=== PATIENT | male | born 1950 | race African-American/Black ===

== ENCOUNTER 2019-01-30 12:18 | Emergency (ER) | payer MEDICARE ==
[2019-01-30 12:45] LABS: Mean Corpuscular HGB CONC 33.2 g/dL (32.0-36.0); Mean Corpuscular Hemoglobin 30.6 pg (27.0-31.0); Mean Corpuscular Volume 92.2 fL (78.0-98.0); Mean Platelet Volume 7.5 fL (7.4-10.4); Platelet Count 259 thou/uL (130-400); RBC Distribution Width 12.5 % (11.5-14.5); Red Blood Cell (RBC) Count 4.24 mill/uL (4.70-6.10); White Blood Cell (WBC) Count 4.3 thou/uL (4.8-10.8)
--- NOTE | 2019-01-30 12:53 | RAD ---
EXAM: Portable chest PROVIDED CLINICAL HISTORY: Chest pain COMPARISON: 11/19/2016 FINDINGS: Cardiac and mediastinal silhouette is within normal limits. No focal consolidation, pleural fluid or pneumothorax evident. Implanted loop recorder overlies the left heart. IMPRESSION: No evidence for an acute cardiopulmonary process.
[2019-01-30 13:02] LABS: Lymphocytes 62 % (21-51); MDiff Complete? YES; Monocytes 8 % (0-10); Neutrophil 30 % (42-75); Platelet Morphology Comment Appears Adequate
[2019-01-30 13:09] LABS: ALT (SGPT) 7 U/L (8-55); AST (SGOT) 14 U/L (5-34); Albumin 4.2 g/dL (3.4-4.8); Alkaline Phosphatase 63 U/L (40-150); Anion Gap 10 mmol/L (10-20); BUN (Urea Nitrogen) 8 mg/dL (8.4-25.7); Bilirubin, Total 1.1 mg/dL (0.2-1.2); CK (CPK) 75 U/L (30-200); Calc. Creatinine Clearance 0 mL/min (70-130); Calcium 9.7 mg/dL (7.8-10.44); Carbon Dioxide 29 mmol/L (23-31); Chloride 101 mmol/L (98-107); Estimated GFR-MDRD 88; Globulin 3.5 g/dL (2.4-3.5); Glucose 96 mg/dL (80-115); Lipase 7 U/L (8-78); Potassium 3.8 mmol/L (3.5-5.1); Protein, Total 7.7 g/dL (5.8-8.1); Sodium 136 mmol/L (136-145)
== END 2019-01-30 14:08 | disposition home or self-care (01) ==
LOC: ERS 12:18
DX: R07.9 Chest pain, unspecified (principal); E78.5 Hyperlipidemia, unspecified; E78.00 Pure hypercholesterolemia, unspecified; I10 Essential (primary) hypertension; G30.9 Alzheimer's disease, unspecified; F02.80 Dementia in other diseases classified elsewhere, unspecified severity, without behavioral disturbance, psychotic disturbance, mood disturbance, and anxiety; F20.9 Schizophrenia, unspecified; F41.9 Anxiety disorder, unspecified; F32.9 Major depressive disorder, single episode, unspecified; Z79.899 Other long term (current) drug therapy; Z86.73 Personal history of transient ischemic attack (TIA), and cerebral infarction without residual deficits
CPT/HCPCS: 36415; 71045; 80053; 82550; 83690; 83880; 84484; 85025; 93005; 94760

== ENCOUNTER 2019-02-18 13:05 | Emergency (ER) | payer MEDICARE ==
--- NOTE | 2019-02-18 13:48 | CT ---
CT OF BRAIN PERFORMED WITHOUT CONTRAST ENHANCEMENT: HISTORY: Syncope. COMPARISON: 10/15/2016 exam. FINDINGS: Mild ventricular and sulcal prominence. There are no signs of intracerebral hemorrhage or extraaxial fluid collections. The mastoid air cells and visualized sinuses are clear. IMPRESSION: No acute intracranial abnormalities. POS: TPC
--- NOTE | 2019-02-18 13:58 | RAD ---
XR Chest 1 View Portable History: Dizziness. Generalized weakness Comparison: Radiograph January 30, 2019 Findings: Lungs are without focal confluent airspace consolidation, pneumothorax, or effusion. No acu te osseous abnormality. Mild degenerative changes both acromioclavicular joints. Impression: No acute intrathoracic abnormality.
[2019-02-18 14:01] LABS: #Basophils 0.1 thou/uL (0.0-0.2); #Eosinphils 0.1 thou/uL (0.0-0.7); #Lymphocytes 1.8 thou/uL (1.20-3.40); #Monocytes 0.4 thou/uL (0.11-0.59); #Neutrophils 1.5 thou/uL (1.40-6.50); %Basophils 1.5 % (0.0-1.0); %Eosinophils 2.9 % (0.0-10.0); %Lymphocytes 45.9 % (21.0-51.0); %Monocytes 10.5 % (0.0-10.0); %Neutrophils 39.3 % (42.0-75.0); Hemoglobin 12.5 g/dL (14.0-18.0); Mean Corpuscular HGB CONC 32.8 g/dL (32.0-36.0); Mean Corpuscular Hemoglobin 29.9 pg (27.0-31.0); Mean Corpuscular Volume 91.2 fL (78.0-98.0); Mean Platelet Volume 8.2 fL (7.4-10.4); Platelet Count 181 thou/uL (130-400); RBC Distribution Width 11.9 % (11.5-14.5); Red Blood Cell (RBC) Count 4.18 mill/uL (4.70-6.10); White Blood Cell (WBC) Count 3.9 thou/uL (4.8-10.8)
[2019-02-18 14:21] LABS: Anion Gap 11 mmol/L (10-20); BUN (Urea Nitrogen) 7 mg/dL (8.4-25.7); Calc. Creatinine Clearance 0 mL/min (70-130); Calcium 9.2 mg/dL (7.8-10.44); Carbon Dioxide 28 mmol/L (23-31); Chloride 103 mmol/L (98-107); Estimated GFR-MDRD 89; Glucose 106 mg/dL (80-115); Potassium 3.5 mmol/L (3.5-5.1); Sodium 138 mmol/L (136-145)
[2019-02-18 16:00] LABS: Bilirubin Negative (Negative); Blood, Urine Negative (Negative); Clarity Turbid (Clear); Glucose, Urine (Dipstick) Normal (Negative); Leukocyte Negative Leu/uL (Negative); Nitrite Negative (Negative); Protein, Urine (Dipstick) 20 mg/dL (Neg-Trace); Urobilinogen Greater than 12 mg/dL (Less than 2)
== END 2019-02-18 16:58 | disposition home or self-care (01) ==
LOC: ERS 13:05
DX: R53.1 Weakness (principal); Z86.73 Personal history of transient ischemic attack (TIA), and cerebral infarction without residual deficits; E78.5 Hyperlipidemia, unspecified; I10 Essential (primary) hypertension; G30.9 Alzheimer's disease, unspecified; F41.9 Anxiety disorder, unspecified; F32.9 Major depressive disorder, single episode, unspecified; F20.9 Schizophrenia, unspecified; Z79.899 Other long term (current) drug therapy
CPT/HCPCS: 36415; 70450; 71045; 80048; 81003; 84484; 85025; 93005

== ENCOUNTER 2019-02-21 14:29 | Observation (INO) | payer MEDICARE, OTHER ==
[2019-02-21 14:56] LABS: #Basophils 0.1 thou/uL (0.0-0.2); #Eosinphils 0.1 thou/uL (0.0-0.7); #Lymphocytes 1.4 thou/uL (1.20-3.40); #Monocytes 0.4 thou/uL (0.11-0.59); #Neutrophils 4.4 thou/uL (1.40-6.50); %Basophils 0.9 % (0.0-1.0); %Eosinophils 1.4 % (0.0-10.0); %Lymphocytes 21.7 % (21.0-51.0); %Monocytes 6.9 % (0.0-10.0); %Neutrophils 69.1 % (42.0-75.0); Hemoglobin 12.4 g/dL (14.0-18.0); Mean Corpuscular HGB CONC 33.4 g/dL (32.0-36.0); Mean Corpuscular Hemoglobin 30.3 pg (27.0-31.0); Mean Corpuscular Volume 90.8 fL (78.0-98.0); Mean Platelet Volume 7.7 fL (7.4-10.4); Platelet Count 193 thou/uL (130-400); Red Blood Cell (RBC) Count 4.11 mill/uL (4.70-6.10); White Blood Cell (WBC) Count 6.3 thou/uL (4.8-10.8)
--- NOTE | 2019-02-21 15:21 | CT ---
Head CT without contrast 02/21/2019: COMPARISON: 02/18/2019 HISTORY: Syncope, fall TECHNIQUE: Axial CT imaging at 5 mm intervals from vertex through skull base without contrast FINDINGS: The imaged paranasal sinuses/mastoid air cells are well aerated. No displaced calvarial fra cture is noted. There is no intracranial hemorrhage, midline shift, mass effect, or ventricular enlargement. IMPRESSION: No acute findings in stable head CT.
--- NOTE | 2019-02-21 15:30 | RAD ---
Portable chest: HISTORY: Syncope COMPARISON: none FINDINGS: Lung robbins are clear. Heart and mediastinum appear unremarkable. Vascularity is normal. Visualized osseous structures unremarkable. IMPRESSION: No acute finding
[2019-02-21 15:36] LABS: ALT (SGPT) 12 U/L (8-55); AST (SGOT) 17 U/L (5-34); Albumin 4.1 g/dL (3.4-4.8); Alkaline Phosphatase 62 U/L (40-110); Anion Gap 13 mmol/L (10-20); BUN (Urea Nitrogen) 8 mg/dL (8.4-25.7); Bilirubin, Total 0.5 mg/dL (0.2-1.2); CK (CPK) 73 U/L (30-200); Calc. Creatinine Clearance 0 mL/min (70-130); Calcium 9.5 mg/dL (7.8-10.44); Carbon Dioxide 28 mmol/L (23-31); Chloride 101 mmol/L (98-107); Estimated GFR-MDRD Greater than 90; Globulin 3.3 g/dL (2.4-3.5); Glucose 109 mg/dL (80-115); Potassium 3.2 mmol/L (3.5-5.1); Protein, Total 7.4 g/dL (5.8-8.1); Sodium 139 mmol/L (136-145)
[2019-02-21] MEDS ORDERED: Aspirin 325 MG TAB ONE (16:24)
[2019-02-21 18:26] LABS: Troponin I Less than 0.010 ng/mL (< 0.028)
[2019-02-21] MEDS ORDERED: Potassium Chloride 20 MEQ TAB PO SCH (20:15)
[2019-02-21 21:26] LABS: Troponin I Less than 0.010 ng/mL (< 0.028)
[2019-02-21 21:28] VITALS: BMI 19.5
--- NOTE | 2019-02-21 21:34 | PDOC.EVN ---
Event Note - Event Note Event Note: [id number] HP
--- NOTE | 2019-02-22 01:12 | HP ---
CHIEF COMPLAINT: Syncope. HISTORY OF PRESENT ILLNESS: Mr. Del Rosario is a 69-year-old male with past medical history of CVA, hyperlipidemia, hypertension, dementia, coronary artery disease, and recurrent syncope, presents to the emergency room after syncopal episode witnessed by the family. Also, the patient few days ago had a near syncope. As per family, the patient had a monitoring and evaluation advisor for those events, but as per family, it was not connected?. The patient sees a culinary manager, Dr. Hurt in [place]. Workup in the emergency room including chest x-ray, CT of the brain, EKG unremarkable. The patient's daughter reports the patient was admitted in [place] 2 years ago for similar and was found to have 30% blockage of his arteries. The patient does have a loop recorder and the family will get the device to transmit from home. The patient is being admitted to the hospital for further management. PAST MEDICAL HISTORY: 1. CVA. 2. Syncope. 3. Hypertension. 4. Hyperlipidemia. 5. Alzheimer disease. ALLERGIES: NO KNOWN ALLERGIES. HOME MEDICATIONS: Please see home medication reconciliation form for updated medications. FAMILY HISTORY: Reviewed, noncontributory. REVIEW OF SYSTEMS: Review of 14 systems negative except what is mentioned in history of present illness. PHYSICAL EXAMINATION: GENERAL: The patient is awake, alert. VITAL SIGNS: Blood pressure 114/68, pulse is 63, respiratory rate is 16, temperature 97.5. HEAD AND NECK: Normocephalic, atraumatic. NECK: Supple. No JVD. CHEST: Fair bilateral air entry. HEART: S1, S2. Regular. ABDOMEN: Soft, nontender. Bowel sounds present. NEUROLOGIC: Awake, alert, and oriented. PSYCHIATRIC: Unable to assess. EXTREMITIES: No clubbing or cyanosis. LABORATORY DATA: WBC 6.3, hemoglobin 12.4, platelets 193. Sodium 139, potassium 3.2, BUN 8, creatinine 0.9. Initial troponin 0.01, repeat troponin 0.01. ASSESSMENT: 1. Syncope, recurrent, the patient has a loop recorder. 2. Hypertension. 3. Hyperlipidemia. 4. Alzheimer dementia. PLAN: 1. Admit. 2. Telemetry monitoring. 3. Serial cardiac enzymes. 4. 2D echo. 5. Orthostatic vital signs. 6. Consider Cardiology consultation in a.m., this patient has been having recurrent syncopal episode, he has a loop recorder. As per family, it is not connected? 7. Reconcile home medications. 8. DVT prophylaxis as appropriate. 9. Expected length of stay, at least 1 midnight if the patient is stable and further workup negative. Job ID: [id number]
[2019-02-22] MEDS ORDERED: Aspirin 325 mg Enteric Coated Tablet PO SCH (09:00)
--- NOTE | 2019-02-22 11:24 | CON ---
DATE OF CONSULTATION: HISTORY OF PRESENT ILLNESS: The patient is a 69-year-old gentleman, who presented after losing consciousness. The patient is unable to give a clear history. He sees a bar tacker in [place]. The patient apparently underwent a cardiac catheterization, found to have mild coronary artery disease about a year ago. The patient suffers from Alzheimer disease. The patient also apparently has orthostatic hypotension and is on midodrine. The patient was admitted with a syncopal episode. He apparently lost consciousness a few days ago. It is unclear if he has been compliant with his medications. The patient has a loop recorder placed. The patient denies having any chest pain. PAST MEDICAL HISTORY: 1. Coronary artery disease. 2. Hypertension. 3. Alzheimer disease. 4. Hyperlipidemia. PAST SURGICAL HISTORY: None. ALLERGIES: NO KNOWN DRUG ALLERGIES. FAMILY HISTORY: There is no strong family history of heart disease. MEDICATIONS: 1. Risperidone 2 at bedtime. 2. Potassium 10 daily. 3. Protonix 40 daily. 4. Midodrine 10 t.i.d. 5. Magnesium oxide 400 b.i.d. 6. Folic acid one tablet daily. 7. Lipitor 40 at bedtime. REVIEW OF SYSTEMS: Review of systems otherwise is unremarkable. PHYSICAL EXAMINATION: GENERAL: Confused gentleman. VITAL SIGNS: Blood pressure of sitting 105/66, standing 103/64, supine 122/66. NECK: No jugular venous distention. LUNGS: Clear to auscultation. HEART: Regular rate and rhythm. Normal S1 and S2. No murmurs. ABDOMEN: Nondistended. EXTREMITIES: Showed no edema. VASCULAR: Radial pulses are 2+. LABORATORY DATA: Sodium 139, potassium 3.2, chloride 101, bicarbonate 28, BUN 8 , and creatinine 0.91, glucose 109. White blood cell count 6.3, hemoglobin 12.4, hematocrit 37.3, platelets 193. IMAGING STUDIES: EKG reveals him to have sinus bradycardia with Q-wave suggestive of septal infarct. IMPRESSION: 1. Syncope, probably orthostatic. 2. Alzheimer disease. 3. History of cerebrovascular accident. 4. History of coronary artery disease. 5. Dyslipidemia. Unfortunately, this gentleman had a syncopal episode. His bar tacker has him on midodrine and has placed a loop recorder. Would interrogate the loop recorder. We will obtain records from his bar tacker. We will follow this patient with you through his hospitalization. Melquiades ID: [id number] MTDD
[2019-02-22 16:11] VITALS: BP 105/63; TEMP 97.9
--- NOTE | 2019-02-22 18:57 | DIS ---
DATE OF ADMISSION: 02/21/2019 DATE OF DISCHARGE: 02/22/2019 DISCHARGE DIAGNOSES: 1. Syncopal episode, likely due to orthostatic hypotension. 2. Orthostatic hypotension. 3. Hypokalemia, mild. 4. Alzheimer dementia, mild. 5. Deconditioning. CONSULTATIONS: Dr. Jesse Warner with Cardiology Service. PERTINENT LABORATORY AND X-RAY FINDINGS: Potassium 3.2, creatinine 0.91. Troponin I negative x3. CBC showed a white hemoglobin of 12.4, hematocrit 37.3, platelet count 193. CT of the brain without contrast dated 02/21/2019, showed no acute intracranial process. Portable chest x-ray dated 02/21/2019, showed no acute process. 2D transthoracic echocardiogram dated 02/22/2019, showed ejection fraction of 55% to 60%. Diastolic dysfunction noted. Loop recorder interrogation showed normal functioning device since last interrogation on 11/16/2018. HOSPITAL COURSE: The patient was observed on the telemetry unit after initially presenting status post syncopal episode. The patient underwent an extensive evaluation including neuroimaging and metabolic evaluation without an acute intracranial process identified. The patient was noted with orthostatic changes on vital sign assessment with recommendations to continue midodrine 10 mg t.i.d. The patient underwent interrogation of his loop recorder showing no acute dysrhythmia or pauses to explain the patient's presentation. 2D transthoracic echocardiogram was performed showing overall preserved ejection fraction and cardiac efficiency. Overall, the patient did remain clinically stable during the hospital course with stable vital signs. I have examined the patient and discussed followup with the patient's daughter and the patient, who verbalized understanding and in agreement. The patient overall clinically stable and ready for discharge on 02/22/2019. DISCHARGE MEDICATIONS: 1. Lipitor 40 mg p.o. at bedtime. 2. Vitamin D3 of 2000 units p.o. daily. 3. Vitamin B12 of 1000 mcg p.o. daily. 4. Folic acid 1 mg p.o. daily. 5. Multivitamin 1 tablet p.o. daily. 6. Potassium chloride 10 mEq p.o. daily. 7. Risperdal 2 mg p.o. at bedtime. 8. Magnesium oxide 400 mg p.o. b.i.d. 9. Midodrine 10 mg p.o. t.i.d. 10. Protonix 40 mg p.o. daily. FOLLOWUP: The patient is to follow up with his primary care provider, Dr. López after discharge. CONDITION ON DISCHARGE: Stable. ACTIVITY: Ad-bethany. DIET: Heart healthy. CODE STATUS: Full. DISPOSITION: Home on 02/22/2019. Job ID: [id number]
--- NOTE | 2019-02-26 14:39 | EKG ---
Test Reason : Blood Pressure : / mmHG Vent. Rate : 059 BPM Atrial Rate : 059 BPM P-R Int : 144 ms QRS Dur : 072 ms QT Int : 444 ms P-R-T Axes : 073 039 058 degrees QTc Int : 439 ms Sinus bradycardia Septal infarct , age undetermined Abnormal ECG Confirmed by SHIRLEY FRANKLIN DO ([id number]), food expeditor FLAVIA JAFFE ([id number]) on 02/26/2019 2:38:38 PM Referred By: Confirmed By:SHIRLEY FRANKLIN DO
== END 2019-02-22 19:41 | disposition home or self-care (01) ==
LOC: ERS 14:29 → ERHOLD 16:55 → EEVIPCON 16:55 → 2SW 21:39
PROVIDERS: ADMIT Internal Medicine; ATTEND Internal Medicine
DX: I95.1 Orthostatic hypotension (principal); I10 Essential (primary) hypertension; I25.10 Atherosclerotic heart disease of native coronary artery without angina pectoris; E78.5 Hyperlipidemia, unspecified; E87.6 Hypokalemia; G30.9 Alzheimer's disease, unspecified; F02.80 Dementia in other diseases classified elsewhere, unspecified severity, without behavioral disturbance, psychotic disturbance, mood disturbance, and anxiety; F41.9 Anxiety disorder, unspecified; F32.9 Major depressive disorder, single episode, unspecified; Z79.899 Other long term (current) drug therapy; Z86.73 Personal history of transient ischemic attack (TIA), and cerebral infarction without residual deficits; Z88.0 Allergy status to penicillin
CPT/HCPCS: 70450; 71045; 80053; 82550; 84484 ×2; 85025; 93005; 93306; 99285; G0378 ×3; 36415

== ENCOUNTER 2019-07-07 12:45 | Emergency (ER) | payer MEDICARE, OTHER ==
[2019-07-07 13:20] LABS: #Eosinphils 0.1 thou/uL (0.0-0.7); #Lymphocytes 2.3 thou/uL (1.20-3.40); #Monocytes 0.6 thou/uL (0.11-0.59); #Neutrophils 2.4 thou/uL (1.40-6.50); %Basophils 0.5 % (0.0-1.0); %Eosinophils 1.6 % (0.0-10.0); %Lymphocytes 42.2 % (21.0-51.0); %Neutrophils 44.7 % (42.0-75.0); Hemoglobin 12.4 g/dL (14.0-18.0); Mean Corpuscular HGB CONC 32.4 g/dL (32.0-36.0); Mean Corpuscular Hemoglobin 29.8 pg (27.0-31.0); Mean Corpuscular Volume 92.1 fL (78.0-98.0); Mean Platelet Volume 8.2 fL (7.4-10.4); Platelet Count 187 thou/uL (130-400); RBC Distribution Width 12.7 % (11.5-14.5); Red Blood Cell (RBC) Count 4.17 mill/uL (4.70-6.10); White Blood Cell (WBC) Count 5.3 thou/uL (4.8-10.8)
--- NOTE | 2019-07-07 13:39 | RAD ---
SINGLE VIEW OF THE CHEST: 07/07/19 COMPARISON: 02/21/19 HISTORY: Syncope. FINDINGS: Single view of the chest shows a normal sized cardiomediastinal silhouette. Cardiac monitoring device projects over the left chest wall. There is no evidence of consolidation, mass, pleural effusion. De generative changes are seen in the spine. IMPRESSION: No evidence of acute cardiopulmonary disease. POS: TPC
[2019-07-07 13:46] LABS: ALT (SGPT) 12 U/L (8-55); AST (SGOT) 21 U/L (5-34); Albumin 4.1 g/dL (3.4-4.8); Alkaline Phosphatase 70 U/L (40-110); Anion Gap 13 mmol/L (10-20); BUN (Urea Nitrogen) 11 mg/dL (8.4-25.7); Bilirubin, Total 0.5 mg/dL (0.2-1.2); CK (CPK) 350 U/L (30-200); Calc. Creatinine Clearance 0 mL/min (70-130); Calcium 9.4 mg/dL (7.8-10.44); Carbon Dioxide 28 mmol/L (23-31); Chloride 103 mmol/L (98-107); Estimated GFR-MDRD 90; Globulin 3.2 g/dL (2.4-3.5); Glucose 104 mg/dL (80-115); Potassium 3.9 mmol/L (3.5-5.1); Protein, Total 7.3 g/dL (5.8-8.1); Sodium 140 mmol/L (136-145)
--- NOTE | 2019-07-07 14:12 | CT ---
Exam: CT brain PROVIDED CLINICAL HISTORY: Syncope COMPARISON: 02/21/2019 FINDINGS: The ventricular system is normal in size and morphology. No evidence for intracranial hemorrhage or mass effect. The extracranial soft tissues and osseous structures demonstrate no evidence for an acute abnormality. IMPRESSION: No evidence for intracranial hemorrhage or mass effect.
[2019-07-07 15:07] LABS: Bilirubin Negative (Negative); Blood, Urine Negative (Negative); Clarity Clear (Clear); Glucose, Urine (Dipstick) Normal (Negative); Leukocyte Negative Leu/uL (Negative); Nitrite Negative (Negative); Protein, Urine (Dipstick) Negative (Neg-Trace); Urobilinogen 3 mg/dL (Less than 2)
--- NOTE | 2019-07-10 01:33 | EKG ---
Test Reason : Blood Pressure : / mmHG Vent. Rate : 067 BPM Atrial Rate : 067 BPM P-R Int : 138 ms QRS Dur : 074 ms QT Int : 400 ms P-R-T Axes : 061 049 068 degrees QTc Int : 422 ms Normal sinus rhythm Normal ECG Confirmed by ALEJANDRA JACKSON ([id number]), web content editor CAPO RILEY ([id number]) on 07/10/2019 1:32:46 AM Referred By: Confirmed By:ALEJANRDA Eastman
== END 2019-07-07 19:17 | disposition home or self-care (01) ==
LOC: ERS 12:45
DX: R55 Syncope and collapse (principal); E78.5 Hyperlipidemia, unspecified; E78.00 Pure hypercholesterolemia, unspecified; G30.9 Alzheimer's disease, unspecified; F41.9 Anxiety disorder, unspecified; F20.9 Schizophrenia, unspecified; Z86.73 Personal history of transient ischemic attack (TIA), and cerebral infarction without residual deficits; Z79.899 Other long term (current) drug therapy
CPT/HCPCS: 36415; 70450; 71045; 80053; 81003; 82550; 84484; 85025; 93005; 94760; 96360

== ENCOUNTER 2020-04-10 15:20 | Inpatient (IN) | payer MEDICARE ==
--- NOTE | 2020-04-10 15:47 | RAD ---
XR Chest 1 View Portable HISTORY: Altered mental status COMPARISON: 07/07/2019 FINDINGS: The heart size is normal. There are hazy opacities in the right medial lung base. No pneumo thoraces or pleural effusions are seen. Possibility of pneumonia should be considered.
[2020-04-10] MEDS ORDERED: Vancomycin 1 GM/200 ML BAG ONE (15:53)
[2020-04-10] MEDS ORDERED: Cefepime 2 GM VIAL ONE (15:53)
[2020-04-10 16:15] LABS: Actual Bicarbonate (HCO3a) 22.9 mEq/L (22-28); Analyzer IN Cardio ER; Base Excess (BEa) 0.9 mEq/L (-2.0 to +3.0); CO2 Tension 29.2 mmHg (35.0-45.0); Calcium, Ionized (arterial) 1.17 mmol/L (1.12-1.30); Carboxyhemoglobin (COHb) 0.2 gm% (0.0-3.0); Hemoglobin (Hb) 13.5 g/dL (14.0-18.0); Potassium - ABG Lab 3.54 mmol/L (3.70-5.30); pH, Arterial 7.51 (7.35-7.45)
[2020-04-10 16:18] LABS: O2 Tension (PaO2), arterial 54.9 mmHg (> 70.0); Puncture Site RBA
[2020-04-10 16:26] LABS: Bilirubin Negative (Negative); Blood, Urine 3+ (Negative); Clarity Turbid (Clear); Glucose, Urine (Dipstick) Normal (Negative); Ketone, Urine 20 mg/dL (Negative); Leukocyte Negative Leu/uL (Negative); Nitrite Negative (Negative); Protein, Urine (Dipstick) 70 mg/dL (Neg-Trace); Specific Gravity, Urine 1.031 (1.002-1.036); Urobilinogen Normal mg/dL (Less than 2); WBC/HPF 0-3 HPF (0-3); pH, Urine 5.5 (5.0-9.0)
--- NOTE | 2020-04-10 16:37 | CT ---
CT HEAD WITHOUT CONTRAST: 04/10/20 INDICATIONS: Mental status change. Found unresponsive. COMPARISON: Comparison made to head CT of 07/07/19. FINDINGS: Ventricles have normal size and position. No evidence of intracranial mass, hemorrhage, infarct, or o ther acute process. No interval change. The paranasal sinuses are clear. Mucous retention cyst in the left maxillary antrum. IMPRESSION: No acute intracranial process identified. POS: AGW
[2020-04-10 16:38] LABS: Bacteria/HPF Rare-Few HPF (None Seen); Squamous Epithelial 0-3 HPF (0-3)
[2020-04-10 16:40] LABS: Amphetamine Not Detected (NotDetected); Barbiturates Screen Not Detected (NotDetected); Benzodiazepine Screen Not Detected (NotDetected); Cocaine Metabolite Screen Not Detected (NotDetected); Medtox Control Line Valid? VALID (VALID); Medtox Reader # READER 1; Methadone Not Detected (NotDetected); Methamphetamine Not Detected (NotDetected); Opiate Screen Not Detected (NotDetected); Oxycodone Screen Not Detected (NotDetected); Phencyclidine (PCP) Not Detected (NotDetected); THC/Cannabinoid Screen Not Detected (NotDetected); Tricyclic Screen Not Detected (NotDetected)
--- NOTE | 2020-04-10 16:40 | CT ---
CT CERVICAL SPINE WITHOUT CONTRAST: 04/10/20 INDICATION: 70-year-old male fond unresponsive lying in bed with urine of unknown amount of time. COMPARISON: None. FINDINGS: Spinal alignment is preserved. There is advanced disc degenerative disease of C5-6 and C6-7 with mult ilevel severe facet osteoarthritic change. No acute fracture or subluxation is evident. Prevertebral soft tissues appear within normal limits. Craniocervical junction appears within normal limits. The v isualized lung apices are clear. IMPRESSION: No acute fracture or subluxation demonstrated. POS:
[2020-04-10 17:20] LABS: SARS-CoV-2 NAA Rapid Test Not Detected (NotDetected)
[2020-04-10 17:21] LABS: Hemoglobin 13.9 g/dL (14.0-18.0); Mean Corpuscular HGB CONC 31.2 g/dL (32.0-36.0); Mean Corpuscular Hemoglobin 28.9 pg (27.0-31.0); Mean Corpuscular Volume 92.7 fL (78.0-98.0); Mean Platelet Volume 9.3 fL (7.4-10.4); Platelet Count 153 thou/uL (130-400); RBC Distribution Width 14.2 % (11.5-14.5); White Blood Cell (WBC) Count 9.4 thou/uL (4.8-10.8)
[2020-04-10 17:35] LABS: Acetaminophen Less than 6.0 mcg/mL (10.0-30.0); Alcohol Less than 10 mg/dL (Less than 10); Salicylate Less than 8.0 mg/dL (15.0-30.0)
[2020-04-10] MEDS ORDERED: Acetaminophen 650 MG Suppository PR PRN (17:38)
[2020-04-10] MEDS ORDERED: Ondansetron PF 4 MG/2 ML Vial IVP PRN (17:38)
[2020-04-10] MEDS ORDERED: Senokot S 8.6-50 MG TAB PO PRN (17:38)
[2020-04-10] MEDS ORDERED: Bisacodyl 10 MG SUPP PR PRN (17:38)
[2020-04-10] MEDS ORDERED: Guaifenesin DM 100-10/5 ML UDCUP PO PRN (17:38)
[2020-04-10 17:39] LABS: ALT (SGPT) 49 U/L (8-55); AST (SGOT) 173 U/L (5-34); Albumin 3.5 g/dL (3.4-4.8); Alkaline Phosphatase 48 U/L (40-110); Anion Gap 19 mmol/L (10-20); BUN (Urea Nitrogen) 49 mg/dL (8.4-25.7); Band 23 % (5-11); Calc. Creatinine Clearance 0 mL/min (70-130); Carbon Dioxide 28 mmol/L (23-31); Chloride 119 mmol/L (98-107); Globulin 3.9 g/dL (2.4-3.5); Glucose 96 mg/dL (83-110); Lipase 51 U/L (8-78); Lymphocytes 12 % (21-51); MDiff Complete? YES; Monocytes 9 % (0-10); Neutrophil 56 % (42-75); Platelet Morphology Comment Appears Adequate; Potassium 3.8 mmol/L (3.5-5.1); Protein, Total 7.4 g/dL (5.8-8.1); RBC Morphology Normal
[2020-04-10] MEDS ORDERED: Acetaminophen 650 MG Suppository ONE (17:48)
[2020-04-10] MEDS ORDERED: Acetaminophen 325 MG Suppository ONE (17:48)
[2020-04-10 17:51] LABS: CK (CPK) 4695 U/L (30-200)
[2020-04-10 18:00] LABS: CKMB 16.6 ng/mL (0-6.6); Sodium 162 mmol/L (136-145)
[2020-04-10 19:11] LABS: CSF Source CSF; Clarity Hazy (Clear); Tube # 1
[2020-04-10 19:13] LABS: CSF Source CSF; Clarity Clear (Clear); Tube # 4
[2020-04-10 19:14] LABS: CSF, Glucose 68 mg/dl (40-70); CSF, Protein 45 mg/dL (15-40)
--- NOTE | 2020-04-10 19:25 | HP ---
PRIMARY CARE PHYSICIAN: Dr. Nicholas López. REASON FOR ADMISSION: Found down unknown time, rhabdomyolysis, sacral decubitus ulcer present on admission, acute kidney injury, metabolic acidosis, severe dehydration, acute metabolic encephalopathy. HISTORY OF PRESENTING ILLNESS: Please note majority of this history is obtained by talking to ER physician, Dr. Prado, family members, and prior records as the patient is currently obtunded. He was apparently found down at a [facility] for unknown period of time. He was found with urine all over him. Per family, they saw him on and they had given him a plate of food, which he carried from the parking lot dragging his feet. He was apparently a bit confused then, but did talk to them and said that he is going to eat and left them. The family also found some neck lesion on the left side, which was appearing a little funky per them. On arrival here, the patient has had CT brain and CT cervical spine, which has not shown any acute fractures or stroke, so his serum sodium levels are 162, creatinine is 1.47, CK levels of 4695, serum bicarb is 28. COVID-19 PCR has been negative now here in the ER. PAST MEDICAL AND SURGICAL HISTORY: History of dementia; the last echo in February 2019 showed a normal ejection fraction with diastolic dysfunction; history of CVA; coronary artery disease; hypertension; dyslipidemia; dementia; history of coronary artery disease per prior records; history of recurrent syncope, on midodrine. The patient sees a auctioneer art in [place], Dr. Hurt, has had right shoulder surgery, LINQ monitor placed, cardiac catheterization in 2018. CURRENT MEDICATIONS: Per records the patient is on: 1. Magnesium oxide 400 mg daily. 2. Sertraline 50 mg daily. 3. Donepezil 10 mg daily. 4. K-Dur 20 mEq daily. 5. Vitamin B12 of 1000 mcg daily. 6. Midodrine 10 mg daily. PERSONAL HISTORY: Per records, he does not abuse alcohol or drugs. No history of smoking. He is currently a resident of [facility]. FAMILY HISTORY: Significant for hypertension and heart disease. ALLERGIES: TO PENICILLIN. CODE STATUS: Full. This was discussed with the patient's daughter and power of claim attorney, Olivier Tree, number to reach her is [phone]. REVIEW OF SYSTEMS: Cannot be obtained as the patient is obtunded at present. PHYSICAL EXAMINATION: GENERAL: The patient is a 70-year-old male who is currently obtunded and is comatose, barely opens his eyes and closes them. He is not seen moving any extremities. VITAL SIGNS: Blood pressure 150/82, pulse 90 per minute, respiratory rate 30 per minute, temperature 100.9 degrees Fahrenheit, saturating 97% on room air. NECK: Supple. No elevated JVD. HEENT: Eyes, pupils are 2 mm and sluggishly reacting to light. Oral cavity, mucous membranes are dry. No exudates or congestion. CARDIOVASCULAR SYSTEM: S1 and S2 heard. Regular rhythm. RESPIRATORY SYSTEM: Air entry 1+ bilateral. Scattered rhonchi plus no rales or wheezing. ABDOMEN: Soft. Bowel sounds heard. No tenderness, rigidity, or guarding. EXTREMITIES: Right lower extremity has some mild edema. Left lower extremity has no edema. Peripheral pulses are 1+ bilateral. No ischemic ulcerations or gangrene. CENTRAL NERVOUS SYSTEM: The patient is not seen moving any extremities. He has neck rigidity. There is essentially fully comatose at present except for eye opening. He has reflex withdrawal for Babinski. No gross focal motor deficits seen. PSYCHIATRIC SYSTEM: Cannot be assessed as the patient is obtunded at present. LABORATORY DATA: White count of 9.4, H and H of 13 and 44, platelet count 153, MCV is 92 with 56% neutrophils and 23% bands. PH 7.51, pCO2 of 29, pO2 of 54. Sodium 162, serum chloride 119, bicarb is 28, BUN 49, creatinine 1.4, lactic acid 2.7, AST 173, ALT 49, alkaline phosphatase 48. CK level 4695, CK-MB 16, troponin I 0.16. Ammonia levels of 38. Albumin 3.5. BNP 38. TSH 1.1. Lipase 51. UA is negative for nitrite and leukocyte esterase. Urine drug screen is negative. Plasma alcohol less than 10. COVID-19 PCR rapid test done in the ER is negative. CT cervical spine without contrast done shows no acute fracture or subluxation. CT brain shows no acute intracranial process. Chest x-ray done shows questionable hazy opacity in the right medial lung zone. No pneumothorax or pleural effusion, possible pneumonia. CLINICAL IMPRESSION AND PLAN: The patient will be admitted to [facility] after being found down for unknown period of time, rhabdomyolysis, acute kidney injury, acute metabolic encephalopathy, possible sepsis, possible pneumonia. We will aggressively hydrate him with D5 water at 100 mL per hour. He will be on vancomycin and cefepime. Protonix 40 mg IV daily. We will also give him rectal 300 mg aspirin. We will obtain echo with 2D Doppler for current left ventricular function. ER physician is trying to obtain CSF for culture, cell count, and chemistry, and we will follow up on that. I have given complete updates to the patient's daughter Ms. Leavitt who is the power of claim attorney for the patient. The patient has 9 children and Ms. Leavitt is the POA and she specifically wants all the information given to her and she will disseminate the information to her siblings. His overall prognosis is very poor and I have communicated this to the daughter. He has underlying baseline dementia as well, but the patient apparently was ambulating and was communicating before any of this happened. We will consultDr. Casiano for Nephrology and Dr. Romo for the decubitus ulcer that is present on the sacral and buttock area for possible debridement. Job ID: [id number] [facility]
[2020-04-10 19:41] LABS: Color Of CSF Supernatant COLORLESS (Colorless); Unspun CSF Color COLORLESS (Colorless)
[2020-04-10 19:42] LABS: Tube # 2
[2020-04-10] MEDS: Dextrose 5% in Water 1,000 ML IV SCH (19:51)
[2020-04-10 21:22] LABS: Lactic Acid 2.9 mmol/L (0.5-2.2); Troponin I 0.162 ng/mL (< 0.028)
[2020-04-10] MEDS: Heparin 5,000 UNITS/ML VIAL SC SCH (21:34)
[2020-04-10 23:27] LABS: Troponin I 0.148 ng/mL (< 0.028)
[2020-04-11] MEDS: Dextrose 5% in Water 1,000 ML IV SCH ×2 (03:53→13:52)
[2020-04-11 04:08] LABS: ALT (SGPT) 45 U/L (8-55); AST (SGOT) 161 U/L (5-34); Alkaline Phosphatase 38 U/L (40-110); Anion Gap 17 mmol/L (10-20); BUN (Urea Nitrogen) 37 mg/dL (8.4-25.7); Bilirubin, Total 1.1 mg/dL (0.2-1.2); Calc. Creatinine Clearance 55 mL/min (70-130); Calcium 8.4 mg/dL (7.8-10.44); Carbon Dioxide 23 mmol/L (23-31); Chloride 121 mmol/L (98-107); Globulin 3.6 g/dL (2.4-3.5); Glucose 147 mg/dL (83-110); Potassium 3.6 mmol/L (3.5-5.1); Protein, Total 6.6 g/dL (5.8-8.1); Sodium 157 mmol/L (136-145)
[2020-04-11 04:32] LABS: Band 20 % (5-11); Hemoglobin 12.6 g/dL (14.0-18.0); Lymphocytes 3 % (21-51); MDiff Complete? YES; Mean Corpuscular HGB CONC 32.1 g/dL (32.0-36.0); Mean Corpuscular Hemoglobin 29.3 pg (27.0-31.0); Mean Corpuscular Volume 91.4 fL (78.0-98.0); Mean Platelet Volume 9.1 fL (7.4-10.4); Neutrophil 77 % (42-75); Nucleated RBC 1 % (0); Platelet Count 150 thou/uL (130-400); Platelet Morphology Comment Appears Adequate; RBC Distribution Width 13.8 % (11.5-14.5); White Blood Cell (WBC) Count 7.5 thou/uL (4.8-10.8)
[2020-04-11] MEDS: Pantoprazole 40 MG VIAL IVP SCH (08:53)
[2020-04-11] MEDS: Heparin 5,000 UNITS/ML VIAL SC SCH ×2 (08:55→19:59)
[2020-04-11] MEDS ORDERED: FLU VACC QS2020-21(65YR UP)/PF 240 MCG/0.7 ML SYRINGE IM ONE (09:00)
[2020-04-11 09:21] LABS: SARS-CoV-2 MS2 Positive; SARS-CoV-2 N Gene Negative; SARS-CoV-2 S Gene Negative; SARS-CoV-2 by NAA Not Detected (NotDetected); SARS-CoV-2 orf1ab Negative
--- NOTE | 2020-04-11 10:02 | CON ---
DATE OF CONSULTATION: 04/11/20 HISTORY OF PRESENT ILLNESS: Mr. Del Rosario is a 70-year-old black male who was admitted due to mental status change. He was initially noted to be in acute kidney injury and hypernatremic. Volume repletion was given. Based on the history, the patient was found to be quite confused and was said to be dragging his left side according to the family. He was then sent today for further management. On arrival at the ER, CT scan of the brain and cervical spine was done, which showed no acute abnormality. We are now being consulted for his acute kidney injury as well as hypernatremia. Please note that acute kidney injury is much improved with IV hydration as well as there is significant improvement of the hypernatremia. REVIEW OF SYSTEMS: Not obtainable since the patient is not verbally responsive. HOME MEDICATIONS: Included: 1. K-Dur 20 mEq once a day. 2. Midodrine 10 mg daily. 3. Vitamin B12 of 1000 mcg tablet daily. 4. Donepezil 10 mg daily. 5. Sertraline 50 mg daily. 6. Magnesium oxide 400 mg once a day. PAST MEDICAL HISTORY: Includes: 1. History of dementia. 2. History of CHF from diastolic dysfunction. 3. Status post CVA. 4. Coronary artery disease. 5. Hypertension. 6. Dyslipidemia. 7. Status post syncope. 8. Chronic hypotension. PAST SURGICAL HISTORY: 1. Status post right shoulder surgery. 2. Status post cardiac catheterization. SOCIAL HISTORY: The patient currently in the [facility]. No history of smoking. No alcohol. No IV drug abuse. Sedentary lifestyle. FAMILY HISTORY: Positive for hypertension. ALLERGIES: PENICILLIN. TRAUMA: None. IMMUNIZATIONS: Up-to-date. HOSPITALIZATIONS: Please see past medical history. PHYSICAL EXAMINATION: VITAL SIGNS: Blood pressure is noted at 113/54, heart rate 108, respiratory rate 14 and currently noted at 16, and O2 saturation 97%. GENERAL: The patient is unresponsive to verbal stimuli, comfortable, supine, not in distress. SKIN: Adequate turgor. HEENT: Pinkish conjunctivae. Anicteric sclerae. NECK: No neck mass. No carotid bruits. No JVD. CHEST: No deformities. LUNGS: Decreased breath sounds. HEART: Tachycardic. No murmur. No gallops. No rubs. ABDOMEN: Globular, soft, and nontender. No masses. EXTREMITIES: No edema. No deformities. NEUROLOGIC: The patient is unresponsive to verbal stimuli. LABORATORY DATA: On 04/11/2020: White count 7.5 and hemoglobin 12.6. Sodium 157, potassium 3.6, chloride 121, carbon dioxide 23, BUN 37, creatinine 1.08, glucose 147, and calcium 8.4. AST 161, ALT 45, and albumin is 3.0. Further review of his creatinine on 04/10/2020 of 1.47, sodium was noted at 162. On 07/07/2019; BUN [address] scan of the brain on 04/10/2020, no acute intracranial abnormality. On 04/10/2020, chest x-ray shows some opacity in the right medial lung base. Please note, COVID testing was done on 04/10/2020, and it was negative. ASSESSMENT AND PLAN: 1. Acute kidney injury, this is a superimposed hemodynamically-mediated renal dysfunction. Much improved with hydration. Creatinine now is in within normal. No indication for any dialytic intervention. 2. Hypernatremia, slowly improving serum sodium. The patient is currently on D5 water at 100 mL/hour. Our recommendation is to continue current hydration with hypotonic solution. Serum sodium is actually improving. 3. Lung infiltrate, on empiric IV antibiotics. The patient is undergoing a 2nd COVID testing. 4. Overall agree with current management. Job ID: [id number] [facility]ITALJaren
--- NOTE | 2020-04-11 11:35 | CON ---
DATE OF CONSULTATION: 04/11/2020 REASON FOR CONSULTATION: IMCU placement. HISTORY OF PRESENT ILLNESS: This is a 70-year-old male who basically presented to the hospital for altered mental status. He cannot give anything in the way of history. He has been dragging his left side according to the family. He had a CT scan done in the ER of the brain, which did not show any acute abnormalities. He has some rhabdomyolysis and hypernatremia. He has had 2 COVID tests, both of which were negative. PAST MEDICAL HISTORY: 1. Dementia. 2. Diastolic cardiac dysfunction with CHF. 3. Stroke. 4. Coronary artery disease. 5. Hypertension. 6. Hyperlipidemia. 7. Syncope. 8. Chronic hypotension. PAST SURGICAL HISTORY: 1. Right shoulder surgery. 2. Cardiac catheterization. SOCIAL HISTORY: He apparently lives in a correction. He is a nonsmoker. Does not use illicit drugs. ALLERGIES: PENICILLIN. MEDICATIONS: Prior to admission: 1. K-Dur. 2. Midodrine. 3. Vitamin B12. 4. Donepezil. 5. Sertraline. 6. Magnesium. REVIEW OF SYSTEMS: Cannot be obtained secondary to his altered mental status. PHYSICAL EXAMINATION: VITAL SIGNS: Temperature 99.0, pulse 108, blood pressure 113/54, and saturation 97%. GENERAL: He is obtunded and he will withdraw to pain in all extremities except his left arm. HEENT: He has poor dentition. NECK: No JVD. LUNGS: Clear anteriorly. CARDIOVASCULAR: S1 and S2. Slightly tachycardic. ABDOMEN: Soft and nontender. EXTREMITIES: No clubbing or cyanosis. Severe muscle wasting. LABORATORY DATA: White blood cell count 7.5, hematocrit 39.3, and platelet count 115. A pH 7.51, pCO2 of 29, PO2 of 54 on room air. Sodium 157, potassium 3.6, chloride 121, CO2 of 23, BUN 37, creatinine 1.1, and glucose 147. Creatine kinase level is 4695. Tox screen was negative. A chest x-ray demonstrates hyperinflated lungs, I do not see any acute infiltrates. ASSESSMENT: 1. Profound dehydration in a correction patient. 2. Suspected stroke given the history that family gave of the left-sided weakness. 3. Hypernatremia. 4. Rhabdomyolysis. RECOMMENDATIONS: 1. The patient is currently being hydrated with free water. I agree with empiric antibiotic coverage. I doubt the patient has COVID given 2 negative tests. 2. Would not hesitate to place OG tube and start tube feedings in this patient. Job ID: [id number]
[2020-04-11] MEDS: Cefepime 1 GM in Sodium Chloride 0.9% 100 ML IVPB SCH (15:32)
--- NOTE | 2020-04-11 15:52 | PDOC.HOSPP ---
- Subjective Encounter Date: 04/11/20 Encounter Time: 15:35 Subjective: f/u for severe dehydration/hypernatremia/encephalopathy receiving Cefepime/Vancomycin/IVF's. Nursing reports pt unresponsive today and sleeping. - Objective Vital Signs & Weight: Vital Signs (12 hours) Temp Pulse Pulse Resp BP Pulse Ox Pulse Ox 04/11/20 14:14 61 99/43 L 98 04/11/20 12:55 89 26 H 100 04/11/20 08:44 98 04/11/20 05:33 99.0 F Weight Admit Weight 136 lb Weight 136 lb Most Recent Monitor Data Heart Rate from ECG 91 NIBP 106/50 NIBP BP-Mean 68 Respiration from ECG 35 SpO2 98 I&O: 04/10/20 04/11/20 04/12/20 06:59 06:59 06:59 Intake Total 970 Output Total 500 Balance 470 Result Diagrams: 04/11/20 03:18 04/11/20 03:18 Additional Labs: Microbiology 04/10/20 18:23 Spinal Fluid - Miscellaneous Desc..see Notes Body Fluid Culture - Preliminary 04/10/20 16:49 Venous blood - Right Arm Blood Culture - Preliminary Specimen has been received and culture in progress. No Growth to date. 04/10/20 15:55 Venous blood - Left Hand Blood Culture - Preliminary Specimen has been received and culture in progress. No Growth to date. 04/10/20 15:40 Urine sharpe catheter Urine Culture - Preliminary NO GROWTH AT 12 HOURS 11/19/16 03:05 Venous blood - Right Hand Blood Culture - Preliminary NO GROWTH AT 48 HOURS 11/19/16 03:03 Venous blood - Left Arm Blood Culture - Preliminary NO GROWTH AT 48 HOURS Laboratory Tests 11/18/16 11/18/16 11/18/16 20:57 20:59 20:59 Hgb 10.8 L Sodium Potassium 3.3 L Creatinine Lactic Acid 2.7 H Magnesium AST ALT Ammonia Creatine Kinase Troponin I TSH 3rd Generation SARS-CoV-2 (PCR) SARS-CoV-2 Rap RNA(RT-PCR) 11/19/16 11/19/16 11/20/16 00:37 06:27 04:20 Hgb Sodium Potassium Creatinine Lactic Acid 3.0 H Magnesium 1.3 L 1.8 AST ALT Ammonia Creatine Kinase Troponin I TSH 3rd Generation SARS-CoV-2 (PCR) SARS-CoV-2 Rap RNA(RT-PCR) 11/20/16 11/20/16 04/10/20 04:20 16:52 15:40 Hgb 8.8 L 8.8 L Sodium Potassium Creatinine Lactic Acid Magnesium AST ALT Ammonia Creatine Kinase Troponin I TSH 3rd Generation SARS-CoV-2 (PCR) SARS-CoV-2 Rap RNA(RT-PCR) Not Detected 04/10/20 04/10/20 04/10/20 16:49 16:49 16:49 Hgb 13.9 L Sodium 162 H* Potassium Creatinine 1.47 H Lactic Acid Magnesium AST 173 H ALT 49 Ammonia Creatine Kinase 4695 H Troponin I 0.168 H TSH 3rd Generation SARS-CoV-2 (PCR) SARS-CoV-2 Rap RNA(RT-PCR) 04/10/20 04/10/20 04/10/20 16:49 16:49 16:49 Hgb Sodium Potassium Creatinine Lactic Acid 2.7 H Magnesium AST ALT Ammonia 38 Creatine Kinase Troponin I TSH 3rd Generation 1.1380 SARS-CoV-2 (PCR) SARS-CoV-2 Rap RNA(RT-PCR) 04/10/20 04/10/20 04/10/20 20:50 20:50 22:49 Hgb Sodium Potassium Creatinine Lactic Acid 2.9 H Magnesium AST ALT Ammonia Creatine Kinase Troponin I 0.162 H 0.148 H TSH 3rd Generation SARS-CoV-2 (PCR) SARS-CoV-2 Rap RNA(RT-PCR) 04/10/20 04/11/20 23:00 03:18 Hgb Sodium Potassium Creatinine Lactic Acid Magnesium AST 161 H ALT 45 Ammonia Creatine Kinase Troponin I TSH 3rd Generation SARS-CoV-2 (PCR) Not Detected SARS-CoV-2 Rap RNA(RT-PCR) Radiology Reviewed by me: Yes (CT brain - neg; PCXR - R mid lung infiltrate) EKG Reviewed by me: Yes (Tele - SR) Hospitalist ROS - Medication Medications: Active Medications Generic Name Dose Route Start Last Admin Trade Name Freq PRN Reason Stop Dose Admin Albuterol/Ipratropium 3 ml 04/10/20 19:00 04/11/20 12:55 Ipratropium/Albuterol Sulfate 3 Ml Neb NEB 3 ml [id number] AILIN Administration Heparin Sodium (Porcine) 5,000 units 04/10/20 21:00 04/11/20 08:55 Heparin 5,000 Units/Ml Vial SC 5,000 units BID AILIN Administration Dextrose/Water 1,000 mls @ 100 mls/hr 04/10/20 17:45 04/11/20 13:52 D5w IV 1,000 mls .Q10H AILIN Administration Cefepime HCl 1 gm/ Sodium 100 mls @ 200 mls/hr 04/11/20 15:00 04/11/20 15:32 Chloride IVPB 100 mls Q24HR@1500 AILIN Administration Pantoprazole Sodium 40 mg 04/11/20 09:00 04/11/20 08:53 Pantoprazole 40 Mg Vial IVP 40 mg DAILY AILIN Administration - Exam General Appearance: ill appearing General - other findings: somnolent, sedat, unresponsive Eye: PERRL ENT: normocephalic atraumatic, dry oral mucosa Neck: supple, symmetric, no JVD, no thyromegaly, no lymphadenopathy Heart: RRR, no gallops, no rubs, normal peripheral pulses Heart - other findings: S1, S2 Respiratory: CTAB, no wheezes, no rales, no ronchi, tachypneic Gastrointestinal: soft, non-tender, non-distended, normal bowel sounds, no palpable masses Gastrointestinal - other findings: scaphoid Extremities: no cyanosis, no clubbing, no edema Skin: tenting Skin - other findings: poor turgor Neurological - other findings: unresponsive, spontaneous resp Psychiatric: somnolent, lethargic Hosp A/P (1) Toxic metabolic encephalopathy Code(s): G92 - TOXIC ENCEPHALOPATHY Status: Acute Plan: Multifactorial process, continue supportive mgmt, IVF's, correct electrolytes, IV abx (2) Hypernatremia Code(s): E87.0 - HYPEROSMOLALITY AND HYPERNATREMIA Status: Acute Plan: Severe, continue current IVF's, serial Na+ monitoring, improved (3) WYATT (acute kidney injury) Code(s): N17.9 - ACUTE KIDNEY FAILURE, UNSPECIFIED Status: Acute Plan: Secondary to volume depletion, avoid nephrotoxic meds and limit contrast, serial creatinine (4) Rhabdomyolysis Code(s): M62.82 - RHABDOMYOLYSIS Status: Acute Plan: Secondary to being down for unknown length of time, continue IVF's, serial CPK (5) Sepsis Code(s): A41.9 - SEPSIS, UNSPECIFIED ORGANISM Status: Acute Plan: Suspected, ? pulmonary/skin source, continue Cefepime/Vancomycin, supportive mgmt as outlined above (6) Sacral decubitus ulcer Code(s): L89.159 - PRESSURE ULCER OF SACRAL REGION, UNSPECIFIED STAGE Status: Acute Qualifiers: Pressure injury stage: stage 3 Qualified Code(s): L89.153 - Pressure ulcer of sacral region, stage 3 Plan: Continue local WCT, turning protocol, Gen Surgery consult for consideration of debridement - Plan sharpe catheter, continue antibiotics, PT/OT, social worker palliative care, speech therapy, DVT proph w/SCDs Consults: Palliative Care Continue supportive mgmt Poor prognosis overall Continue Cefepime/Vancomycin Continue D5W @ 100ml/h WCT for local care Gen surgery consult for potential debridement of sacral ulcer Palliative care consult AM lab: CMP, CBC, CPK
[2020-04-11] MEDS ORDERED: Vancomycin 1 GM in Premix Bag 1 BAG IVPB SCH (16:00)
[2020-04-12] MEDS: Dextrose 5% in Water 1,000 ML IV SCH ×3 (01:15→16:34)
[2020-04-12 04:40] LABS: ALT (SGPT) 33 U/L (8-55); AST (SGOT) 93 U/L (5-34); Albumin 2.6 g/dL (3.4-4.8); Alkaline Phosphatase 37 U/L (40-110); Anion Gap 14 mmol/L (10-20); BUN (Urea Nitrogen) 29 mg/dL (8.4-25.7); Bilirubin, Total 0.9 mg/dL (0.2-1.2); CK (CPK) 1629 U/L (30-200); Calc. Creatinine Clearance 57 mL/min (70-130); Calcium 8.3 mg/dL (7.8-10.44); Carbon Dioxide 28 mmol/L (23-31); Chloride 115 mmol/L (98-107); Globulin 3.3 g/dL (2.4-3.5); Glucose 127 mg/dL (83-110); Potassium 3.4 mmol/L (3.5-5.1); Protein, Total 5.9 g/dL (5.8-8.1); Sodium 154 mmol/L (136-145)
[2020-04-12 04:53] LABS: Band 22 % (5-11); Hemoglobin 11.6 g/dL (14.0-18.0); Hypochromia SLIGHT = 6-15 cells (100X) (0-5/hpf); Lymphocytes 10 % (21-51); MDiff Complete? YES; Mean Corpuscular HGB CONC 32.3 g/dL (32.0-36.0); Mean Corpuscular Hemoglobin 29.9 pg (27.0-31.0); Mean Corpuscular Volume 92.7 fL (78.0-98.0); Mean Platelet Volume 9.9 fL (7.4-10.4); Monocytes 4 % (0-10); Neutrophil 64 % (42-75); Platelet Count 104 thou/uL (130-400); Platelet Morphology Comment Appears Decreased; RBC Distribution Width 13.7 % (11.5-14.5); Red Blood Cell (RBC) Count 3.89 mill/uL (4.70-6.10); White Blood Cell (WBC) Count 11.3 thou/uL (4.8-10.8)
--- NOTE | 2020-04-12 09:01 | PRG ---
DATE OF SERVICE: 04/12/2020 SUBJECTIVE: Mr. Del Rosario is a 70-year-old black male, snf patient, who was admitted for mental status change. He was also noted to be severely hypernatremic at that time and was started on hypotonic solution. No acute events noted last night. OBJECTIVE: VITAL SIGNS: Blood pressure 118/58, heart rate 79, respiratory rate 31, O2 saturation 96%. GENERAL: Minimally responsive, not in distress. SKIN: Adequate turgor. HEENT: He has a pinkish conjunctivae. Anicteric sclerae. NECK: No neck mass. No carotid bruits. No JVD. CHEST: No deformities. LUNGS: Clear breath sounds. No wheezing. No crackles. HEART: Normal sinus rhythm. No murmur. No gallops. No rubs. ABDOMEN: Globular, soft, nontender. No masses. EXTREMITIES: No edema. MEDICATIONS: Medications of April 12, 2020, were reviewed. LABORATORY DATA: Laboratories of April 12, 2020; white count 11.2, hemoglobin 11.6. Sodium 154, potassium 3.4, chloride 115, carbon dioxide 28, BUN 29, creatinine 1.03, glucose 127, calcium 8.3, AST 93, ALT 33, albumin 2.6. Cardiac echo of April 11, 2020, normal EF. ASSESSMENT AND PLAN: 1. Hypernatremia - secondary to volume depletion. Currently, on D5 water. Serum sodium is slowly improving. We will increase D5 water from 100 to 125 mL/h. 2. Mild hypokalemia. KCl 20 mEq IV x1 dose was ordered. 3. Decreased mentation - the patient has underlying dementia. Continuing supportive care. We will recheck base met in a.m. Job ID: [id number]
[2020-04-12] MEDS ORDERED: Potassium Chloride 20 MEQ in Premix Bag 1 BAG IVPB SCH (09:15)
[2020-04-12] MEDS: Heparin 5,000 UNITS/ML VIAL SC SCH ×2 (10:01→20:54)
[2020-04-12] MEDS: Pantoprazole 40 MG VIAL IVP SCH (10:03)
--- NOTE | 2020-04-12 10:56 | PRG ---
DATE OF SERVICE: 04/12/2020 SUBJECTIVE: The patient continues to be obtunded, but is in no acute distress. OBJECTIVE: VITAL SIGNS: Temperature 99.4, pulse 79, blood pressure 118/58. HEENT: Unchanged. NECK: No JVD. LUNGS: Clear anteriorly. CARDIAC: S1, S2. Regular. ABDOMEN: Soft. EXTREMITIES: Severe muscle wasting. LABORATORY DATA: White blood cell count 11.3, hematocrit 36, platelet count 104. Sodium 154, potassium 3.4, chloride 115, CO2 of 28, BUN 29, creatinine 1.0, and glucose 127. Echocardiogram demonstrated EF of 60% to 65%. ASSESSMENT: 1. Metabolic encephalopathy. 2. Profound dehydration with rhabdomyolysis. 3. Suspected stroke. RECOMMENDATION: 1. Continue hydrating as you are. 2. Consider further neurologic workup. 3. Please call if further assistance needed. Job ID: [id number]
--- NOTE | 2020-04-12 11:00 | PDOC.HOSPP ---
- Subjective Encounter Date: 04/12/20 Encounter Time: 07:30 Subjective: Patient seen and examined bedside today, patient was keeping his eye open but he was not talking, - Objective Vital Signs & Weight: Vital Signs (12 hours) Temp Pulse Resp Pulse Ox 04/12/20 08:00 98 04/12/20 07:27 99.1 F 04/12/20 04:39 99.4 F 04/12/20 00:27 98.9 F 04/12/20 00:24 97 04/12/20 00:23 103 H 18 99 04/11/20 23:57 100.1 F H 04/11/20 23:54 98.8 F Weight Admit Weight 136 lb Weight 136 lb Most Recent Monitor Data Heart Rate from ECG 79 NIBP 118/58 NIBP BP-Mean 78 Respiration from ECG 31 SpO2 96 I&O: 04/11/20 04/12/20 04/13/20 06:59 06:59 06:59 Intake Total 970 2200 Output Total 500 810 Balance 470 1390 Result Diagrams: 04/12/20 03:53 04/12/20 03:53 Radiology Reviewed by me: Yes EKG Reviewed by me: Yes Hospitalist ROS - Review of Systems ROS unobtainable: due to mental status - Medication Medications: Active Medications Generic Name Dose Route Start Last Admin Trade Name Freq PRN Reason Stop Dose Admin Acetaminophen 650 mg 04/10/20 17:38 04/11/20 23:57 Acetaminophen 650 Mg Suppository DE 650 mg Q4H PRN Administration Headache/Fever/Mild Pain (1-3) Albuterol/Ipratropium 3 ml 04/10/20 19:00 04/12/20 00:23 Ipratropium/Albuterol Sulfate 3 Ml Neb NEB 3 ml [id number] AILIN Administration Heparin Sodium (Porcine) 5,000 units 04/10/20 21:00 04/12/20 10:01 Heparin 5,000 Units/Ml Vial SC 5,000 units BID AILIN Administration Cefepime HCl 1 gm/ Sodium 100 mls @ 200 mls/hr 04/11/20 15:00 04/11/20 15:32 Chloride IVPB 100 mls Q24HR@1500 AILIN Administration Vancomycin HCl 1 gm/ Device 200 mls @ 200 mls/hr 04/11/20 16:00 04/11/20 16:50 IVPB 200 mls Q24HR@1600 AILIN Administration Dextrose/Water 1,000 mls @ 125 mls/hr 04/12/20 08:26 04/12/20 10:03 D5w IV 1,000 mls .Q8H AILIN Administration Potassium Chloride 20 meq/ 100 mls @ 50 mls/hr 04/12/20 09:15 04/12/20 10:03 Device IVPB 04/12/20 12:00 100 mls NOW AILIN Administration Pantoprazole Sodium 40 mg 04/11/20 09:00 04/12/20 10:03 Pantoprazole 40 Mg Vial IVP 40 mg DAILY AILIN Administration - Exam General Appearance: ill appearing Eye: PERRL, anicteric sclera ENT: normocephalic atraumatic, no oropharyngeal lesions, dry oral mucosa Neck: supple, symmetric, no JVD Heart: RRR, no murmur, no gallops, no rubs Respiratory: no wheezes, no rales, no ronchi Gastrointestinal: soft, non-tender, non-distended, normal bowel sounds Extremities: no cyanosis, no clubbing Skin: normal turgor Musculoskeletal: normal tone, generalized weakness, diffuse muscle atrophy Psychiatric: normal affect Hosp A/P (1) WYATT (acute kidney injury) Code(s): N17.9 - ACUTE KIDNEY FAILURE, UNSPECIFIED Status: Acute (2) Hypernatremia Code(s): E87.0 - HYPEROSMOLALITY AND HYPERNATREMIA Status: Acute (3) Rhabdomyolysis Code(s): M62.82 - RHABDOMYOLYSIS Status: Acute (4) Sacral decubitus ulcer Code(s): L89.159 - PRESSURE ULCER OF SACRAL REGION, UNSPECIFIED STAGE Status: Acute Qualifiers: Pressure injury stage: stage 3 Qualified Code(s): L89.153 - Pressure ulcer of sacral region, stage 3 (5) Toxic metabolic encephalopathy Code(s): G92 - TOXIC ENCEPHALOPATHY Status: Acute (6) Dehydration Code(s): E86.0 - DEHYDRATION Status: Acute (7) Dementia Code(s): F03.90 - UNSPECIFIED DEMENTIA WITHOUT BEHAVIORAL DISTURBANCE Status: Chronic (8) Lactic acidosis Code(s): E87.2 - ACIDOSIS Status: Acute (9) Sepsis Code(s): A41.9 - SEPSIS, UNSPECIFIED ORGANISM Status: Acute Qualifiers: Sepsis type: sepsis due to unspecified organism Sepsis acute organ dysfunction status: with acute organ dysfunction Severe sepsis acute organ dysfunction type: acute renal failure (10) Normocytic anemia Code(s): D64.9 - ANEMIA, UNSPECIFIED Status: Chronic - Plan old records reviewed/req, sharpe catheter Patient has bandemia, lactic acidosis and decubitus ulcer, sepsis is a high prio rity differential, patient is currently on cefepime and vancomycin Patient is on heparin and his platelet count is dropping so we will closely monitor that, if platelet continue to drop then will consider discontinuing heparin Patient will need evaluation by speech therapy for swallow, if patient is not able to swallow well then he may need discussion with the family about PEG tube option, palliative care on the case, Continue PT OT and wound care Continue IV fluid with dextrose with water as per nephrology Replace potassium His CSF is negative for any infection, will try to do MRI brain to rule out any acute stroke
[2020-04-12] MEDS ORDERED: Magnevist 469MG/ML 20 ML VIAL ONE (13:56)
--- NOTE | 2020-04-12 15:25 | MRI ---
MRI BRAIN WITH AND WITHOUT CONTRAST: DATE: 04/12/2020 HISTORY: 70-year-old male with altered mental status Awaiting reply from Dr. Akbar after page sent. COMPARISON: 04/01/2016 TECHNIQUE: Multiplanar, multisequence MRI of the brain performed pre- and post-IV injection of gadolinium based contrast agent. FINDINGS: There is a new finding of numerous multifocal separate gyriform strips and patches of signal abnormal ity (hyperintense on T2 WI and FLAIR), with focal expansion of the gyri, and restricted diffusion, in the following locations: Bilateral parasagittal frontal cortex, right longer than left. Bilateral insula and adjacent operculum. Right lateral parietal cortex. Small region in the right suprasylvian lateral frontal cortex. Small patchy lesion in left cerebellar hemisphere with mildly restricted diffusion. Additional brainstem lesions with abnormal signal but no restricted diffusion: This entire left hemicord at craniocervical junction at foramen magnum level. Right medullary pyramid There is no associated hemorrhage anywhere in the brain. No obstructive hydrocephalus, abnormal enhancement, subfalcine herniation/midline shift, or extra-axi al fluid collection. Basal cisterns are patent. No dural venous sinus thrombosis. IMPRESSION: 1) Multifocal acute or subacute infarctions in multiple vascular territories: Bilateral anterior cere bral artery and bilateral middle cerebral artery territories. This is suggestive of showering of emboli, perhaps from a cardiac source. 2) additional lesions in posterior fossa: Small left cerebellar lesion with weakly restricted diffusi on, and brainstem/spinal cord lesions without restricted diffusion.
[2020-04-12 15:28] LABS: Vancomycin, Trough 4.9 ug/mL
[2020-04-12] MEDS: Cefepime 1 GM in Sodium Chloride 0.9% 100 ML IVPB SCH (16:34)
[2020-04-12] MEDS ORDERED: Aspirin 300 MG Suppository PR SCH (17:15)
[2020-04-12] MEDS: Vancomycin 1.5 GRAM/300 ML BAG 1.5 GM in Premix Bag 1 BAG IVPB SCH (18:26)
--- NOTE | 2020-04-12 20:54 | ULT ---
CAROTID ULTRASOUND: 04/12/20 COMPARISON: 04/01/16. HISTORY: Stroke. TECHNIQUE: Multiplanar mccullough scale and color Doppler images were obtained in a carotid ultrasound. Spectral matteo sis of the Doppler waveforms were performed. FINDINGS: There is intimal thickening bilaterally. No significant calcified plaque is seen. The Doppler waveforms are normal bilaterally. Peak systolic velocity in the right ICA is 87 cm/s. Peak systolic velocity in the right CCA is 149 cm /s. The right ICA/CCA ratio is 0.6. Peak systolic velocity in the left ICA is 99 cm/s. Peak systolic velocity in the left CCA is 139 cm/s . The left ICA/CCA ratio is 0.7. Both vertebral arteries demonstrate antegrade flow without focal stenosis. IMPRESSION: No evidence of hemodynamically significant stenosis. POS: EAA
--- NOTE | 2020-04-13 00:16 | CON ---
DATE OF CONSULTATION: Jayce Del Rosario is a 70-year-old black male, assisted living, found down in the assisted living down for 2 days with a pressure decubitus, right buttock. Consult was written for me to see him three days ago, but I was not notified. I was notified today. The patient is in IMCU. He has had a brain MRI demonstrating multifocal acute to subacute infarctions, multiple vascular territories, showering of emboli. He is unresponsive though breathing spontaneously. I have been asked to debride and evaluate his right buttock decubitus. Consents have been obtained from family. Job ID: [id number]
--- NOTE | 2020-04-13 01:10 | CON ---
DATE OF CONSULTATION: 04/12/2020 REASON FOR CONSULTATION: Embolic stroke. PRIMARY ENLISTED AIRCREW/AERIAL OBSERVER/GUNNER: Dr. Armando Warner. HISTORY OF PRESENT ILLNESS: Mr. Del Rosario is a very pleasant 70-year-old gentleman. The patient had a history of previous episodes of syncope, but on this occasion was brought in after he was found to be unresponsive at home. Since he has been here, he has improved to some degree where he is opening his eyes, moving his feet some, but he feels markedly impaired as per the notes. The patient does have history of seeing a ball ender in [place], he was placed in a monitor, it looks like it is a LINQ monitor. The patient is unable to give any other history. ALLERGIES: TO PENICILLIN. REVIEW OF SYSTEMS: Not obtainable. is not able to verbally respond. PHYSICAL EXAMINATION: VITAL SIGNS: Blood pressure 116/64, pulse 70. GENERAL: Visually when spoken to, he looks at the interviewer. LUNGS: Clear. CARDIAC: Normal S1 and normal S2. Sometimes his heart rate is fast, actually little bit over 100. NECK: Neck veins are normal. Carotid normal upstrokes. LUNGS: Clear. CARDIAC: Normal S1 and S2. No murmur, rub, or gallop. ABDOMEN: Soft and nontender. EXTREMITIES: Warm and dry. No clubbing. No cyanosis or edema. PERTINENT FINDINGS: He has had an MRI which is like he has probably had multiple strokes in multiple distributions, probably cardioembolic. ASSESSMENT: Probable cardioembolic stroke. PLAN: 1. Interrogate the LINQ device. I have asked the nurse to do so. 2. He has undergone echocardiogram, which was unremarkable. Ejection fraction 60% to 65%. 3. Dr. Warner to see the patient tomorrow. Job ID: [id number]
[2020-04-13] MEDS: Dextrose 5% in Water 1,000 ML IV SCH ×3 (03:19→22:00)
[2020-04-13 04:47] LABS: CRP (Inflammatory) 29.71 mg/dL (= or < 0.5); Phosphorus 2.4 mg/dL (2.3-4.7)
[2020-04-13 04:50] LABS: ALT (SGPT) 31 U/L (8-55); AST (SGOT) 72 U/L (5-34); Albumin 2.5 g/dL (3.4-4.8); Alkaline Phosphatase 53 U/L (40-110); Anion Gap 13 mmol/L (10-20); BUN (Urea Nitrogen) 25 mg/dL (8.4-25.7); Bilirubin, Total 1.2 mg/dL (0.2-1.2); CK (CPK) 912 U/L (30-200); Calc. Creatinine Clearance 62 mL/min (70-130); Calcium 8.2 mg/dL (7.8-10.44); Carbon Dioxide 25 mmol/L (23-31); Cardiac Risk 3.6 (Less than 4.5); Chloride 113 mmol/L (98-107); Cholesterol 94 mg/dl (< 200 Desired); Globulin 3.1 g/dL (2.4-3.5); Glucose 123 mg/dL (83-110); HDL Cholesterol 26 mg/dL (>60 Neg Risk); LDL Cholesterol, Calculated 36 mg/dL; Magnesium 1.9 mg/dL (1.6-2.6); Potassium 3.6 mmol/L (3.5-5.1); Protein, Total 5.6 g/dL (5.8-8.1); Sodium 147 mmol/L (136-145); Triglycerides 159 mg/dL (Less than 150)
[2020-04-13 05:07] LABS: Band 14 % (5-11); Hemoglobin 9.9 g/dL (14.0-18.0); Lymphocytes 14 % (21-51); MDiff Complete? YES; Mean Corpuscular HGB CONC 31.6 g/dL (32.0-36.0); Mean Corpuscular Hemoglobin 28.9 pg (27.0-31.0); Mean Corpuscular Volume 91.5 fL (78.0-98.0); Monocytes 2 % (0-10); Neutrophil 70 % (42-75); Platelet Count 123 thou/uL (130-400); RBC Distribution Width 13.7 % (11.5-14.5); Red Blood Cell (RBC) Count 3.43 mill/uL (4.70-6.10)
[2020-04-13 07:14] LABS: CMV IgG AB Greater than 10.00 U/mL (0.00-0.59)
[2020-04-13] MEDS: Pantoprazole 40 MG VIAL IVP SCH (07:59)
[2020-04-13] MEDS: Aspirin 300 MG Suppository PR SCH (07:59)
[2020-04-13] MEDS: Heparin 5,000 UNITS/ML VIAL SC SCH ×2 (07:59→22:01)
--- NOTE | 2020-04-13 09:02 | PRG ---
DATE OF SERVICE: 04/13/2020 SERVICE: Renal Medicine. SUBJECTIVE: Mr. Del Rosario is a 70-year-old black male who was admitted for mental status change. We are following him up for his hypernatremia. He also was temporarily in acute kidney injury and volume depletion was given, which improved his renal function. His serum sodium is slowly improving with hypotonic IV solution. We have recently increased also his D5 water to 125 mL/hour. The patient is more awake now. OBJECTIVE: VITAL SIGNS: Blood pressure 105/60, heart rate 99, respiratory rate 31, O2 saturation 100%. GENERAL: The patient is awake, nonverbal, but can follow simple commands. SKIN: Adequate turgor. HEENT: Slightly pale conjunctivae. Anicteric sclerae. NECK: No neck mass. No carotid bruits. No JVD. CHEST: No deformities. LUNGS: Clear breath sounds. No wheezing. No crackles. HEART: Normal sinus rhythm. No murmur. No gallops. No rubs. ABDOMEN: Globular, soft, nontender. EXTREMITIES: No edema. No deformities. MEDICATIONS: Of April 13, 2020, reviewed. LABORATORY DATA: Of April 13, 2020; white count 9, hemoglobin 9.9. Sodium 147, potassium 3.6, chloride 113, carbon dioxide 25, BUN 25, creatinine 0.96, magnesium 1.9, and albumin 2.5. C-reactive protein is 29.71. ASSESSMENT AND PLAN: 1. Acute kidney injury - resolved secondary to hemodynamically-mediated renal dysfunction. 2. Hypernatremia, slowly improving. Continue current D5 water at 125 mL/hour. 3. Mental status change - much improved, most likely from metabolic encephalopathy. Please note this patient also has underlying dementia. Job ID: [id number]
--- NOTE | 2020-04-13 09:27 | PDOC.HOSPP ---
- Subjective Encounter Date: 04/13/20 Encounter Time: 07:00 Subjective: Patient seen and examined bedside today, patient is awake but he is not following any command, - Objective Vital Signs & Weight: Vital Signs (12 hours) Temp Pulse Resp Pulse Ox 04/13/20 07:43 98 04/13/20 07:37 97.9 F 04/13/20 06:56 83 31 H 100 04/13/20 04:48 99.0 F 04/13/20 00:37 99.8 F H 04/13/20 00:29 100 04/13/20 00:28 95 32 H 100 Weight Admit Weight 136 lb Weight 136 lb Most Recent Monitor Data Heart Rate from ECG 99 NIBP 105/60 NIBP BP-Mean 75 Respiration from ECG 31 SpO2 100 I&O: 04/12/20 04/13/20 04/14/20 06:59 06:59 06:59 Intake Total 2200 2350 Output Total 810 825 Balance 1390 1525 Result Diagrams: 04/13/20 03:49 04/13/20 03:49 Radiology Reviewed by me: Yes (MRI showed multifocal infarct) EKG Reviewed by me: Yes (Sinus rhythm) Hospitalist ROS - Review of Systems ROS unobtainable: due to mental status - Medication Medications: Active Medications Generic Name Dose Route Start Last Admin Trade Name Anandq PRN Reason Stop Dose Admin Acetaminophen 650 mg 04/10/20 17:38 04/11/20 23:57 Acetaminophen 650 Mg Suppository NE 650 mg Q4H PRN Administration Headache/Fever/Mild Pain (1-3) Albuterol/Ipratropium 3 ml 04/10/20 19:00 04/13/20 06:56 Ipratropium/Albuterol Sulfate 3 Ml Neb NEB 3 ml [id number] AILIN Administration Aspirin 300 mg 04/13/20 09:00 04/13/20 07:59 Aspirin 300 Mg Suppository NE 300 mg DAILY AILIN Administration Heparin Sodium (Porcine) 5,000 units 04/10/20 21:00 04/13/20 07:59 Heparin 5,000 Units/Ml Vial SC 5,000 units BID AILIN Administration Cefepime HCl 1 gm/ Sodium 100 mls @ 200 mls/hr 04/11/20 15:00 04/12/20 16:34 Chloride IVPB 100 mls Q24HR@1500 AILIN Administration Dextrose/Water 1,000 mls @ 125 mls/hr 04/12/20 08:26 04/13/20 07:59 D5w IV 1,000 mls .Q8H AILIN Administration Vancomycin HCl 1.5 gm/ Device 300 mls @ 200 mls/hr 04/12/20 17:00 04/12/20 18:26 IVPB 300 mls 1700 AILIN Administration Pantoprazole Sodium 40 mg 04/11/20 09:00 04/13/20 07:59 Pantoprazole 40 Mg Vial IVP 40 mg DAILY AILIN Administration Sodium Chloride 10 ml 04/12/20 21:00 04/13/20 07:59 Flush - Normal Saline 10 Ml Syringe IVF 10 ml Q12HR AILIN Administration - Exam General Appearance: NAD, ill appearing General - other findings: Awake, not following commands Eye: PERRL ENT: normocephalic atraumatic, no oropharyngeal lesions Neck: supple, symmetric, no JVD, no thyromegaly Heart: no murmur, no gallops, no rubs Respiratory: no wheezes, no rales, no ronchi Gastrointestinal: soft, non-tender, non-distended, normal bowel sounds Extremities: no clubbing, no edema Skin: normal turgor, no lesions Neurological - other findings: Unable to do neuro exam as patient is not following Musculoskeletal: normal tone Psychiatric: normal affect Hosp A/P (1) WYATT (acute kidney injury) Code(s): N17.9 - ACUTE KIDNEY FAILURE, UNSPECIFIED Status: Resolved Plan: Continue IV fluid as per nephrology order, nephrology following, (2) Hypernatremia Code(s): E87.0 - HYPEROSMOLALITY AND HYPERNATREMIA Status: Acute Plan: Improving, continue dextrose with water, will repeat labs tomorrow (3) Rhabdomyolysis Code(s): M62.82 - RHABDOMYOLYSIS Status: Acute Qualifiers: Rhabdomyolysis type: non-traumatic Qualified Code(s): M62.82 - Rhabdomyolysis Plan: Improving, continue IV fluid, will repeat total CK tomorrow, rhabdomyolysis most likely because of fall found on the floor for prolonged time (4) Sacral decubitus ulcer Code(s): L89.159 - PRESSURE ULCER OF SACRAL REGION, UNSPECIFIED STAGE Status: Acute Qualifiers: Pressure injury stage: stage 3 Qualified Code(s): L89.153 - Pressure ulcer of sacral region, stage 3 (5) Toxic metabolic encephalopathy Code(s): G92 - TOXIC ENCEPHALOPATHY Status: Acute (6) Dehydration Code(s): E86.0 - DEHYDRATION Status: Acute (7) Dementia Code(s): F03.90 - UNSPECIFIED DEMENTIA WITHOUT BEHAVIORAL DISTURBANCE Status: Chronic Qualifiers: Dementia type: Alzheimer's disease (8) Lactic acidosis Code(s): E87.2 - ACIDOSIS Status: Resolved (9) Sepsis Code(s): A41.9 - SEPSIS, UNSPECIFIED ORGANISM Status: Acute Qualifiers: Sepsis type: sepsis due to unspecified organism Sepsis acute organ dysfunction status: with acute organ dysfunction Severe sepsis acute organ dysfunction type: acute renal failure Plan: Patient is on empirically cefepime and vancomycin, culture negative so far (10) Normocytic anemia Code(s): D64.9 - ANEMIA, UNSPECIFIED Status: Chronic (11) Embolic stroke Code(s): I63.9 - CEREBRAL INFARCTION, UNSPECIFIED Status: Acute Plan: Neurology has been consulted, cardiology consulted for evaluation for transesophageal echocardiography, continue aspirin, continue to monitor telemetry, interrogation of Linq - Plan old records reviewed/req, sharpe catheter, continue antibiotics, 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
[2020-04-13] MEDS ORDERED: levETIRAcetam in NS 1,500 MG in Premix Bag 1 BAG IVPB SCH (12:45)
--- NOTE | 2020-04-13 13:39 | PDOC.EEG ---
Neurology EEG Report - Report Report: This EEG was performed using 24 channel [place] video digital EEG machine with 24 disc electrodes. This was an extended 2-hour 6 minutes of inpatient video EEG recording. Digital analysis of the EEG was done for Juanpablo and seizure detection which revealed abnormalities. Background: The posterior background rhythm was not observed. Hyperventilation: Not performed. Photic stimulation: Not performed. Sleep: No stage change was observed. EEG diagnosis: Occasional sharp waves seen emanating from the left frontotemporal region. F3, F7, T3, T5. Intermittent irregular theta activity seen throughout the recording. Absence of posterior background rhythm. Clinical interpretation: This EEG is consistent with interictal expression of partial epilepsy with potential epileptogenic city in the left frontotemporal region in the setting of moderate generalized nonspecific cerebral dysfunction.
--- NOTE | 2020-04-13 14:14 | CON ---
NEUROLOGY CONSULTATION DATE OF CONSULTATION: 04/13/2020 REASON FOR CONSULTATION: Stroke. HISTORY OF PRESENT ILLNESS: Mr. Jayce Del Rosario is a 70-year-old male with medical history significant for dementia, prior CVA, coronary artery disease, hypertension, dyslipidemia, presented to the hospital on 04/10/2020 after being found down for unknown amount of time with rhabdomyolysis, sacral decubitus ulcer on presentation and acute metabolic encephalopathy. The patient was found down at the [facility] for an unknown period of time. He was found with all urine all over him. Per family, they saw him on . On arrival to the emergency room, the patient had head CT done, which was negative for acute intracranial pathology. His serum sodium level was 162 and he was admitted for further evaluation. He has a LINQ monitor place at this time and sees a meat blender in [place]. Neurology was consulted because the MRI was performed yesterday because of acute mental status change, which showed multiple acute and subacute infarction in the multiple vascular territory. Carotid Dopplers were also performed, which did not reveal hemodynamically significant stenosis. REVIEW OF SYSTEMS: Unobtainable due to the patient's mental status. PAST MEDICAL HISTORY: Dementia, coronary artery disease, hypertension, dyslipidemia, syncope. PAST SURGICAL HISTORY: Right shoulder surgery, LINQ monitor place, cardiac catheterization in 2018. ALLERGIES: PENICILLIN. HOME MEDICATIONS: 1. Magnesium oxide. 2. Sertraline. 3. Donepezil. 4. K-Dur. 5. Vitamin B12. 6. Midodrine. PERSONAL HISTORY: Per records, he does not abuse drugs or alcohol. No history of smoking. He is a resident of [facility]. FAMILY HISTORY: Significant for hypertension and heart disease. Vital Signs & Weight: Vital Signs (12 hours) Temp Pulse Resp Pulse Ox 04/13/20 07:43 98 04/13/20 07:37 97.9 F 04/13/20 06:56 83 31 H 100 04/13/20 04:48 99.0 F 04/13/20 00:37 99.8 F H 04/13/20 00:29 100 04/13/20 00:28 95 32 H 100 Weight Admit Weight 136 lb Weight 136 lb Most Recent Monitor Data Heart Rate from ECG 99 NIBP 105/60 NIBP BP-Mean 75 Respiration from ECG 31 SpO2 100 I&O: 04/12/20 04/13/20 04/14/20 06:59 06:59 06:59 Intake Total 2200 2350 Output Total 810 825 Balance 1390 1525 Active Medications Generic Name Dose Route Start Last Admin Trade Name Freq PRN Reason Stop Dose Admin Acetaminophen 650 mg 04/10/20 17:38 04/11/20 23:57 Acetaminophen 650 Mg Suppository [place] 650 mg Q4H PRN Administration Headache/Fever/Mild Pain (1-3) Albuterol/Ipratropium 3 ml 04/10/20 19:00 04/13/20 06:56 Ipratropium/Albuterol Sulfate 3 Ml Neb NEB 3 ml [id number] AILIN Administration Aspirin 300 mg 04/13/20 09:00 04/13/20 07:59 Aspirin 300 Mg Suppository [place] 300 mg DAILY AILIN Administration Heparin Sodium (Porcine) 5,000 units 04/10/20 21:00 04/13/20 07:59 Heparin 5,000 Units/Ml Vial SC 5,000 units BID AILIN Administration Cefepime HCl 1 gm/ Sodium 100 mls @ 200 mls/hr 04/11/20 15:00 04/12/20 16:34 Chloride IVPB 100 mls Q24HR@1500 AILIN Administration Dextrose/Water 1,000 mls @ 125 mls/hr 04/12/20 08:26 04/13/20 07:59 D5w IV 1,000 mls .Q8H AILIN Administration Vancomycin HCl 1.5 gm/ Device 300 mls @ 200 mls/hr 04/12/20 17:00 04/12/20 18:26 IVPB 300 mls 1700 AILIN Administration Pantoprazole Sodium 40 mg 04/11/20 09:00 04/13/20 07:59 Pantoprazole 40 Mg Vial IVP 40 mg DAILY AILIN Administration Sodium Chloride 10 ml 04/12/20 21:00 04/13/20 07:59 Flush - Normal Saline 10 Ml Syringe IVF 10 ml Q12HR AILIN Administration PHYSICAL EXAMINATION: General Appearance: NAD, ill appearing Eye: PERRL ENT: normocephalic atraumatic, no oropharyngeal lesions Neck: supple, symmetric, no JVD, no thyromegaly Heart: no murmur, no gallops, no rubs Respiratory: no wheezes, no rales, no ronchi Gastrointestinal: soft, non-tender, non-distended, normal bowel sounds Extremities: no clubbing, no edema Skin: normal turgor, no lesions Neurological -Mental status, patient is extremely somnolent. He does not follow commands. He does not maintain eye contact. Cranial nerves, pupils 3 mm, round, and reactive to light. Face symmetric. Tongue midline. Corneals positive. Cough positive. Cerebellar, unable to perform secondary to mental status. Gait unable to perform secondary to mental status and patient's safety reasons. Sensory, minimal withdrawal of all 4 extremities to nailbed pressure. DATA REVIEWED: Radiology Reviewed by me: Yes (MRI showed multifocal infarct) EKG Reviewed by me: Yes (Sinus rhythm) ASSESSMENT AND PLAN: (1) Embolic stroke Code(s): I63.9 - CEREBRAL INFARCTION, UNSPECIFIED Status: Acute (2) Hypernatremia Code(s): E87.0 - HYPEROSMOLALITY AND HYPERNATREMIA Status: Acute (3) Rhabdomyolysis Code(s): M62.82 - RHABDOMYOLYSIS Status: Acute Qualifiers: Rhabdomyolysis type: non-traumatic Qualified Code(s): M62.82 - Rhabdomyolysis (4) Sacral decubitus ulcer Code(s): L89.159 - PRESSURE ULCER OF SACRAL REGION, UNSPECIFIED STAGE Status: Acute Qualifiers: Pressure injury stage: stage 3 Qualified Code(s): L89.153 - Pressure ulcer of sacral region, stage 3 (5) Toxic metabolic encephalopathy Code(s): G92 - TOXIC ENCEPHALOPATHY Status: Acute (6) Dehydration Code(s): E86.0 - DEHYDRATION Status: Acute (7) Dementia Code(s): F03.90 - UNSPECIFIED DEMENTIA WITHOUT BEHAVIORAL DISTURBANCE Status: Chronic Qualifiers: Dementia type: Alzheimer's disease (8) Lactic acidosis Code(s): E87.2 - ACIDOSIS Status: Resolved (9) Sepsis Code(s): A41.9 - SEPSIS, UNSPECIFIED ORGANISM Status: Acute Qualifiers: Sepsis type: sepsis due to unspecified organism Sepsis acute organ dysfunction status: with acute organ dysfunction Severe sepsis acute organ dysfunction type: acute renal failure (10) Normocytic anemia Code(s): D64.9 - ANEMIA, UNSPECIFIED Status: Chronic (11) WYATT (acute kidney injury) Code(s): N17.9 - ACUTE KIDNEY FAILURE, UNSPECIFIED Status: Resolved 70-year-old male presented with altered mental status. Altered mental status seems to be multifactorial secondary to metabolic and infectious etiology. MRI of the brain showed acute CVA and neurology was consulted for further management. Continue neurochecks every 4 hours.Patient was taking aspirin at home per records, so consider adding Plavix to the regimen . I reviewed the MRI of the brain, which showed multiple lacunar infarcts which are acute and subacute in multiple vascular territories indicating a cardioembolic source. 2D echocardiogram showed normal ejection fraction. No thrombus or PFO. Carotid Dopplers did not reveal hemodynamically significant stenosis. . Neuro checks every 4 hours. Continue n.p.o. until cleared by Speech. PT/OT/Speech. Telemetry to rule out arrhythmias. The patient has a LINQ recorder and Cardiology is on board for further evaluation. Continue start on high-intensity statin for secondary stroke prevention. Check hemoglobin A1c, fasting lipid panel, and TSH. EEG performed because of consistent somnolence, which showed evidence of partial epilepsy with potential epileptogenicity in the left frontotemporal region. Start load with Keppra 1500 mg IV now and then start on a maintenance dose of sertraline 50 IV q.12 hours. Observe seizure precautions. Ativan 2 mg IV for seizure greater than 2 minutes. Continue medical management per primary team. Deep venous thrombosis prophylaxis. We will continue to follow. Thank you for the consult. Job ID: [id number] MTDD
[2020-04-13] MEDS: Vancomycin 1.5 GRAM/300 ML BAG 1.5 GM in Premix Bag 1 BAG IVPB SCH (15:35)
[2020-04-13] MEDS: Cefepime 1 GM in Sodium Chloride 0.9% 100 ML IVPB SCH (15:35)
[2020-04-13 23:36] LABS: HSV-2 IgG Type Specific 4.49 index (0.00-0.90)
[2020-04-14] MEDS: Dextrose 5% in Water 1,000 ML IV SCH ×4 (01:00→22:55)
[2020-04-14 07:39] LABS: Anion Gap 18 mmol/L (10-20); BUN (Urea Nitrogen) 19 mg/dL (8.4-25.7); Calc. Creatinine Clearance 74 mL/min (70-130); Calcium 8.2 mg/dL (7.8-10.44); Carbon Dioxide 19 mmol/L (23-31); Chloride 109 mmol/L (98-107); Glucose 98 mg/dL (83-110); Potassium 4.5 mmol/L (3.5-5.1); Sodium 141 mmol/L (136-145)
[2020-04-14] MEDS: Aspirin 300 MG Suppository PR SCH (08:45)
[2020-04-14] MEDS: Heparin 5,000 UNITS/ML VIAL SC SCH ×2 (08:45→20:52)
[2020-04-14] MEDS: Pantoprazole 40 MG VIAL IVP SCH (08:46)
--- NOTE | 2020-04-14 12:53 | PRG ---
DATE OF SERVICE: 04/14/2020 SUBJECTIVE: Mr. Del Rosario is a 70-year-old black male who was admitted for mental status change and seen by the Renal Service for his acute kidney injury, which is resolved and acute hypernatremia. The hypernatremia with D5 water is now much improved. For that reason, we are decreasing his D5 water to 100 mL/hour. No new complaints today. Mentation is still fluctuating. No acute events noted last night. OBJECTIVE: VITAL SIGNS: Blood pressure 100/48, heart rate 69, respiratory rate 31, O2 saturation 98%, temperature 99.1. GENERAL: The patient is sleeping, minimally arousable, not in distress. SKIN: Adequate turgor. HEENT: Pinkish conjunctivae. Anicteric sclerae. NECK: No neck mass. No carotid bruits. No JVD. CHEST: No deformities. LUNGS: Clear breath sounds. No wheezing. No crackles. HEART: Normal sinus rhythm. No murmur. No gallops. No rubs. ABDOMEN: Globular, soft, nontender. No masses. EXTREMITIES: No edema. No deformities. MEDICATIONS: Medications of April 14, 2020, was reviewed. LABORATORY DATA: Laboratories of April 13, 2020; white count 9, hemoglobin 9.9. Sodium 141, potassium 4.5, chloride 109, carbon dioxide 19, BUN 19, creatinine 0.8. ASSESSMENT AND PLAN: 1. Hypernatremia - resolved, with the most recent sodium is 141. Decrease D5 water to 100 mL/hour. Due to the improved hypernatremia, we will be signing off. 2. Acute kidney injury, hemodynamically mediated renal dysfunction, resolved. Job ID: [id number] [facility]
[2020-04-14] MEDS: Cefepime 1 GM in Sodium Chloride 0.9% 100 ML IVPB SCH (14:45)
--- NOTE | 2020-04-14 15:13 | PDOC.HOSPP ---
- Subjective Encounter Date: 04/14/20 Encounter Time: 10:45 Subjective: Patient is not responding much. I talked to the nurse. His sodium is improved. He is getting D5 will reduce the rate. Talk to the RN. - Objective Vital Signs & Weight: Vital Signs (12 hours) Temp Pulse Resp Pulse Ox 04/14/20 13:58 86 28 H 98 04/14/20 11:20 99.1 F 04/14/20 08:00 99 04/14/20 07:35 98 04/14/20 07:34 83 26 H 98 04/14/20 07:07 99.6 F 04/14/20 04:19 97.6 F Weight Admit Weight 136 lb Weight 136 lb Most Recent Monitor Data Heart Rate from ECG 81 NIBP 96/53 NIBP BP-Mean 67 Respiration from ECG 32 SpO2 98 I&O: 04/13/20 04/14/20 04/15/20 06:59 06:59 06:59 Intake Total 2350 3002 Output Total 825 975 Balance 1525 7 Result Diagrams: 04/13/20 03:49 04/14/20 07:12 Hospitalist ROS - Medication Medications: Active Medications Generic Name Dose Route Start Last Admin Trade Name Freq PRN Reason Stop Dose Admin Acetaminophen 650 mg 04/10/20 17:38 04/11/20 23:57 Acetaminophen 650 Mg Suppository [place] 650 mg Q4H PRN Administration Headache/Fever/Mild Pain (1-3) Albuterol/Ipratropium 3 ml 04/10/20 19:00 04/14/20 13:58 Ipratropium/Albuterol Sulfate 3 Ml Neb NEB 3 ml [id number] AILIN Administration Aspirin 300 mg 04/13/20 09:00 04/14/20 08:45 Aspirin 300 Mg Suppository [place] 300 mg DAILY AILIN Administration Heparin Sodium (Porcine) 5,000 units 04/10/20 21:00 04/14/20 08:45 Heparin 5,000 Units/Ml Vial SC 5,000 units BID AILIN Administration Cefepime HCl 1 gm/ Sodium 100 mls @ 200 mls/hr 04/11/20 15:00 04/14/20 14:45 Chloride IVPB 100 mls Q24HR@1500 AILIN Administration Vancomycin HCl 1.5 gm/ Device 300 mls @ 200 mls/hr 04/12/20 17:00 04/13/20 15:35 IVPB 300 mls 1700 AILIN Administration Levetiracetam 750 mg/ Sodium 107.5 mls @ 215 mls/hr 04/13/20 21:00 04/14/20 08:46 Chloride IVPB 107.5 mls BID AILIN Administration Dextrose/Water 1,000 mls @ 100 mls/hr 04/14/20 11:56 04/14/20 12:00 D5w IV 1,000 mls .Q10H AILIN Administration Pantoprazole Sodium 40 mg 04/11/20 09:00 04/14/20 08:46 Pantoprazole 40 Mg Vial IVP 40 mg DAILY AILIN Administration Sodium Chloride 10 ml 04/12/20 21:00 04/14/20 08:47 Flush - Normal Saline 10 Ml Syringe IVF 10 ml Q12HR AILIN Administration - Exam General Appearance: ill appearing Eye: PERRL ENT: normocephalic atraumatic Neck: supple Heart: RRR Respiratory: CTAB, normal chest expansion Gastrointestinal: soft, normal bowel sounds Extremities: no edema Psychiatric: A&O x 3 Hosp A/P - Plan (1) WYATT (acute kidney injury) Code(s): N17.9 - ACUTE KIDNEY FAILURE, UNSPECIFIED Status: Resolved Plan: Continue IV fluid as per nephrology order, nephrology following, (2) Hypernatremia -He received D5 and the sodium improved. (3) Rhabdomyolysis Code(s): M62.82 - RHABDOMYOLYSIS Status: Acute Qualifiers: Rhabdomyolysis type: non-traumatic Qualified Code(s): M62.82 - Rhabdomyolysis Plan: Improving, continue IV fluid, will repeat total CK tomorrow, rhabdomyolysis most likely because of fall found on the floor for prolonged time CK trending down (4) Sacral decubitus ulcer, POA Gen sux consulted. (5) Toxic metabolic encephalopathy Multifactorial including embolic strokes and dehydration and electrolyte abnormalities. (6) Dehydration Code(s): E86.0 - DEHYDRATION Status: Acute (7) Dementia (8) Lactic acidosis Resolved (9) Sepsis Patient is on empirically cefepime and vancomycin, culture negative so far------> DC'd antibiotics on fifth (10) Normocytic anemia Code(s): D64.9 - ANEMIA, UNSPECIFIED Status: Chronic (11) Embolic stroke -MRI showed acute CVA multiple lacunar infarct with his acute and subacute in multiple vascular territories indicating cardioembolic source. Echo did not show any thrombus or PFO. Carotid Doppler without any significant stenosis. Electroencephalogram showed evidence of partial epilepsy with the potential epileptogenic city in the left frontotemporal region. - Keppra 500 twice daily Neurology following with us , cardiology consulted for evaluation for transesophageal echocardiography, -on aspirin, ,continue to monitor telemetry, interrogation of Linq Sh in the normal range LDL is 36. Renal signed off. Full code Daughter's contact- [phone]
[2020-04-14] MEDS: Atorvastatin Calcium 40 MG TAB PO SCH (20:52)
--- NOTE | 2020-04-15 07:22 | OP ---
DATE OF PROCEDURE: 04/12/2020 PREOPERATIVE DIAGNOSIS: Right buttock decubitus secondary to stroke and found down with rhabdomyolysis. POSTOPERATIVE DIAGNOSIS: Right buttock decubitus secondary to stroke and found down with rhabdomyolysis. PROCEDURES PERFORMED: Debridement of right buttock decubitus eschar, 13 cm x 4 cm wounds. DESCRIPTION OF PROCEDURE: With the patient at bedside, right buttock decubitus was prepared with alcohol and eschar was debrided sharply down to subcutaneous tissue. Skin and subcutaneous tissues excised. Dressings applied. Wound Care will be asked to see him regarding placement of a wound VAC. I will see him as needed and call Surgery, Dr. Bay covering for me over the weekend if further surgical evaluation is needed. Job ID: [id number]
[2020-04-15] MEDS: Heparin 5,000 UNITS/ML VIAL SC SCH ×2 (08:43→20:23)
[2020-04-15] MEDS: Aspirin 300 MG Suppository PR SCH (08:43)
[2020-04-15] MEDS: Pantoprazole 40 MG VIAL IVP SCH (08:45)
[2020-04-15] MEDS: Dextrose 5% in Water 1,000 ML IV SCH ×2 (08:45→17:44)
[2020-04-15 09:18] LABS: Anion Gap 15 mmol/L (10-20); BUN (Urea Nitrogen) 18 mg/dL (8.4-25.7); Calc. Creatinine Clearance 73 mL/min (70-130); Calcium 8.3 mg/dL (7.8-10.44); Carbon Dioxide 24 mmol/L (23-31); Chloride 105 mmol/L (98-107); Glucose 116 mg/dL (83-110); Potassium 3.9 mmol/L (3.5-5.1); Sodium 140 mmol/L (136-145)
[2020-04-15 12:36] LABS: West Nile Virus IgG Ab - CSF Positive (Negative); West Nile Virus IgM Ab - CSF Negative (Negative)
--- NOTE | 2020-04-15 13:12 | PDOC.HOSPP ---
- Subjective Encounter Date: 04/15/20 Encounter Time: 12:10 Subjective: She is not responding much for verbal stimulation. He is tracking me. He looks quite deconditioned and appears failure to thrive. Status post debridement of right buttocks decubitus ulcer 13 cm x 4 cm wound. - Objective Vital Signs & Weight: Vital Signs (12 hours) Temp Pulse Resp Pulse Ox 04/15/20 08:00 98 04/15/20 07:49 99 24 H 100 04/15/20 07:37 97.9 F 04/15/20 04:12 99.0 F Weight Admit Weight 136 lb Weight 136 lb Most Recent Monitor Data Heart Rate from ECG 110 NIBP 111/65 NIBP BP-Mean 80 Respiration from ECG 37 SpO2 95 I&O: 04/14/20 04/15/20 04/16/20 06:59 06:59 06:59 Intake Total 3002 2697 Output Total 975 1700 Balance 7 997 Result Diagrams: 04/13/20 03:49 04/15/20 08:53 Hospitalist ROS - Medication Medications: Active Medications Generic Name Dose Route Start Last Admin Trade Name Freq PRN Reason Stop Dose Admin Acetaminophen 650 mg 04/10/20 17:38 04/11/20 23:57 Acetaminophen 650 Mg Suppository [place] 650 mg Q4H PRN Administration Headache/Fever/Mild Pain (1-3) Albuterol/Ipratropium 3 ml 04/10/20 19:00 04/15/20 07:49 Ipratropium/Albuterol Sulfate 3 Ml Neb NEB 3 ml [id number] AILIN Administration Aspirin 300 mg 04/13/20 09:00 04/15/20 08:43 Aspirin 300 Mg Suppository UT 300 mg DAILY AILIN Administration Atorvastatin Calcium 40 mg 04/14/20 21:00 04/14/20 20:52 Atorvastatin Calcium 40 Mg Tab PO Not Given HS AILIN Heparin Sodium (Porcine) 5,000 units 04/10/20 21:00 04/15/20 08:43 Heparin 5,000 Units/Ml Vial SC 5,000 units BID AILIN Administration Levetiracetam 750 mg/ Sodium 107.5 mls @ 215 mls/hr 04/13/20 21:00 04/15/20 08:45 Chloride IVPB 107.5 mls BID AILIN Administration Dextrose/Water 1,000 mls @ 100 mls/hr 04/14/20 11:56 04/15/20 08:45 D5w IV 1,000 mls .Q10H AILIN Administration Pantoprazole Sodium 40 mg 04/11/20 09:00 04/15/20 08:45 Pantoprazole 40 Mg Vial IVP 40 mg DAILY AILIN Administration Sodium Chloride 10 ml 04/12/20 21:00 04/15/20 08:46 Flush - Normal Saline 10 Ml Syringe IVF 10 ml Q12HR AILIN Administration - Exam General Appearance: NAD, awake alert, ill appearing Eye: PERRL ENT: normocephalic atraumatic Neck: supple Heart: RRR Respiratory: CTAB, normal chest expansion Gastrointestinal: soft, normal bowel sounds Neurological: cranial nerve grossly intact Psychiatric: oriented to person, flat affect, somnolent Hosp A/P - Plan (1) WYATT (acute kidney injury) Code(s): N17.9 - ACUTE KIDNEY FAILURE, UNSPECIFIED Status: Resolved Plan: Continue IV fluid as per nephrology order, nephrology following, (2) Hypernatremia -He received D5 and the sodium improved. (3) Rhabdomyolysis Code(s): M62.82 - RHABDOMYOLYSIS Status: Acute Qualifiers: Rhabdomyolysis type: non-traumatic Qualified Code(s): M62.82 - Rhabdomyolysis Plan: Improving, continue IV fluid, will repeat total CK tomorrow, rhabdomyolysis most likely because of fall found on the floor for prolonged time CK trending down (4) Sacral decubitus ulcer, POA Gen sux consulted. (5) Toxic metabolic encephalopathy Multifactorial including embolic strokes and dehydration and electrolyte abnormalities. (6) Dehydration Code(s): E86.0 - DEHYDRATION Status: Acute (7) Dementia (8) Lactic acidosis Resolved (9) Sepsis Patient is on empirically cefepime and vancomycin, culture negative so far ------> DC'd antibiotics on fifth (10) Normocytic anemia Code(s): D64.9 - ANEMIA, UNSPECIFIED Status: Chronic (11) Embolic stroke -MRI showed acute CVA multiple lacunar infarct with his acute and subacute in multiple vascular territories indicating cardioembolic source. Echo did not show any thrombus or PFO. Carotid Doppler without any significant stenosis. Electroencephalogram showed evidence of partial epilepsy with the potential epileptogenic city in the left frontotemporal region. - Keppra 500 twice daily Neurology following with us , cardiology consulted for evaluation for transesophageal echocardiography, -on aspirin, ,continue to monitor telemetry, interrogation of Linq Status post debridement of right buttocks decubitus ulcer 13 cm x 4 cm wound. HLP in the normal range LDL is 36. Renal signed off. Full code Daughter's contact- [phone]
[2020-04-15] MEDS: Atorvastatin Calcium 40 MG TAB PO SCH (22:16)
[2020-04-16] MEDS: Dextrose 5% in Water 1,000 ML IV SCH (02:49)
[2020-04-16 04:25] LABS: Anion Gap 13 mmol/L (10-20); BUN (Urea Nitrogen) 20 mg/dL (8.4-25.7); Calc. Creatinine Clearance 73 mL/min (70-130); Carbon Dioxide 24 mmol/L (23-31); Chloride 102 mmol/L (98-107); Glucose 112 mg/dL (83-110); Potassium 4.1 mmol/L (3.5-5.1); Sodium 135 mmol/L (136-145)
[2020-04-16 06:24] LABS: Band 3 % (5-11); Hemoglobin 10.1 g/dL (14.0-18.0); Lymphocytes 8 % (21-51); MDiff Complete? YES; Mean Corpuscular HGB CONC 32.4 g/dL (32.0-36.0); Mean Corpuscular Hemoglobin 28.9 pg (27.0-31.0); Mean Corpuscular Volume 89.1 fL (78.0-98.0); Mean Platelet Volume 9.5 fL (7.4-10.4); Monocytes 6 % (0-10); Neutrophil 83 % (42-75); Platelet Count 262 thou/uL (130-400); Platelet Morphology Comment Appears Adequate; Polychromasia SLIGHT = 2-3 cells (100X) (0-2/hpf); RBC Distribution Width 13.2 % (11.5-14.5); Target Cells SLIGHT = 2-5 cells (100X) (0-1/hpf); White Blood Cell (WBC) Count 14.1 thou/uL (4.8-10.8)
[2020-04-16] MEDS: Heparin 5,000 UNITS/ML VIAL SC SCH ×2 (09:36→21:20)
[2020-04-16] MEDS: Aspirin 300 MG Suppository PR SCH (09:37)
[2020-04-16] MEDS: Pantoprazole 40 MG VIAL IVP SCH (09:38)
[2020-04-16] MEDS: Clopidogrel Bisulfate 75 MG TAB PO SCH (09:39)
[2020-04-16] MEDS ORDERED: Acyclovir Sodium 620 MG in Sodium Chloride 0.9% 100 ML IVPB SCH (13:00)
--- NOTE | 2020-04-16 13:01 | PDOC.NEUPN ---
- Subjective Encounter Date: 04/16/20 Subjective: Carin remains baseline confused but is more alert today and sitting up in bed. He does not follow commands - Objective Vital Signs & Weight: Vital Signs (12 hours) Temp Pulse Resp Pulse Ox 04/16/20 11:36 99.2 F 04/16/20 11:27 95 04/16/20 07:56 99.1 F 04/16/20 07:06 84 26 H 97 04/16/20 07:00 96 04/16/20 03:34 97.6 F Weight Admit Weight 136 lb Weight 136 lb Most Recent Monitor Data Heart Rate from ECG 85 NIBP 103/50 NIBP BP-Mean 67 Respiration from ECG 27 SpO2 98 I&O: 04/15/20 04/16/20 04/17/20 06:59 06:59 06:59 Intake Total 2697 2523 Output Total 1700 800 Balance 997 1723 Result Diagrams: 04/16/20 03:39 04/16/20 03:39 Radiology Reviewed by me: Yes EKG Reviewed by me: Yes ROS - Review of Systems ROS unobtainable: due to mental status - Medication Medications: Active Medications Generic Name Dose Route Start Last Admin Trade Name Freq PRN Reason Stop Dose Admin Acetaminophen 650 mg 04/10/20 17:38 04/11/20 23:57 Acetaminophen 650 Mg Suppository NM 650 mg Q4H PRN Administration Headache/Fever/Mild Pain (1-3) Albuterol/Ipratropium 3 ml 04/10/20 19:00 04/16/20 07:06 Ipratropium/Albuterol Sulfate 3 Ml Neb NEB 3 ml [id number] AILIN Administration Aspirin 300 mg 04/13/20 09:00 04/16/20 09:37 Aspirin 300 Mg Suppository NM 300 mg DAILY AILIN Administration Atorvastatin Calcium 40 mg 04/14/20 21:00 04/15/20 22:16 Atorvastatin Calcium 40 Mg Tab PO Not Given HS AILIN Clopidogrel Bisulfate 75 mg 04/16/20 09:00 04/16/20 09:39 Clopidogrel Bisulfate 75 Mg Tab PO Not Given DAILY AILIN Heparin Sodium (Porcine) 5,000 units 04/10/20 21:00 04/16/20 09:36 Heparin 5,000 Units/Ml Vial SC 5,000 units BID AILIN Administration Levetiracetam 750 mg/ Sodium 107.5 mls @ 215 mls/hr 04/13/20 21:00 04/16/20 10:43 Chloride IVPB 107.5 mls BID AILIN Administration Pantoprazole Sodium 40 mg 04/11/20 09:00 04/16/20 09:38 Pantoprazole 40 Mg Vial IVP 40 mg DAILY AILIN Administration Sodium Chloride 10 ml 04/12/20 21:00 04/16/20 09:39 Flush - Normal Saline 10 Ml Syringe IVF 10 ml Q12HR AILIN Administration - Exam General Appearance: NAD Eye: PERRL ENT: normocephalic atraumatic Neck: supple Respiratory: CTAB Cardiovascular: RRR Gastrointestinal: soft Extremities: no cyanosis Skin: normal turgor Neurological: no new deficit PSYCH: not oriented Results - Labs Result Diagrams: 04/16/20 03:39 04/16/20 03:39 Lab results: WBC 14.1 thou/uL (4.8-10.8) H 04/16/20 03:39 Hgb 10.1 g/dL (14.0-18.0) L 04/16/20 03:39 Hct 31.2 % (42.0-52.0) L 04/16/20 03:39 MCV 89.1 fL (78.0-98.0) 04/16/20 03:39 Plt Count 262 thou/uL (130-400) 04/16/20 03:39 Band Neuts % (Manual) 3 % (5-11) L 04/16/20 03:39 ABG pH 7.51 (7.35-7.45) H 04/10/20 16:10 ABG pCO2 29.2 mmHg (35.0-45.0) L 04/10/20 16:10 ABG pO2 54.9 mmHg (> 70.0) L* 04/10/20 16:10 Sodium 135 mmol/L (136-145) L 04/16/20 03:39 Potassium 4.1 mmol/L (3.5-5.1) 04/16/20 03:39 Chloride 102 mmol/L (98-107) 04/16/20 03:39 Carbon Dioxide 24 mmol/L (23-31) 04/16/20 03:39 BUN 20 mg/dL (8.4-25.7) 04/16/20 03:39 Creatinine 0.81 mg/dL (0.7-1.3) 04/16/20 03:39 Glucose 112 mg/dL (83-110) H 04/16/20 03:39 Lactic Acid 2.0 mmol/L (0.5-2.2) 04/13/20 03:49 Calcium 8.0 mg/dL (7.8-10.44) 04/16/20 03:39 Total Bilirubin 1.2 mg/dL (0.2-1.2) 04/13/20 03:49 AST 72 U/L (5-34) H 04/13/20 03:49 ALT 31 U/L (8-55) 04/13/20 03:49 Alkaline Phosphatase 53 U/L (40-110) 04/13/20 03:49 Ammonia 38 umol/L (18-72) 04/10/20 16:49 Creatine Kinase 912 U/L (30-200) H 04/13/20 03:49 CK-MB (CK-2) 16.6 ng/mL (0-6.6) H* 04/10/20 16:49 Troponin I 0.148 ng/mL (< 0.028) H 04/10/20 22:49 C-Reactive Protein 29.71 mg/dL (= or < 0.5) H 04/13/20 03:49 B-Natriuretic Peptide 38.9 pg/mL (0-100) 04/10/20 16:49 Serum Total Protein 5.6 g/dL (5.8-8.1) L 04/13/20 03:49 Albumin 2.5 g/dL (3.4-4.8) L 04/13/20 03:49 Lipase 51 U/L (8-78) 04/10/20 16:49 Urine Ketones 20 mg/dL (Negative) A 04/10/20 15:40 Urine Blood 3+ (Negative) A 04/10/20 15:40 Urine Nitrite Negative (Negative) 04/10/20 15:40 Ur Leukocyte Esterase Negative Rafael/uL (Negative) 04/10/20 15:40 Urine RBC 7-10 HPF (0-3) A 04/10/20 15:40 Urine WBC 0-3 HPF (0-3) 04/10/20 15:40 Ur Squamous Epith Cells 0-3 HPF (0-3) 04/10/20 15:40 Urine Bacteria Rare-Few HPF (None Seen) 04/10/20 15:40 - Radiology Interpretation MRI - head Additional Comment: MRI the brain consistent with acute tiny infarcts in multiple vascular distrib ution PN A/P (1) Embolic stroke Code(s): I63.9 - CEREBRAL INFARCTION, UNSPECIFIED Status: Acute (2) Hypernatremia Code(s): E87.0 - HYPEROSMOLALITY AND HYPERNATREMIA Status: Acute (3) Rhabdomyolysis Code(s): M62.82 - RHABDOMYOLYSIS Status: Acute Qualifiers: Rhabdomyolysis type: non-traumatic Qualified Code(s): M62.82 - Rha bdomyolysis (4) Sacral decubitus ulcer Code(s): L89.159 - PRESSURE ULCER OF SACRAL REGION, UNSPECIFIED STAGE Status: Acute Qualifiers: Pressure injury stage: stage 3 Qualified Code(s): L89.153 - Pressure ulcer of sacral region, stage 3 (5) Sepsis Code(s): A41.9 - SEPSIS, UNSPECIFIED ORGANISM Status: Acute Qualifiers: Sepsis type: sepsis due to unspecified organism Sepsis acute organ dysfunction status: with acute organ dysfunction Severe sepsis acute organ dysfunction type: acute renal failure (6) Toxic metabolic encephalopathy Code(s): G92 - TOXIC ENCEPHALOPATHY Status: Acute (7) WYATT (acute kidney injury) Code(s): N17.9 - ACUTE KIDNEY FAILURE, UNSPECIFIED Status: Resolved (8) Lactic acidosis Code(s): E87.2 - ACIDOSIS Status: Resolved (9) Dehydration Code(s): E86.0 - DEHYDRATION Status: Acute (10) Orthostatic hypotension Code(s): I95.1 - ORTHOSTATIC HYPOTENSION Status: Acute (11) Syncope Code(s): R55 - SYNCOPE AND COLLAPSE Status: Acute (12) TIA (transient ischemic attack) Status: Acute (13) Dementia Code(s): F03.90 - UNSPECIFIED DEMENTIA WITHOUT BEHAVIORAL DISTURBANCE Status: Chronic Qualifiers: Dementia type: Alzheimer's disease (14) Normocytic anemia Code(s): D64.9 - ANEMIA, UNSPECIFIED Status: Chronic - Plan Daily Plan: PT/OT, speech therapy, DVT proph w/SCDs Mr. Del Rosario is a 70-year-old male who presented with altered mental status. MRI of the brain consistent with acute infarction. MRI of the brain reviewed which was consistent with multiple tiny acute infarct in both cerebellar hemispheres and also cerebral hemispheres. EEG reviewed which was consistent with sharps emanating from the left temporal lobe. This was consistent with partial epilepsy. Continue Keppra 500 mg twice daily. Ativan 2 mg IV for seizure greater than 2 minutes. Neurochecks every 4 hours. Continue to observe seizure precautions. Continue aspirin, Plavix and high intensity statin for secondary stroke prevention. Plavix was added after discussion with cardiology since patient was already on aspirin but half-way records. Stroke seems cardioembolic. 2D echo is unremarkable. Cardiology is on board Patient has Linq recorder which has been interrogated by cardiology. Continue home medications. Strict control of blood pressure and blood glucose. Herpes PCR positive. ID is on board. Continue medical management per primary team and ID. PT/OT/speech Plan discussed with the nursing staff and also with the primary attending Dr. Feliciano
--- NOTE | 2020-04-16 14:44 | RAD ---
Modified barium swallow with speech therapist: 04/16/2020 HISTORY: 70-year-old male Dysphagia following cerebral infarctions I 69.391 FINDINGS: Tongue pumping. Edentulous. Delayed propulsion of bolus to posterior aspect of oral cavity. Premature free spillage into the vallecula and piriform sinuses with all consistencies. Delayed swallow initiation. Uncertain whether there was flash penetration into episodes of swallowing. No aspiration. Adequate epiglottic inversion. Some residue. IMPRESSION: 1.) Significant oral dysphagia 2) premature free spillage and delayed swallowing 3) no aspiration. Questionable flash penetration.
--- NOTE | 2020-04-16 17:31 | PDOC.HOSPP ---
- Subjective Encounter Date: 04/16/20 Encounter Time: 11:00 Subjective: F/u: encephalopathy The patient is sitting up in bed and answering questions. He denies headaches, nausea, vomiting, tingling or numbness in his face, lips, arms or legs. He denies history of cold sores. Denies any rashes on his body or genitals. He denies fever, shortness of breath, cough, abdominal pain - Objective Vital Signs & Weight: Vital Signs (12 hours) Temp Pulse Pulse Resp BP BP Pulse Ox 04/16/20 16:00 98 F 04/16/20 13:33 99 23 H 100 04/16/20 13:27 102 H 106/67 126/57 L 04/16/20 11:36 99.2 F 04/16/20 11:27 95 04/16/20 07:56 99.1 F 04/16/20 07:06 84 26 H 97 04/16/20 07:00 96 Pulse Ox Pulse Ox 04/16/20 16:00 04/16/20 13:33 04/16/20 13:27 100 100 04/16/20 11:36 04/16/20 11:27 04/16/20 07:56 04/16/20 07:06 04/16/20 07:00 Weight Admit Weight 136 lb Weight 136 lb Most Recent Monitor Data Heart Rate from ECG 101 NIBP 106/67 NIBP BP-Mean 80 Respiration from ECG 26 SpO2 100 I&O: 04/15/20 04/16/20 04/17/20 06:59 06:59 06:59 Intake Total 8957 2523 Output Total 1700 800 Balance 997 1723 Result Diagrams: 04/16/20 03:39 04/16/20 03:39 Hospitalist ROS - Review of Systems Constitutional: denies: fever, chills - Medication Medications: Active Medications Generic Name Dose Route Start Last Admin Trade Name Freq PRN Reason Stop Dose Admin Acetaminophen 650 mg 04/10/20 17:38 04/11/20 23:57 Acetaminophen 650 Mg Suppository [place] 650 mg Q4H PRN Administration Headache/Fever/Mild Pain (1-3) Albuterol/Ipratropium 3 ml 04/10/20 19:00 04/16/20 13:33 Ipratropium/Albuterol Sulfate 3 Ml Neb NEB 3 ml [id number] AILIN Administration Aspirin 300 mg 04/13/20 09:00 04/16/20 09:37 Aspirin 300 Mg Suppository PA 300 mg DAILY AILIN Administration Atorvastatin Calcium 40 mg 04/14/20 21:00 04/15/20 22:16 Atorvastatin Calcium 40 Mg Tab PO Not Given HS AILIN Clopidogrel Bisulfate 75 mg 04/16/20 09:00 04/16/20 09:39 Clopidogrel Bisulfate 75 Mg Tab PO Not Given DAILY AILIN Heparin Sodium (Porcine) 5,000 units 04/10/20 21:00 04/16/20 09:36 Heparin 5,000 Units/Ml Vial SC 5,000 units BID AILIN Administration Levetiracetam 750 mg/ Sodium 107.5 mls @ 215 mls/hr 04/13/20 21:00 04/16/20 10:43 Chloride IVPB 107.5 mls BID AILIN Administration Acyclovir Sodium 620 mg/ 112.4 mls @ 100 mls/hr 04/16/20 13:00 04/16/20 16:23 Sodium Chloride IVPB 112.4 mls 0500,1300,2100 AILIN Administration Pantoprazole Sodium 40 mg 04/11/20 09:00 04/16/20 09:38 Pantoprazole 40 Mg Vial IVP 40 mg DAILY AILIN Administration Sodium Chloride 10 ml 04/12/20 21:00 04/16/20 09:39 Flush - Normal Saline 10 Ml Syringe IVF 10 ml Q12HR AILIN Administration - Exam General Appearance: NAD, awake alert General - other findings: intermittently drowsy Eye: PERRL, anicteric sclera Eye - other findings: right eye sclera is red on medial aspect, denies pain ENT: normocephalic atraumatic, no oropharyngeal lesions Neck: supple, symmetric, no JVD Heart: RRR, no murmur, no gallops, no rubs Respiratory: CTAB, no wheezes, no rales, no ronchi Gastrointestinal: soft, non-tender, non-distended, normal bowel sounds, no palpable masses, no hepatomegaly Extremities: no cyanosis, no clubbing, no edema Skin: normal turgor, no lesions, no rashes Neurological: cranial nerve grossly intact, normal sensation to touch, no weakness, no focal deficits Musculoskeletal: normal tone, normal strength, no muscle wasting Psychiatric: normal affect, normal behavior, A&O x 3 Hosp A/P - Plan CT cervical spine: no acute fracture MRI brain: multifocal acute or subacute infarctions in multiple vascular territories including bilateral anterior cerebral and [employer] territories. Left cerebellar lesion with weakly restricted diffusion and brainstem/spinal cord lesions This is a 70 year old male who was found immobilized at home and barely responsi ve to painful stimuli and was found with urine all over him. He had rhabdomyolysis, was febrile and obtunded Acute encephalopathy possiby secondary to HSV encephalitis versus cardioembolic stroke vs [place] Virus vs seizures - assessment: patient had an LP which was positive for [place] Virus , HSV 1 and II IgG positive, but IGM negative, CMV positive. His MRI brain showed multifocal infarctions and cerebellar/brainstem and spinal cord lesions. EEG showed left frontotemporal lobe seizures - plan: continue aspirin, atorvastatin, plavix. No need for REGGIE for cardioembolic stroke per cardiology and neuro. Will add IV acyclovir due to concern for HSV meningitis/encephalitis given positive CSF findings, temporal lobe seizures, fever and WBC upon presentation Aspiration pneumonia - Chest Xray showed hazy opacities in right lung base. His respiratory rate is around 30. Will add clindamycin due to penicillin allergy, avoid levaquin due to seizures Seizures - neurology is following, continue keppra Dysphagia - speech consulted, patient aspirated with all textures. Will place GI consult for evaluation of PEG tube Dispo: will transfer to telemetry
[2020-04-16] MEDS: Clindamycin 150 MG CAP PO SCH (18:44)
[2020-04-16] MEDS: Atorvastatin Calcium 40 MG TAB PO SCH (21:19)
[2020-04-17] MEDS: Clindamycin 150 MG CAP PO SCH ×4 (00:37→20:21)
--- NOTE | 2020-04-17 00:49 | CON ---
DATE OF CONSULTATION: 04/16/2020 REASON FOR CONSULTATION: Evaluate CSF results regarding the possibility of herpes simplex infection. HISTORY OF PRESENT ILLNESS: A 70-year-old who was admitted 3 times to [facility]. The last one was in February 2019. He has a history of dementia, presumably stated as Alzheimer's, but I doubt most likely is vascular dementia. He had syncopal events and had extensive evaluation without any acute intracranial process identified. He was given midodrine for presumable orthostatic hypotension and had a loop recorder implanted, which did not show any dysrhythmia. A 2D echocardiogram showed preserved ejection fraction, so he was discharged on Lipitor, multivitamins, Risperdal, midodrine and Protonix. With that as a background, he presented on April 10 to the emergency room with history of having lost contact with his family for several days, so EMS was activated to the scene and they found him in bed unable to move about, soaked with urine and responsive only to painful stimuli, this was at [facility]. The blood pressure was 150/70, heart rate 91, respirations 28, O2 saturation 98 on 3 L of oxygen supplementation and a temperature of 100.9. The exam showed a stage II pressure ulceration in the presacral region and in the neuro examination is described as patient being uncooperative. I do not know what that exactly means in somebody who has altered mental state. Initial findings otherwise included a white cell count of 9.4, hemoglobin 13.9, platelets 153 with 23% bands. Sodium 147, creatinine 0.96, AST 72, ALT 31. CK was 912. CRP was 29.71, albumin 2.5. Urinalysis with 0 to 3 wbc's and a protein of 70. CSF tap was done and the fluid color was pink. There were 747 WBCs in tube #1 and 110 in tube #4. This was most likely an accidental puncture of the venous plexus. The total nucleated cells were 6 in tube #1 and 3 in tube #4. The glucose was 68 and protein 45, so it is very close to normal CSF findings except for the accidental puncture of the venous plexus around the subarachnoidal area that was inadvertently penetrated by the procedure. Microbiology data, we have 2 sets of blood cultures, no growth in 5 days and a spinal fluid culture has no growth as well. The patient had a negative [id number] x2 and some serologies were done, I do not know why HSV 1 and 2 IgGs were submitted. Those are not helpful and not anymore recommended for evaluation of this sort of presentation. CMV was ordered and evidently no actionable results for this sort of serologies. 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 The IgM was negative. The patient had a brain MRI done on April 12 and it showed multifocal acute/subacute infarctions in multiple vascular territories including the bilateral anterior cerebral artery and bilateral middle cerebral artery territories suggestive of showering of emboli likely from a cardiac source or the large vessel in the central chest such as aorta order. Additional lesions in posterior fossa include small left cerebellar lesion with restricted diffusion and brainstem cord lesions without restricted diffusion. Currently, Mr. Del Rosario is lying on his right lateral decubitus. He had obvious improvement in his alertness, but he was unable to provide a cogent history. He could not remember things. He did not know where he was. He stated that he was in [place]. The review of systems was very limited. He had a very difficult time with his appendicular structures, because of obvious paralysis and he had a hard time moving his ocular structures. He had very halting movements of the eyes and could not fully look around. He had a preference for the right side. PAST MEDICAL HISTORY: Includes likely vascular dementia, CVAs, coronary artery disease, hypertension, recurrent syncopal events, right shoulder surgery, loop monitor placed, which did not detect any evidence of arrhythmia. Cardiac catheterization in 2018 in [place]. MEDICATIONS: At home: 1. Magnesium. 2. Zoloft. 3. Donepezil. 4. Midodrine. 5. Vitamins. 6. Potassium. SOCIAL HISTORY: States that he never smoked, but this is very sketchy. He had been a resident at [facility]. FAMILY HISTORY: Hypertension and coronary artery disease. ALLERGIES: PENICILLIN. PHYSICAL EXAMINATION: There was this stage II presacral area of ulceration, it actually was non-stageable when he came, had a large oval eschar, but after debridement was quite superficial locally and probably developed from his clinical status change that led to him losing contact with family members in the assisted living facility. He has a peripheral IV access and a Myers catheter. He is kind of apathetic and he will reply to questions, but only monosyllabic terms and yes or no and very hard to obtain information from him. He has ocular movements again hard to test. There is no nystagmus, but he has weakness in the left side gaze. His pupils are about 2 mm and reactive. There is some element of conjunctival hyperemia. The oral cavity is dry and he has numerous missing teeth. NECK: Supple. There is no jugular vein distention. LUNGS: With symmetric air entry without obvious crackles or wheezing. HEART: S1, S2. Regular rate. No S3 or S4. ABDOMEN: Soft, not distended or tender. No ascites. No bladder distention. He is quadriparetic. The right side is spastic. The left side is completely flaccid, probably representing the latest the CVA. LABORATORY DATA: White cell count is 9.4, now it is up to 14, platelets are 262, which is improvement from recent values. Hemoglobin 10 with 82% neutrophils. He had 22% bands when he came in, had a creatinine of 0.81. I do not see HSV or DNA PCR ordered here. ASSESSMENT: 1. Multiple cerebrovascular accidents with vascular dementia and severe neurological impairment with multiple territories involved resulting in quadriparesis. The latest territory involved is going to be the left side with a flaccid hemiplegia. 2. The events are likely related to embolic phenomenon probably bland emboli from cardiac structures or vascular structures, infectious cause of septic emboli to the brain is not ruled out yet. The patient had an echocardiogram, which did not show any valvular abnormalities. The blood cultures are negative. His temperature has been intermittently high in the low-grade range to 100.4 and then changes in the cerebrospinal fluid, which brought up the possibility of herpes simplex infection. DISCUSSION: The clinical presentation and the radiological findings are not consistent with herpes simplex encephalitis or meningitis. The antibody results do not assist with the diagnosis of herpes simplex infections in the [facility] [place]. Those are typically made in the proper clinical situation using PCR looking for the DNA of the virus in the CSF sample submitted. I do not think that this was submitted and I do not think it needs to be submitted anyways. What the patient has is multiple CVAs of embolic nature. The possibility of an endocarditis is considered, not yet ruled out. May consider submitting Karius test to evaluate for culture negative endocarditis or perform a REGGIE to make sure he does not have a vegetation in his valves. I would go ahead and discontinue acyclovir at this point in time. Job ID: [id number]
[2020-04-17 04:19] LABS: Hemoglobin 10.4 g/dL (14.0-18.0); Mean Corpuscular HGB CONC 32.3 g/dL (32.0-36.0); Mean Corpuscular Hemoglobin 29.8 pg (27.0-31.0); Mean Corpuscular Volume 92.3 fL (78.0-98.0); Platelet Count 407 thou/uL (130-400); RBC Distribution Width 13.4 % (11.5-14.5); White Blood Cell (WBC) Count 12.5 thou/uL (4.8-10.8)
[2020-04-17] MEDS: Aspirin 300 MG Suppository PR SCH (08:37)
[2020-04-17] MEDS: Heparin 5,000 UNITS/ML VIAL SC SCH ×2 (08:37→21:00)
[2020-04-17] MEDS: Pantoprazole 40 MG VIAL IVP SCH (08:39)
[2020-04-17] MEDS: Clopidogrel Bisulfate 75 MG TAB PO SCH (08:41)
--- NOTE | 2020-04-17 12:46 | PDOC.EEG ---
Neurology EEG Report - Report Report: This EEG was performed using 24 channel Bushido video digital EEG machine with 24 disc electrodes. This was an extended 2-hour 9 minutes of inpatient video EEG recording. Digital analysis of the EEG was done for Juanpablo and seizure detection which revealed abnormalities. Background: The posterior background rhythm was not observed. Hyperventilation: Not performed. Photic stimulation: Not performed. Sleep: No stage change was observed. EEG diagnosis: Occasional sharp waves seen emanating from the left frontotemporal region. ( F3, F7, T3, T5.) Intermittent irregular theta activity seen throughout the recording. Absence of posterior background rhythm. Clinical interpretation: This EEG is consistent with interictal expression of partial epilepsy with potential epileptogenic city in the left frontotemporal region in the setting of moderate generalized nonspecific cerebral dysfunction. There is no interval change since the prior study. No electrographic seizures seen during the recording.
--- NOTE | 2020-04-17 13:06 | PDOC.NEUPN ---
- Subjective Encounter Date: 04/17/20 Subjective: Carin is more awake today. He is oriented to himself and place. - Objective Vital Signs & Weight: Vital Signs (12 hours) Temp Pulse Resp Pulse Ox 04/17/20 11:00 99.2 F 04/17/20 08:19 100 04/17/20 08:18 99 28 H 100 04/17/20 07:31 98.4 F 04/17/20 03:00 98.2 F Weight Admit Weight 136 lb Weight 136 lb Most Recent Monitor Data Heart Rate from ECG 109 NIBP 85/51 NIBP BP-Mean 62 Respiration from ECG 39 SpO2 100 I&O: 04/16/20 04/17/20 04/18/20 06:59 06:59 06:59 Intake Total 2523 218 Output Total 800 650 Balance 1723 432 Result Diagrams: 04/17/20 03:54 04/16/20 03:39 Radiology Reviewed by me: Yes EKG Reviewed by me: Yes ROS - Review of Systems Eyes: denies: pain, vision change, conjunctivae inflammation, eyelid inflammation, redness, other ENT: denies: ear pain, ear discharge, nose pain, nose discharge, nose congestion, mouth pain, mouth swelling, throat pain, throat swelling, other Gastrointestinal: denies: nausea, vomiting, abdominal pain, diarrhea, constipation, melena, hematochezia, other - Medication Medications: Active Medications Generic Name Dose Route Start Last Admin Trade Name Freq PRN Reason Stop Dose Admin Acetaminophen 650 mg 04/10/20 17:38 04/11/20 23:57 Acetaminophen 650 Mg Suppository IL 650 mg Q4H PRN Administration Headache/Fever/Mild Pain (1-3) Albuterol/Ipratropium 3 ml 04/10/20 19:00 04/17/20 08:18 Ipratropium/Albuterol Sulfate 3 Ml Neb NEB 3 ml [id number] AILIN Administration Aspirin 300 mg 04/13/20 09:00 04/17/20 08:37 Aspirin 300 Mg Suppository IL 300 mg DAILY AILIN Administration Atorvastatin Calcium 40 mg 04/14/20 21:00 04/16/20 21:19 Atorvastatin Calcium 40 Mg Tab PO Not Given HS AILIN Clindamycin HCl 300 mg 04/16/20 18:00 04/17/20 05:50 Clindamycin 150 Mg Cap PO Not Given Q6HR [facility] Clopidogrel Bisulfate 75 mg 04/16/20 09:00 04/17/20 08:41 Clopidogrel Bisulfate 75 Mg Tab PO Not Given DAILY [facility] Heparin Sodium (Porcine) 5,000 units 04/10/20 21:00 04/17/20 08:37 Heparin 5,000 Units/Ml Vial SC 5,000 units BID AILIN Administration Levetiracetam 750 mg/ Sodium 107.5 mls @ 215 mls/hr 04/13/20 21:00 04/17/20 08:41 Chloride IVPB 107.5 mls BID AILIN Administration Pantoprazole Sodium 40 mg 04/11/20 09:00 04/17/20 08:39 Pantoprazole 40 Mg Vial IVP 40 mg DAILY AILIN Administration Sodium Chloride 10 ml 04/12/20 21:00 04/17/20 08:40 Flush - Normal Saline 10 Ml Syringe IVF 10 ml Q12HR AILIN Administration - Exam General Appearance: awake alert Eye: PERRL ENT: normocephalic atraumatic Neck: supple Respiratory: CTAB Cardiovascular: RRR Gastrointestinal: soft Extremities: no cyanosis, no clubbing Skin: normal turgor Neurological: no new deficit Musculoskeletal: normal tone, no muscle wasting PSYCH: normal affect, normal behavior, oriented to person, oriented to place Results - Labs Result Diagrams: 04/17/20 03:54 04/16/20 03:39 Lab results: WBC 12.5 thou/uL (4.8-10.8) H 04/17/20 03:54 Hgb 10.4 g/dL (14.0-18.0) L 04/17/20 03:54 Hct 32.3 % (42.0-52.0) L 04/17/20 03:54 MCV 92.3 fL (78.0-98.0) 04/17/20 03:54 Plt Count 407 thou/uL (130-400) H 04/17/20 03:54 Band Neuts % (Manual) 3 % (5-11) L 04/16/20 03:39 ABG pH 7.51 (7.35-7.45) H 04/10/20 16:10 ABG pCO2 29.2 mmHg (35.0-45.0) L 04/10/20 16:10 ABG pO2 54.9 mmHg (> 70.0) L* 04/10/20 16:10 Sodium 135 mmol/L (136-145) L 04/16/20 03:39 Potassium 4.1 mmol/L (3.5-5.1) 04/16/20 03:39 Chloride 102 mmol/L (98-107) 04/16/20 03:39 Carbon Dioxide 24 mmol/L (23-31) 04/16/20 03:39 BUN 20 mg/dL (8.4-25.7) 04/16/20 03:39 Creatinine 0.81 mg/dL (0.7-1.3) 04/16/20 03:39 Glucose 112 mg/dL (83-110) H 04/16/20 03:39 Lactic Acid 2.0 mmol/L (0.5-2.2) 04/13/20 03:49 Calcium 8.0 mg/dL (7.8-10.44) 04/16/20 03:39 Total Bilirubin 1.2 mg/dL (0.2-1.2) 04/13/20 03:49 AST 72 U/L (5-34) H 04/13/20 03:49 ALT 31 U/L (8-55) 04/13/20 03:49 Alkaline Phosphatase 53 U/L (40-110) 04/13/20 03:49 Ammonia 38 umol/L (18-72) 04/10/20 16:49 Creatine Kinase 912 U/L (30-200) H 04/13/20 03:49 CK-MB (CK-2) 16.6 ng/mL (0-6.6) H* 04/10/20 16:49 Troponin I 0.148 ng/mL (< 0.028) H 04/10/20 22:49 C-Reactive Protein 29.71 mg/dL (= or < 0.5) H 04/13/20 03:49 B-Natriuretic Peptide 38.9 pg/mL (0-100) 04/10/20 16:49 Serum Total Protein 5.6 g/dL (5.8-8.1) L 04/13/20 03:49 Albumin 2.5 g/dL (3.4-4.8) L 04/13/20 03:49 Lipase 51 U/L (8-78) 04/10/20 16:49 Urine Ketones 20 mg/dL (Negative) A 04/10/20 15:40 Urine Blood 3+ (Negative) A 04/10/20 15:40 Urine Nitrite Negative (Negative) 04/10/20 15:40 Ur Leukocyte Esterase Negative Rafael/uL (Negative) 04/10/20 15:40 Urine RBC 7-10 HPF (0-3) A 04/10/20 15:40 Urine WBC 0-3 HPF (0-3) 04/10/20 15:40 Ur Squamous Epith Cells 0-3 HPF (0-3) 04/10/20 15:40 Urine Bacteria Rare-Few HPF (None Seen) 04/10/20 15:40 - Radiology Interpretation MRI - head Additional Comment: MRI of the brain was consistent with multiple and tiny acute infarctions in different vascular territories PN A/P (1) Embolic stroke Code(s): I63.9 - CEREBRAL INFARCTION, UNSPECIFIED Status: Acute (2) Hypernatremia Code(s): E87.0 - HYPEROSMOLALITY AND HYPERNATREMIA Status: Acute (3) Rhabdomyolysis Code(s): M62.82 - RHABDOMYOLYSIS Status: Acute Qualifiers: Rhabdomyolysis type: non-traumatic Qualified Code(s): M62.82 - Rhabdomyolysis (4) Sacral decubitus ulcer Code(s): L89.159 - PRESSURE ULCER OF SACRAL REGION, UNSPECIFIED STAGE Status: Acute Qualifiers: Pressure injury stage: stage 3 Qualified Code(s): L89.153 - Pressure ulcer of sacral region, stage 3 (5) Sepsis Code(s): A41.9 - SEPSIS, UNSPECIFIED ORGANISM Status: Acute Qualifiers: Sepsis type: sepsis due to unspecified organism Sepsis acute organ dysfunction status: with acute organ dysfunction Severe sepsis acute organ dysfunction type: acute renal failure (6) Toxic metabolic encephalopathy Code(s): G92 - TOXIC ENCEPHALOPATHY Status: Acute (7) WYATT (acute kidney injury) Code(s): N17.9 - ACUTE KIDNEY FAILURE, UNSPECIFIED Status: Resolved (8) Lactic acidosis Code(s): E87.2 - ACIDOSIS Status: Resolved (9) Dehydration Code(s): E86.0 - DEHYDRATION Status: Acute (10) Orthostatic hypotension Code(s): I95.1 - ORTHOSTATIC HYPOTENSION Status: Acute (11) Syncope Code(s): R55 - SYNCOPE AND COLLAPSE Status: Acute (12) TIA (transient ischemic attack) Status: Acute (13) Dementia Code(s): F03.90 - UNSPECIFIED DEMENTIA WITHOUT BEHAVIORAL DISTURBANCE Status: Chronic Qualifiers: Dementia type: Alzheimer's disease (14) Normocytic anemia Code(s): D64.9 - ANEMIA, UNSPECIFIED Status: Chronic - Plan Daily Plan: PT/OT, speech therapy, DVT proph w/SCDs Mr. Del Rosario is a 70-year-old male who presented with altered mental status. MRI of the brain consistent with acute infarction which seems cardioembolic since multiple vascular territories were involved. MRI of the brain reviewed which was consistent with multiple tiny acute infarct in both cerebellar hemispheres and also cerebral hemispheres. EEG reviewed which was consistent with sharps emanating from the left temporal lobe. 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 EEG was repeated because of concern about herpes since herpes e ncephalitis has predilection for temporal lobe seizures. Continue Keppra 500 mg twice daily. Ativan 2 mg IV for seizure greater than 2 minutes. Neurochecks every 4 hours. Continue to observe seizure precautions. Continue aspirin, Plavix and high intensity statin for secondary stroke prevention. Plavix was added after discussion with cardiology since patient was already on aspirin but care home records. Stroke seems cardioembolic. 2D echo is unremarkable. Cardiology is on board Patient has Linq recorder which has been interrogated by cardiology. Continue home medications. Strict control of blood pressure and blood glucose. Herpes PCR positive. ID is on board. Continue medical management per primary team and ID. PT/OT/speech Plan discussed with the nursing staff
--- NOTE | 2020-04-17 16:15 | PDOC.HOSPP ---
- Subjective Encounter Date: 04/17/20 Encounter Time: 09:00 Subjective: F/u: encephalopathy The patient is up in bed. He is not answering questions, dozes off frequently. His family has agreed to PEG placement. He failed barium swallow yesterday - Objective Vital Signs & Weight: Vital Signs (12 hours) Temp Pulse Pulse Pulse Pulse Resp BP 04/17/20 15:50 99.4 F 04/17/20 14:20 113 H 20 04/17/20 11:59 116 H 104 H 104 H 104/71 04/17/20 11:00 99.2 F 04/17/20 08:19 04/17/20 08:18 99 28 H 04/17/20 07:31 98.4 F BP BP Pulse Ox Pulse Ox Pulse Ox 04/17/20 15:50 04/17/20 14:20 100 04/17/20 11:59 92/57 L 92/67 100 100 04/17/20 11:00 04/17/20 08:19 100 04/17/20 08:18 100 04/17/20 07:31 Weight Admit Weight 136 lb Weight 136 lb Most Recent Monitor Data Heart Rate from ECG 105 NIBP 92/67 NIBP BP-Mean 75 Respiration from ECG 19 SpO2 100 I&O: 04/16/20 04/17/20 04/18/20 06:59 06:59 06:59 Intake Total 2523 218 Output Total 800 650 250 Balance 1723 -432 -250 Result Diagrams: 04/17/20 03:54 04/16/20 03:39 Hospitalist ROS - Review of Systems Constitutional: denies: fever, chills - Medication Medications: Active Medications Generic Name Dose Route Start Last Admin Trade Name Freq PRN Reason Stop Dose Admin Acetaminophen 650 mg 04/10/20 17:38 04/11/20 23:57 Acetaminophen 650 Mg Suppository IN 650 mg Q4H PRN Administration Headache/Fever/Mild Pain (1-3) Albuterol/Ipratropium 3 ml 04/10/20 19:00 04/17/20 14:20 Ipratropium/Albuterol Sulfate 3 Ml Neb NEB 3 ml [id number] AILIN Administration Aspirin 300 mg 04/13/20 09:00 04/17/20 08:37 Aspirin 300 Mg Suppository IN 300 mg DAILY AILIN Administration Atorvastatin Calcium 40 mg 04/14/20 21:00 04/16/20 21:19 Atorvastatin Calcium 40 Mg Tab PO Not Given HS AILIN Clindamycin HCl 300 mg 04/16/20 18:00 04/17/20 14:39 Clindamycin 150 Mg Cap PO Not Given Q6HR AILIN Clopidogrel Bisulfate 75 mg 04/16/20 09:00 04/17/20 08:41 Clopidogrel Bisulfate 75 Mg Tab PO Not Given DAILY AILIN Heparin Sodium (Porcine) 5,000 units 04/10/20 21:00 04/17/20 08:37 Heparin 5,000 Units/Ml Vial SC 5,000 units BID AILIN Administration Levetiracetam 750 mg/ Sodium 107.5 mls @ 215 mls/hr 04/13/20 21:00 04/17/20 08:41 Chloride IVPB 107.5 mls BID AILIN Administration Sodium Chloride 10 ml 04/12/20 21:00 04/17/20 08:40 Flush - Normal Saline 10 Ml Syringe IVF 10 ml Q12HR AILIN Administration - Exam General Appearance: NAD, awake alert Eye: PERRL, anicteric sclera ENT: normocephalic atraumatic, no oropharyngeal lesions Neck: no JVD Heart: RRR, no murmur, no gallops, no rubs Respiratory: CTAB, no wheezes, no rales, no ronchi Gastrointestinal: soft, non-tender, non-distended, normal bowel sounds Extremities: no cyanosis, no clubbing, no edema Skin: normal turgor, no lesions, no rashes Neurological: cranial nerve grossly intact, normal sensation to touch, no weakness Hosp A/P - Plan CT cervical spine: no acute fracture MRI brain: multifocal acute or subacute infarctions in multiple vascular territories including bilateral anterior cerebral and 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 Left cerebellar lesion with weakly restricted diffusion and brainstem/spinal cord lesions This is a 70 year old male who was found immobilized at home and barely responsive to painful stimuli and was found with urine all over him. He had rhabdomyolysis, was febrile and obtunded Acute encephalopathy possiby secondary to HSV encephalitis versus cardioembolic stroke vs [place] Virus vs seizures - patient had an LP which was positive for West Nile Virus , HSV 1 and II IgG positive, but IGM negative, CMV positive. His MRI brain showed multifocal infarctions and cerebellar/brainstem and spinal cord lesions. EEG showed left frontotemporal lobe seizures - continue aspirin/plavix, statin. ID was consulted, did not feel he needs acyclovir Aspiration pneumonia - Chest Xray showed hazy opacities in right lung base. His respiratory rate is around 30. - continue clindamycin Seizures - neurology is following, continue keppra Dysphagia - speech consulted, patient failed modified barium swallow. GI consulted for PEG placement - will order [id number] for now Dispo: will transfer to telemetry
[2020-04-17] MEDS: Dextrose 5 % And 0.9 % NaCl 1,000 ML IV SCH (16:52)
--- NOTE | 2020-04-17 20:00 | CON ---
DATE OF CONSULTATION: 04/17/2020 REQUESTING PHYSICIAN: Dr. John. REASON FOR CONSULTATION: Consider PEG tube placement. HISTORY OF PRESENT ILLNESS: Jayce Del Rosario is an unfortunate 70-year-old gentleman who was admitted to the hospital a week ago after having been found down with rhabdomyolysis and altered mental status. He has been found to have multiple embolic CVAs and progressive vascular dementia. He has a decubitus ulcer, which has been debrided. He has been found to have aspiration pneumonia and is being treated with antibiotics. Speech Pathology evaluation over the past couple of days has demonstrated significant aspiration with multiple consistencies and he has been made n.p.o. status. The patient's daughter and medical power of deputy commonwealth's attorney has decided to proceed with PEG tube placement if possible. We are consulted for this purpose. The patient himself is not able to communicate any symptoms to me. His abdomen is not tender to palpation. REVIEW OF SYSTEMS: Unable to obtain due to the patient's altered mental status. PAST MEDICAL HISTORY: Vascular dementia; recurrent CVAs, embolic; coronary artery disease; hypertension; right shoulder surgery; cardiac catheterization in 2018; gastritis, mild, seen in 2017 EGD; normal colonoscopy in 2017. SOCIAL HISTORY: The patient is a resident of [facility]. No known tobacco or alcohol use. FAMILY HISTORY: Hypertension and coronary artery disease. ALLERGIES: PENICILLIN. INPATIENT MEDICATIONS: 1. DuoNebs. 2. Aspirin. 3. Lipitor. 4. Plavix. 5. Clindamycin. 6. Keppra. 7. Pantoprazole 40 mg daily. PHYSICAL EXAMINATION: VITAL SIGNS: Temperature 99.2, pulse 113, blood pressure 92/67, and 100% oxygen saturation on room air. GENERAL: No acute distress, sitting up in bed comfortably, noncommunicative. SKIN: No jaundice. No rash. No surgical scars to the anterior abdomen. He does have decubitus ulcers to the buttocks, which I did not personally examine today. EYES: No scleral icterus. Extraocular movements intact. ENT: Mucous membranes are moist. LYMPH: No submandibular or supraclavicular lymphadenopathy. THYROID: Nontender to palpation. HEART: Regular rate and rhythm. LUNGS: Clear to auscultation bilaterally. ABDOMEN: Flat. Bowel sounds are present. Some mild tenderness to palpation in the epigastrium, but no guarding or rebound tenderness. No surgical scars to the anterior abdomen. EXTREMITIES: No peripheral edema. LABORATORY STUDIES: WBC 12.5, hemoglobin 10.4, platelets 407. Sodium 135, potassium 4.1, BUN 20, creatinine 0.81. COVID PCR is negative. IMAGING STUDIES: Modified barium swallow from yesterday showed a significant oral dysphagia. ASSESSMENT AND PLAN: 1. Oropharyngeal dysphagia. 2. Aspiration pneumonia. 3. Recurrent cerebrovascular accidents, likely embolic. I discussed the case with Dr. John as well as the patient's daughter and medical power of deputy commonwealth's attorney, Poli over the phone. The patient is certainly a good candidate for PEG tube placement and we can plan for this tomorrow. I discussed the risks and potential benefits of PEG tube placement and they desired to proceed. Dr. Smith will be performing GI cases for us tomorrow, so we will discuss the case with him. Thank you for the consultation. Please call anytime with questions or concerns. Job ID: [id number]
[2020-04-17] MEDS: Atorvastatin Calcium 40 MG TAB PO SCH (21:00)
[2020-04-17] MEDS: Clindamycin/D5W 600 MG in Premix Bag 1 BAG IVPB SCH (22:07)
[2020-04-17] MEDS ORDERED: Clindamycin/D5W 600 MG in Premix Bag 1 BAG IVPB SCH (23:59)
[2020-04-18] MEDS: Clindamycin/D5W 600 MG in Premix Bag 1 BAG IVPB SCH ×4 (04:31→21:04)
[2020-04-18] MEDS: Dextrose 5 % And 0.9 % NaCl 1,000 ML IV SCH ×3 (04:32→22:22)
[2020-04-18] MEDS ORDERED: PROPOFOL 200 MG/20 ML VIAL ONE (09:32)
[2020-04-18] MEDS ORDERED: Lidocaine 1% PF 5 ML VIAL ONE (09:32)
[2020-04-18] MEDS: Aspirin 300 MG Suppository PR SCH (09:55)
[2020-04-18] MEDS: Pantoprazole 40 MG GRANULES PACKET PO SCH (10:01)
[2020-04-18] MEDS: Clopidogrel Bisulfate 75 MG TAB PO SCH (10:01)
[2020-04-18] MEDS: Heparin 5,000 UNITS/ML VIAL SC SCH ×2 (10:09→21:04)
[2020-04-18 11:00] LABS: Chloride 111 mmol/L (98-107); Potassium 3.5 mmol/L (3.5-5.1); Sodium 146 mmol/L (136-145)
--- NOTE | 2020-04-18 11:37 | PDOC.HOSPP ---
- Subjective Encounter Date: 04/18/20 Encounter Time: 11:44 Subjective: Mr. Del Rosario is stable today. He denies any pain or other complaints. Reports having a bowel movement yesterday. He is still somewhat confused, and does not seem to be a reliable historian. He states that he wants us to call his daughter to get money from his bank. When I asked where he thought he was, he said his apartment. He did not know the month or the year He will get a PEG tube placed today. - Objective Vital Signs & Weight: Vital Signs (12 hours) Temp Pulse Resp BP Pulse Ox 04/18/20 07:34 97.6 F 90 18 109/59 L 94 L 04/18/20 06:56 94 L 04/18/20 06:53 94 16 94 L 04/18/20 03:29 98.1 F 102 H 20 111/59 L 90 L 04/18/20 00:01 90 16 94 L 04/17/20 23:47 96 Weight Admit Weight 136 lb Weight 136 lb Most Recent Monitor Data Heart Rate from ECG 92 NIBP 108/74 NIBP BP-Mean 85 Respiration from ECG 26 SpO2 100 I&O: 04/17/20 04/18/20 04/19/20 06:59 06:59 06:59 Intake Total 218 985 Output Total 650 850 Balance -432 135 Result Diagrams: 04/17/20 03:54 04/18/20 10:16 Hospitalist ROS - Review of Systems Constitutional: denies: fever, chills Respiratory: denies: cough, shortness of breath Cardiovascular: denies: chest pain Gastrointestinal: denies: abdominal pain, diarrhea, constipation - Medication Medications: Active Medications Generic Name Dose Route Start Last Admin Trade Name Freq PRN Reason Stop Dose Admin Acetaminophen 650 mg 04/10/20 17:38 04/11/20 23:57 Acetaminophen 650 Mg Suppository DE 650 mg Q4H PRN Administration Headache/Fever/Mild Pain (1-3) Albuterol/Ipratropium 3 ml 04/10/20 19:00 04/18/20 06:53 Ipratropium/Albuterol Sulfate 3 Ml Neb NEB 3 ml [id number] AILIN Administration Aspirin 300 mg 04/13/20 09:00 04/18/20 09:55 Aspirin 300 Mg Suppository DE Not Given DAILY AILIN Atorvastatin Calcium 40 mg 04/14/20 21:00 04/17/20 21:00 Atorvastatin Calcium 40 Mg Tab PO Not Given HS AILIN Clopidogrel Bisulfate 75 mg 04/16/20 09:00 04/18/20 10:01 Clopidogrel Bisulfate 75 Mg Tab PO Not Given DAILY AILIN Heparin Sodium (Porcine) 5,000 units 04/10/20 21:00 04/18/20 10:09 Heparin 5,000 Units/Ml Vial SC Not Given BID AILIN Levetiracetam 750 mg/ Sodium 107.5 mls @ 215 mls/hr 04/13/20 21:00 04/18/20 10:00 Chloride IVPB 107.5 mls BID AILIN Administration Dextrose/Sodium Chloride 1,000 mls @ 75 mls/hr 04/17/20 16:15 04/18/20 04:32 D5 0.9% Ns IV 1,000 mls .[id number] AILIN Administration Clindamycin Phosphate/Dextrose 50 mls @ 100 mls/hr 04/17/20 22:00 04/18/20 04:31 600 mg/ Device IVPB 50 mls 0400,1000,1600,2200 AILIN Administration Pantoprazole Sodium 40 mg 04/18/20 09:00 04/18/20 10:01 Pantoprazole 40 Mg Granules Packet PO Not Given DAILY AILIN Sodium Chloride 10 ml 04/12/20 21:00 04/18/20 10:01 Flush - Normal Saline 10 Ml Syringe IVF 10 ml Q12HR AILIN Administration - Exam General Appearance: NAD, awake alert ENT: normocephalic atraumatic Neck: supple Heart: RRR, no murmur, no gallops, no rubs Respiratory: CTAB, no wheezes, no rales, no ronchi Gastrointestinal: soft, normal bowel sounds, tender to palpation (diffuse), distended Extremities: no cyanosis, no edema Skin - other findings: Pressure ulcer to right buttocks area, dressing clean & d ry with wound vac Neurological: cranial nerve grossly intact, normal sensation to touch, hemiplegia (left sided upper and lower extremity weakness) Musculoskeletal: generalized weakness (Muscle strength is 4/5 on the right upper and lower extremities, 0/5 on the left uppper and lower extremities) Psychiatric: normal affect, oriented to person Hosp A/P - Plan CT cervical spine: no acute fracture MRI brain: multifocal acute or subacute infarctions in multiple vascular territories including bilateral anterior cerebral and GLUE COOK territories. Left cerebellar lesion with weakly restricted diffusion and brainstem/spinal cord lesions This is a 70 year old male who was found immobilized at home and barely responsive to painful stimuli and was found with urine all over him. He had rhabdomyolysis, was febrile and obtunded Acute encephalopathy likely due to cardioembolic stroke vs seizures - patient had an LP which was positive for West Nile Virus , HSV 1 and II IgG positive, but IGM negative, CMV positive. His MRI brain showed multifocal infarctions and cerebellar/brainstem and spinal cord lesions. EEG showed left frontotemporal lobe seizures - continue aspirin/plavix, statin. ID was consulted, did not feel he needs acyclovir Dysphagia - speech consulted, patient failed modified barium swallow. PEG placement scheduled for today - will order D5NS for now Aspiration pneumonia - Chest Xray showed hazy opacities in right lung base. - continue clindamycin IV day 2 Hypernatremia - sodium incraesed to 146. Plan to start tube feeds once PEG tube is placed, repeat BMP tomorrow Seizures - EEG showed epileptogenic seizures in temporal lobe. neurology is following, continue keppra. No further seizures Dispo: will transfer to telemetry
[2020-04-18 12:32] LABS: Calcium 8.3 mg/dL (7.8-10.44)
[2020-04-18 12:33] LABS: Glucose 119 mg/dL (83-110)
[2020-04-18 12:34] LABS: Anion Gap 23 mmol/L (10-20); Carbon Dioxide 18 mmol/L (23-31)
[2020-04-18 12:36] LABS: Calc. Creatinine Clearance 77 mL/min (70-130)
[2020-04-18 12:37] LABS: BUN (Urea Nitrogen) 23 mg/dL (8.4-25.7)
[2020-04-18] MEDS ORDERED: Levofloxacin 500 mg/D5W 100 ml Premix Bag ONE (14:08)
--- NOTE | 2020-04-18 18:49 | OP ---
DATE OF PROCEDURE: 04/18/2020 PROCEDURE PERFORMED: Percutaneous endoscopic gastrostomy tube placement. ANESTHESIA: TIVA. Levaquin and clindamycin given preop. PREPROCEDURE DIAGNOSES: Oropharyngeal dysphagia after stroke. POSTPROCEDURE DIAGNOSES: Small hiatal hernia, otherwise normal EGD. PEG tube placed by Ponsky pull technique. DESCRIPTION OF PROCEDURE: After the patient's family was informed of risks, benefits, and possible complications of endoscopy including perforation, reaction was medication, aspiration, informed consent was obtained. The patient was brought to the endoscopy suite. He was sedated in gradual fashion. Once he was comfortable, a bite block was placed in the incisural orifice. The endoscope was advanced through bite block into the esophagus, stomach, and second and third portions of the duodenum. A small 4 cm sliding hiatal hernia was noted. Adequate place for PEG tube placement was identified by transillumination and finger indentation. The PEG tube was placed by Ponsky pull technique. Second-look confirmed good placement. There was normal stomach and duodenum. The scope was removed. The patient tolerated the procedure well. There were no complications. Job ID: [id number]
[2020-04-18 19:08] LABS: Hemoglobin 10.8 g/dL (14.0-18.0); Mean Corpuscular HGB CONC 33.2 g/dL (32.0-36.0); Mean Corpuscular Hemoglobin 30.2 pg (27.0-31.0); Mean Corpuscular Volume 91.2 fL (78.0-98.0); Mean Platelet Volume 8.1 fL (7.4-10.4); Platelet Count 565 thou/uL (130-400); RBC Distribution Width 13.3 % (11.5-14.5); Red Blood Cell (RBC) Count 3.58 mill/uL (4.70-6.10); White Blood Cell (WBC) Count 13.3 thou/uL (4.8-10.8)
[2020-04-18] MEDS: Atorvastatin Calcium 40 MG TAB PO SCH (21:04)
[2020-04-19] MEDS: Clindamycin/D5W 600 MG in Premix Bag 1 BAG IVPB SCH ×4 (04:11→21:50)
[2020-04-19] MEDS ORDERED: Nortriptyline 10 MG CAP ONE ×2 (08:08→09:23)
[2020-04-19] MEDS: Heparin 5,000 UNITS/ML VIAL SC SCH ×2 (08:29→21:51)
[2020-04-19] MEDS: Clopidogrel Bisulfate 75 MG TAB PO SCH (08:29)
[2020-04-19] MEDS: Aspirin 300 MG Suppository PR SCH (08:29)
[2020-04-19] MEDS: Pantoprazole 40 MG GRANULES PACKET PO SCH (08:31)
[2020-04-19] MEDS: Dextrose 5 % And 0.9 % NaCl 1,000 ML IV SCH (13:10)
[2020-04-19 13:37] LABS: Hemoglobin 10.6 g/dL (14.0-18.0); Mean Corpuscular HGB CONC 31.3 g/dL (32.0-36.0); Mean Corpuscular Volume 92.6 fL (78.0-98.0); Mean Platelet Volume 7.6 fL (7.4-10.4); Platelet Count 532 thou/uL (130-400); RBC Distribution Width 13.4 % (11.5-14.5); Red Blood Cell (RBC) Count 3.64 mill/uL (4.70-6.10); White Blood Cell (WBC) Count 8.8 thou/uL (4.8-10.8)
[2020-04-19 14:03] LABS: Anion Gap 13 mmol/L (10-20); BUN (Urea Nitrogen) 17 mg/dL (8.4-25.7); Calc. Creatinine Clearance 70 mL/min (70-130); Calcium 8.5 mg/dL (7.8-10.44); Carbon Dioxide 27 mmol/L (23-31); Chloride 111 mmol/L (98-107); Glucose 108 mg/dL (83-110); Sodium 148 mmol/L (136-145)
[2020-04-19 14:15] LABS: Potassium 2.9 mmol/L (3.5-5.1)
--- NOTE | 2020-04-19 14:22 | PDOC.NEUPN ---
- Subjective Encounter Date: 04/19/20 Subjective: Patient is somewhat somnolent but knows his name Jayce - Objective Vital Signs & Weight: Vital Signs (12 hours) Temp Pulse Resp BP Pulse Ox 04/19/20 12:40 84 18 94 L 04/19/20 12:27 97.5 F L 84 16 112/58 L 94 L 04/19/20 08:38 97.0 F L 84 16 109/59 L 95 04/19/20 07:59 81 16 95 04/19/20 04:00 97.7 F 88 18 102/58 L 98 Weight Admit Weight 136 lb Weight 136 lb Most Recent Monitor Data Heart Rate from ECG 92 NIBP 108/74 NIBP BP-Mean 85 Respiration from ECG 26 SpO2 100 I&O: 04/18/20 04/19/20 04/20/20 06:59 06:59 06:59 Intake Total 985 1297.5 30 Output Total 850 1125 250 Balance 135 172.5 -220 Result Diagrams: 04/19/20 13:21 04/19/20 13:21 Additional Labs: Accuchecks 04/18/20 17:28 POC Glucose 83 Radiology Reviewed by me: Yes EKG Reviewed by me: Yes ROS - Review of Systems ROS unobtainable: due to mental status - Medication Medications: Active Medications Generic Name Dose Route Start Last Admin Trade Name Joselyn PRN Reason Stop Dose Admin Acetaminophen 650 mg 04/10/20 17:38 04/11/20 23:57 Acetaminophen 650 Mg Suppository [place] 650 mg Q4H PRN Administration Headache/Fever/Mild Pain (1-3) Albuterol/Ipratropium 3 ml 04/10/20 19:00 04/19/20 12:40 Ipratropium/Albuterol Sulfate 3 Ml Neb NEB 3 ml [id number] AILIN Administration Aspirin 300 mg 04/13/20 09:00 04/19/20 08:29 Aspirin 300 Mg Suppository NV 300 mg DAILY AILIN Administration Atorvastatin Calcium 40 mg 04/14/20 21:00 04/18/20 21:04 Atorvastatin Calcium 40 Mg Tab PO Not Given HS AILIN Clopidogrel Bisulfate 75 mg 04/16/20 09:00 04/19/20 08:29 Clopidogrel Bisulfate 75 Mg Tab PO 75 mg DAILY AILIN Administration Heparin Sodium (Porcine) 5,000 units 04/10/20 21:00 04/19/20 08:29 Heparin 5,000 Units/Ml Vial SC 5,000 units BID AILIN Administration Levetiracetam 750 mg/ Sodium 107.5 mls @ 215 mls/hr 04/13/20 21:00 04/19/20 09:08 Chloride IVPB 107.5 mls BID AILIN Administration Dextrose/Sodium Chloride 1,000 mls @ 75 mls/hr 04/17/20 16:15 04/19/20 13:10 D5 0.9% Ns IV 1,000 mls .[id number] AILIN Administration Clindamycin Phosphate/Dextrose 50 mls @ 100 mls/hr 04/17/20 22:00 04/19/20 09:09 600 mg/ Device IVPB 50 mls 0400,1000,1600,2200 AILIN Administration Pantoprazole Sodium 40 mg 04/18/20 09:00 04/19/20 08:31 Pantoprazole 40 Mg Granules Packet PO 40 mg DAILY AILIN Administration Sodium Chloride 10 ml 04/12/20 21:00 04/19/20 09:10 Flush - Normal Saline 10 Ml Syringe IVF 10 ml Q12HR AILIN Administration - Exam General Appearance: NAD Eye: PERRL ENT: normocephalic atraumatic Neck: supple Respiratory: CTAB Cardiovascular: RRR Gastrointestinal: soft Extremities: no cyanosis Skin: normal turgor Neurological: no new deficit PSYCH: oriented to person, somnolent Results - Labs Result Diagrams: 04/19/20 13:21 04/19/20 13:21 Lab results: WBC 8.8 thou/uL (4.8-10.8) 04/19/20 13:21 Hgb 10.6 g/dL (14.0-18.0) L 04/19/20 13:21 Hct 33.7 % (42.0-52.0) L 04/19/20 13:21 MCV 92.6 fL (78.0-98.0) 04/19/20 13:21 Plt Count 532 thou/uL (130-400) H 04/19/20 13:21 Band Neuts % (Manual) 3 % (5-11) L 04/16/20 03:39 ABG pH 7.51 (7.35-7.45) H 04/10/20 16:10 ABG pCO2 29.2 mmHg (35.0-45.0) L 04/10/20 16:10 ABG pO2 54.9 mmHg (> 70.0) L* 04/10/20 16:10 Sodium 148 mmol/L (136-145) H 04/19/20 13:21 Potassium 2.9 mmol/L (3.5-5.1) L* 04/19/20 13:21 Chloride 111 mmol/L (98-107) H 04/19/20 13:21 Carbon Dioxide 27 mmol/L (23-31) 04/19/20 13:21 BUN 17 mg/dL (8.4-25.7) 04/19/20 13:21 Creatinine 0.85 mg/dL (0.7-1.3) 04/19/20 13:21 Glucose 108 mg/dL (83-110) 04/19/20 13:21 Lactic Acid 2.0 mmol/L (0.5-2.2) 04/13/20 03:49 Calcium 8.5 mg/dL (7.8-10.44) 04/19/20 13:21 Total Bilirubin 1.2 mg/dL (0.2-1.2) 04/13/20 03:49 AST 72 U/L (5-34) H 04/13/20 03:49 ALT 31 U/L (8-55) 04/13/20 03:49 Alkaline Phosphatase 53 U/L (40-110) 04/13/20 03:49 Ammonia 38 umol/L (18-72) 04/10/20 16:49 Creatine Kinase 912 U/L (30-200) H 04/13/20 03:49 CK-MB (CK-2) 16.6 ng/mL (0-6.6) H* 04/10/20 16:49 Troponin I 0.148 ng/mL (< 0.028) H 04/10/20 22:49 C-Reactive Protein 29.71 mg/dL (= or < 0.5) H 04/13/20 03:49 B-Natriuretic Peptide 38.9 pg/mL (0-100) 04/10/20 16:49 Serum Total Protein 5.6 g/dL (5.8-8.1) L 04/13/20 03:49 Albumin 2.5 g/dL (3.4-4.8) L 04/13/20 03:49 Lipase 51 U/L (8-78) 04/10/20 16:49 Urine Ketones 20 mg/dL (Negative) A 04/10/20 15:40 Urine Blood 3+ (Negative) A 04/10/20 15:40 Urine Nitrite Negative (Negative) 04/10/20 15:40 Ur Leukocyte Esterase Negative Rafael/uL (Negative) 04/10/20 15:40 Urine RBC 7-10 HPF (0-3) A 04/10/20 15:40 Urine WBC 0-3 HPF (0-3) 04/10/20 15:40 Ur Squamous Epith Cells 0-3 HPF (0-3) 04/10/20 15:40 Urine Bacteria Rare-Few HPF (None Seen) 04/10/20 15:40 - Radiology Interpretation MRI - head Additional Comment: MRI of the head was consistent with acute infarction in multiple vascular territories PN A/P (1) Embolic stroke Code(s): I63.9 - CEREBRAL INFARCTION, UNSPECIFIED Status: Acute (2) Hypernatremia Code(s): E87.0 - HYPEROSMOLALITY AND HYPERNATREMIA Status: Acute (3) Rhabdomyolysis Code(s): M62.82 - RHABDOMYOLYSIS Status: Acute Qualifiers: Rhabdomyolysis type: non-traumatic Qualified Code(s): M62.82 - Rhabdomyolysis (4) Sacral decubitus ulcer Code(s): L89.159 - PRESSURE ULCER OF SACRAL REGION, UNSPECIFIED STAGE Status: Acute Qualifiers: Pressure injury stage: stage 3 Qualified Code(s): L89.153 - Pressure ulcer of sacral region, stage 3 (5) Sepsis Code(s): A41.9 - SEPSIS, UNSPECIFIED ORGANISM Status: Acute Qualifiers: Sepsis type: sepsis due to unspecified organism Sepsis acute organ dysfunction status: with acute organ dysfunction Severe sepsis acute organ dysfunction type: acute renal failure (6) Toxic metabolic encephalopathy Code(s): G92 - TOXIC ENCEPHALOPATHY Status: Acute (7) WYATT (acute kidney injury) Code(s): N17.9 - ACUTE KIDNEY FAILURE, UNSPECIFIED Status: Resolved (8) Lactic acidosis Code(s): E87.2 - ACIDOSIS Status: Resolved (9) Dehydration Code(s): E86.0 - DEHYDRATION Status: Acute (10) Orthostatic hypotension Code(s): I95.1 - ORTHOSTATIC HYPOTENSION Status: Acute (11) Syncope Code(s): R55 - SYNCOPE AND COLLAPSE Status: Acute (12) TIA (transient ischemic attack) Status: Acute (13) Dementia Code(s): F03.90 - UNSPECIFIED DEMENTIA WITHOUT BEHAVIORAL DISTURBANCE Status: Chronic Qualifiers: Dementia type: Alzheimer's disease (14) Normocytic anemia Code(s): D64.9 - ANEMIA, UNSPECIFIED Status: Chronic - Plan Daily Plan: PT/OT, speech therapy, DVT proph w/lovenox Mr. Del Rosario is a 70-year-old male who presented with altered mental status. MRI of the brain consistent with acute infarction which seems cardioembolic since multiple vascular territories were involved. Cardiology is on board. MRI of the brain reviewed which was consistent with multiple tiny acute infarct in both cerebellar hemispheres and also cerebral hemispheres. EEG reviewed which was consistent with sharps emanating from the left temporal lobe. Repeat EEG did not show any electrographic seizures but was consistent with left temporal epilepsy . EEG was repeated because of concern about herpes since herpes encephalitis has predilection for temporal lobe seizures. Continue Keppra 500 mg twice daily. Ativan 2 mg IV for seizure greater than 2 minutes. Neurochecks every 4 hours. Continue to observe seizure precautions. Continue aspirin, Plavix and high intensity statin for secondary stroke prevention. Plavix was added after discussion with cardiology since patient was already on aspirin but skilled nursing records. Stroke seems cardioembolic. 2D echo is unremarkable. Cardiology is on board. Patient has Linq recorder which has been interrogated by cardiology. Continue home medications. Strict control of blood pressure and blood glucose. Herpes PCR positive. ID is on board. Continue medical management per primary team and ID. PT/OT/speech Case management consult regarding discharge planning. Plan discussed with the nursing staff.
--- NOTE | 2020-04-19 14:22 | PRG ---
DATE OF SERVICE: 04/19/2020 REASON FOR CONSULTATION: Oropharyngeal dysphagia, status post PEG tube placement. SUBJECTIVE: Per nursing staff, the patient was started on tube feeds early this morning and since that time has had frequent semi-solid to liquid bowel movements. Stool studies were sent for possible infection with C diff negative thus far. Otherwise, the patient has been doing well with no evidence of nausea, vomiting, fevers, chills, GI bleeding, or significant abdominal pain. OBJECTIVE: VITAL SIGNS: Temperature 97.5, pulse 84, blood pressure 112/58, respiratory rate 18, saturating 94% on room air. GENERAL: The patient was lying in bed, in no acute distress. Alert and oriented x2. CARDIOVASCULAR: Regular rate and rhythm. RESPIRATORY: Clear to auscultation bilaterally. ABDOMEN: Normoactive bowel sounds. Soft, nondistended, mild tenderness to palpation around the percutaneous gastrostomy tube site. The gastrostomy tube was located roughly in the midepigastric region without evidence of skin erythema or wound breakdown/purulence. The external bumper was loosened approximately 1 cm. EXTREMITIES: No cyanosis, clubbing, or edema. Cachectic in appearance. LABORATORY DATA: No current studies are available for review. IMAGING DATA: The patient underwent successful percutaneous gastrostomy tube placement, a 20-[place] [employer] PEG tube, on April 18, 2020, with only findings of a 4 cm hiatal hernia during the EGD portion of that evaluation. ASSESSMENT AND PLAN: The patient is a 70-year-old male with past medical history of coronary artery disease, hypertension, gastritis, and recurrent embolic cerebrovascular accident with resultant vascular dementia and resulting in oropharyngeal dysphagia, now status post PEG tube placement. Oropharyngeal dysphagia. The patient initially presented with altered mental status after being found down at home. On initial evaluation here in the hospital, he was noted to have multiple embolic cerebrovascular accidents and progressive vascular dementia in addition to a decubitus ulceration and aspiration pneumonia. Speech pathology evaluation noted that the patient had significant aspiration with multiple consistencies. As such, a percutaneous gastrostomy tube was placed on April 18, 2020, with tube feeds started this morning. Since this morning, the patient has had multiple semi-solid to liquid bowel movements, which seem to be more related to the reintroduction of liquid food stuffs rather than an infectious etiology (although infectious studies are still pending). RECOMMENDATIONS: 1. We would continue with standard PEG tube care. 2. We would hold progression of the tube feed rate at 30 mL/h until tomorrow to assess how the patient tolerates this rate of tube feed introduction. 3. We would follow up on the infectious stool studies and treat if positive. 4. We would consider adding fiber to tube feeds as part of a stool bulking technique. 5. We would consider loperamide 2 mg b.i.d. as an antimotility agent until the patient stools become more normalized. We will continue to follow peripherally. Please call with any questions. Job ID: [id number]
--- NOTE | 2020-04-19 14:44 | PDOC.HOSPP ---
- Subjective Encounter Date: 04/19/20 Encounter Time: 14:43 Subjective: Mr. Del Rosario has no complaints today. He had his PEG tube placed yesterday, and is now getting tube feeds. He is very sleepy today and difficult to arouse for evaluation, although he does open his eyes. Per nursing staff, he has been communicating with them periodically throughout the day. He is having frequent bouts of diarrhea since last night. The patient is supposedly from [facility] assisted [facility], but unable to verify. Regardless this does not seem to be adequate enough care for him at this point and likely will need higher level of care - Objective Vital Signs & Weight: Vital Signs (12 hours) Temp Pulse Resp BP Pulse Ox 04/19/20 12:40 84 18 94 L 04/19/20 12:27 97.5 F L 84 16 112/58 L 94 L 04/19/20 08:38 97.0 F L 84 16 109/59 L 95 04/19/20 07:59 81 16 95 04/19/20 04:00 97.7 F 88 18 102/58 L 98 Weight Admit Weight 136 lb Weight 136 lb Most Recent Monitor Data Heart Rate from ECG 92 NIBP 108/74 NIBP BP-Mean 85 Respiration from ECG 26 SpO2 100 I&O: 04/18/20 04/19/20 04/20/20 06:59 06:59 06:59 Intake Total 985 1297.5 30 Output Total 850 1125 250 Balance 135 172.5 -220 Result Diagrams: 04/19/20 13:21 04/19/20 13:21 Additional Labs: Accuchecks 04/18/20 17:28 POC Glucose 83 Hospitalist ROS - Review of Systems ROS unobtainable: due to mental status (Patient is very sleepy and does not participate in history or physical exam currently.) - Medication Medications: Active Medications Generic Name Dose Route Start Last Admin Trade Name Freq PRN Reason Stop Dose Admin Acetaminophen 650 mg 04/10/20 17:38 04/11/20 23:57 Acetaminophen 650 Mg Suppository DE 650 mg Q4H PRN Administration Headache/Fever/Mild Pain (1-3) Albuterol/Ipratropium 3 ml 04/10/20 19:00 04/19/20 12:40 Ipratropium/Albuterol Sulfate 3 Ml Neb NEB 3 ml [id number] AILIN Administration Aspirin 300 mg 12/04/20 09:00 04/19/20 08:29 Aspirin 300 Mg Suppository DE 300 mg DAILY AILIN Administration Atorvastatin Calcium 40 mg 04/14/20 21:00 04/18/20 21:04 Atorvastatin Calcium 40 Mg Tab PO Not Given HS AILIN Clopidogrel Bisulfate 75 mg 04/16/20 09:00 04/19/20 08:29 Clopidogrel Bisulfate 75 Mg Tab PO 75 mg DAILY AILIN Administration Heparin Sodium (Porcine) 5,000 units 04/10/20 21:00 04/19/20 08:29 Heparin 5,000 Units/Ml Vial SC 5,000 units BID AILIN Administration Levetiracetam 750 mg/ Sodium 107.5 mls @ 215 mls/hr 04/13/20 21:00 04/19/20 09:08 Chloride IVPB 107.5 mls BID AILIN Administration Dextrose/Sodium Chloride 1,000 mls @ 75 mls/hr 04/17/20 16:15 04/19/20 13:10 D5 0.9% Ns IV 1,000 mls .[id number] AILIN Administration Clindamycin Phosphate/Dextrose 50 mls @ 100 mls/hr 04/17/20 22:00 04/19/20 09:09 600 mg/ Device IVPB 50 mls 0400,1000,1600,2200 AILIN Administration Pantoprazole Sodium 40 mg 04/18/20 09:00 04/19/20 08:31 Pantoprazole 40 Mg Granules Packet PO 40 mg DAILY AILIN Administration Sodium Chloride 10 ml 04/12/20 21:00 04/19/20 09:10 Flush - Normal Saline 10 Ml Syringe IVF 10 ml Q12HR AILIN Administration - Exam General Appearance: NAD ENT: normocephalic atraumatic Neck: supple, no lymphadenopathy Heart: RRR, no murmur, no gallops, no rubs Respiratory: CTAB, no wheezes, no rales, no ronchi Gastrointestinal: soft, non-tender, normal bowel sounds Extremities: no cyanosis, no clubbing, no edema Skin: normal turgor, no lesions, no rashes Neurological: no new deficit Musculoskeletal: generalized weakness (left sided > right sided) Psychiatric: oriented to person Psychiatric - other findings: fluctuating alertness Hosp A/P - Plan CT cervical spine: no acute fracture MRI brain: multifocal acute or subacute infarctions in multiple vascular territories including bilateral anterior cerebral and WASH [employer] territories. Left cerebellar lesion with weakly restricted diffusion and brainstem/spinal cord lesions This is a 70 year old male who was found immobilized at home and barely responsive to painful stimuli and was found with urine all over him. He had rhabdomyolysis, was febrile and obtunded Acute encephalopathy likely due to cardioembolic stroke vs seizures - patient had an LP which was positive for West Nile Virus , HSV 1 and II IgG positive, but IGM negative, CMV positive. His MRI brain showed multifocal infarctions and cerebellar/brainstem and spinal cord lesions. EEG showed left frontotemporal lobe seizures - continue aspirin/plavix, statin. ID was consulted, did not feel he needs acyclovir Dysphagia - speech consulted, patient failed modified barium swallow. PEG tube in place. Tolerating tube feeds. Aspiration pneumonia - Chest Xray showed hazy opacities in right lung base. - continue clindamycin IV day 3 Hypernatremia - sodium increased to 148 . Will d/c IV fluids an add free water flushes Hypokalemia - potassium is low at 2.9, add 60 potassium Seizures - EEG showed epileptogenic seizures in temporal lobe. neurology is following, co jesus sweeney. No further seizures Diarrhea - stool cultures pending, ova and parasite pending, C diff negative Dispo: Patient has transferred to the stroke unit
[2020-04-19] MEDS ORDERED: Potassium Bicarbonate/Cit Ac 20 MEQ TAB PO SCH (14:45)
--- NOTE | 2020-04-19 18:08 | CT ---
CT Brain WO Con History: Lethargy Comparison: CT brain April 10, 2020 Findings: Subtle hypodensities along the medial margin bilateral middle frontal gyri. There is also p eripheral hypodensity along the right anterior frontal and parietal lobes. Hypodensity is also present along the left frontal operculum. No hemorrhagic transformation is appreciated Impression: Evolving multifocal bilateral supratentorial infarctions.
[2020-04-19] MEDS: Atorvastatin Calcium 40 MG TAB PO SCH (21:49)
[2020-04-20 00:04] LABS: Potassium 3.8 mmol/L (3.5-5.1)
[2020-04-20 05:25] LABS: Anion Gap 14 mmol/L (10-20); BUN (Urea Nitrogen) 15 mg/dL (8.4-25.7); Calc. Creatinine Clearance 75 mL/min (70-130); Calcium 8.2 mg/dL (7.8-10.44); Carbon Dioxide 26 mmol/L (23-31); Chloride 112 mmol/L (98-107); Glucose 110 mg/dL (83-110); Potassium 3.1 mmol/L (3.5-5.1); Sodium 149 mmol/L (136-145)
[2020-04-20] MEDS: Clindamycin/D5W 600 MG in Premix Bag 1 BAG IVPB SCH ×4 (05:40→23:30)
--- NOTE | 2020-04-20 09:19 | PDOC.HOSPP ---
- Subjective Encounter Date: 04/20/20 Encounter Time: 09:37 Subjective: Mr. Del Rosario is doing well, no complaints currently. He is more alert and cooperative today. Per nursing, the patient still has some mild diarrhea, but this is improving. Upon re-evaluation an hour later, patient was very drowsy and difficult to arouse, but did move slightly to command The nurse states urine output has been diminished - Objective Vital Signs & Weight: Vital Signs (12 hours) Temp Pulse Resp BP Pulse Ox 04/20/20 08:05 97.5 F L 100 22 H 108/59 L 96 04/20/20 07:21 93 13 04/20/20 04:00 98.4 F 87 16 108/55 L 95 04/20/20 00:12 99 04/20/20 00:10 77 18 99 04/20/20 00:00 98.1 F 90 14 106/59 L 98 Weight Admit Weight 136 lb Weight 136 lb Most Recent Monitor Data Heart Rate from ECG 92 NIBP 108/74 NIBP BP-Mean 85 Respiration from ECG 26 SpO2 100 I&O: 04/19/20 04/20/20 04/21/20 06:59 06:59 06:59 Intake Total 1297.5 2560 Output Total 1125 702 Balance 172.5 1858 Result Diagrams: 04/19/20 13:21 04/20/20 04:48 Hospitalist ROS - Review of Systems Constitutional: denies: fever, chills Respiratory: denies: cough, shortness of breath Cardiovascular: denies: chest pain, palpitations Gastrointestinal: reports: diarrhea. denies: nausea, vomiting, abdominal pain - Medication Medications: Active Medications Generic Name Dose Route Start Last Admin Trade Name Freq PRN Reason Stop Dose Admin Acetaminophen 650 mg 04/10/20 17:38 04/11/20 23:57 Acetaminophen 650 Mg Suppository [place] 650 mg Q4H PRN Administration Headache/Fever/Mild Pain (1-3) Albuterol/Ipratropium 3 ml 04/10/20 19:00 04/20/20 07:21 Ipratropium/Albuterol Sulfate 3 Ml Neb NEB 3 ml [id number] AILIN Administration Atorvastatin Calcium 40 mg 04/14/20 21:00 04/19/20 21:49 Atorvastatin Calcium 40 Mg Tab PO Not Given HS AILIN Clopidogrel Bisulfate 75 mg 04/16/20 09:00 04/19/20 08:29 Clopidogrel Bisulfate 75 Mg Tab PO 75 mg DAILY AILIN Administration Heparin Sodium (Porcine) 5,000 units 04/10/20 21:00 04/19/20 21:51 Heparin 5,000 Units/Ml Vial SC 5,000 units BID AILIN Administration Levetiracetam 750 mg/ Sodium 107.5 mls @ 215 mls/hr 04/13/20 21:00 04/19/20 21:50 Chloride IVPB 107.5 mls BID AILIN Administration Clindamycin Phosphate/Dextrose 50 mls @ 100 mls/hr 04/17/20 22:00 04/20/20 05:40 600 mg/ Device IVPB 50 mls 0400,1000,1600,2200 AILIN Administration Pantoprazole Sodium 40 mg 04/18/20 09:00 04/19/20 08:31 Pantoprazole 40 Mg Granules Packet PO 40 mg DAILY AILIN Administration Sodium Chloride 10 ml 04/12/20 21:00 04/19/20 21:51 Flush - Normal Saline 10 Ml Syringe IVF 10 ml Q12HR AILIN Administration - Exam General Appearance: NAD, awake alert Eye: PERRL, anicteric sclera ENT: normocephalic atraumatic Neck: supple Heart: RRR, no murmur, no gallops, no rubs Respiratory: CTAB, no wheezes, no rales, no ronchi Gastrointestinal: soft, non-distended, normal bowel sounds, tender to palpation (over PEG tube) Extremities: no cyanosis, no clubbing, no edema Skin: normal turgor, no lesions, no rashes Neurological: cranial nerve grossly intact, no new deficit (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 Left cerebellar lesion with weakly restricted diffusion and brainstem/spinal cord lesions This is a 70 year old male who was found immobilized at home and barely responsive to painful stimuli and was found with urine all over him. He had rhabdomyolysis, was febrile and obtunded Acute encephalopathy likely due to cardioembolic stroke vs seizures - patient had an LP which was positive for West Nile Virus , HSV 1 and II IgG positive, but IGM negative, CMV positive. His MRI brain showed multifocal infarctions and cerebellar/brainstem and spinal cord lesions. EEG showed left frontotemporal lobe seizures - continue aspirin/plavix, statin. ID was consulted, did not feel he needs acyclovir - CT brain done 04/20 showed evolving multifocal bilateral supratentorial infarctions Hypernatremia - sodium increased to 149. Started D5W and added free water flushes. Will recheck BMP this afternoon Dysphagia - s/p PEG tube placement after patient failed MBS - tube feeds will be advanced gradually today per GI Aspiration pneumonia - Chest Xray showed hazy opacities in right lung base. 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 neurology is following, continue keppra. No further seizures Diarrhea - stool cultures negative, ova and parasite negative, C diff negative Dispo: pending improvement in hypernatremia
[2020-04-20] MEDS ORDERED: Aspirin 325 MG TAB ONE (09:29)
[2020-04-20] MEDS ORDERED: Potassium Bicarbonate/Cit Ac 20 MEQ TAB PO SCH ×2 (09:30→17:15)
[2020-04-20] MEDS: Clopidogrel Bisulfate 75 MG TAB PO SCH (09:49)
[2020-04-20] MEDS: Heparin 5,000 UNITS/ML VIAL SC SCH ×2 (09:49→21:31)
[2020-04-20] MEDS: Pantoprazole 40 MG GRANULES PACKET PO SCH (09:50)
[2020-04-20] MEDS: Dextrose 5% in Water 1,000 ML IV SCH ×2 (09:50→21:32)
[2020-04-20] MEDS: Aspirin 300 MG Suppository PR SCH (09:54)
--- NOTE | 2020-04-20 13:07 | PDOC.NEUPN ---
- Subjective Encounter Date: 04/20/20 Subjective: Patient is awake and alert and knows his name. He followed commands int ermittently. - Objective Vital Signs & Weight: Vital Signs (12 hours) Temp Pulse Pulse Pulse Resp BP BP 04/20/20 12:00 96.6 F L 88 20 04/20/20 10:03 84 79 125/62 122/62 04/20/20 09:19 04/20/20 08:05 97.5 F L 100 22 H 04/20/20 07:21 93 13 04/20/20 04:00 98.4 F 87 16 BP Pulse Ox 04/20/20 12:00 113/56 L 95 04/20/20 10:03 04/20/20 09:19 96 04/20/20 08:05 108/59 L 96 04/20/20 07:21 04/20/20 04:00 108/55 L 95 Weight Admit Weight 136 lb Weight 136 lb Most Recent Monitor Data Heart Rate from ECG 92 NIBP 108/74 NIBP BP-Mean 85 Respiration from ECG 26 SpO2 100 I&O: 04/19/20 04/20/20 04/21/20 06:59 06:59 06:59 Intake Total 1297.5 2560 200 Output Total 1125 702 Balance 172.5 1858 200 Result Diagrams: 04/19/20 13:21 04/20/20 04:48 Radiology Reviewed by me: Yes EKG Reviewed by me: Yes ROS - Review of Systems ROS unobtainable: due to mental status - Medication Medications: Active Medications Generic Name Dose Route Start Last Admin Trade Name Freq PRN Reason Stop Dose Admin Acetaminophen 650 mg 04/10/20 17:38 04/11/20 23:57 Acetaminophen 650 Mg Suppository [place] 650 mg Q4H PRN Administration Headache/Fever/Mild Pain (1-3) Albuterol/Ipratropium 3 ml 04/10/20 19:00 04/20/20 07:21 Ipratropium/Albuterol Sulfate 3 Ml Neb NEB 3 ml [id number] AILIN Administration Atorvastatin Calcium 40 mg 04/14/20 21:00 04/19/20 21:49 Atorvastatin Calcium 40 Mg Tab PO Not Given HS AILIN Clopidogrel Bisulfate 75 mg 04/16/20 09:00 04/20/20 09:49 Clopidogrel Bisulfate 75 Mg Tab PO 75 mg DAILY AILIN Administration Heparin Sodium (Porcine) 5,000 units 04/10/20 21:00 04/20/20 09:49 Heparin 5,000 Units/Ml Vial SC 5,000 units BID AILIN Administration Levetiracetam 750 mg/ Sodium 107.5 mls @ 215 mls/hr 04/13/20 21:00 04/20/20 09:49 Chloride IVPB 107.5 mls BID AILIN Administration Clindamycin Phosphate/Dextrose 50 mls @ 100 mls/hr 04/17/20 22:00 04/20/20 11:23 600 mg/ Device IVPB 50 mls 0400,1000,1600,2200 AILIN Administration Dextrose/Water 1,000 mls @ 100 mls/hr 04/20/20 09:30 04/20/20 09:50 D5w IV 1,000 mls .Q10H AILIN Administration Pantoprazole Sodium 40 mg 04/18/20 09:00 04/20/20 09:50 Pantoprazole 40 Mg Granules Packet PO 40 mg DAILY AILIN Administration Sodium Chloride 10 ml 04/12/20 21:00 04/20/20 09:50 Flush - Normal Saline 10 Ml Syringe IVF 10 ml Q12HR AILIN Administration - Exam General Appearance: awake alert Eye: PERRL ENT: normocephalic atraumatic Neck: supple Respiratory: CTAB Cardiovascular: RRR Gastrointestinal: soft Extremities: no cyanosis Skin: normal turgor Neurological: no new deficit Musculoskeletal: generalized weakness PSYCH: normal affect, normal behavior, oriented to person Results - Labs Result Diagrams: 04/19/20 13:21 04/20/20 04:48 Lab results: WBC 8.8 thou/uL (4.8-10.8) 04/19/20 13:21 Hgb 10.6 g/dL (14.0-18.0) L 04/19/20 13:21 Hct 33.7 % (42.0-52.0) L 04/19/20 13:21 MCV 92.6 fL (78.0-98.0) 04/19/20 13:21 Plt Count 532 thou/uL (130-400) H 04/19/20 13:21 Band Neuts % (Manual) 3 % (5-11) L 04/16/20 03:39 ABG pH 7.51 (7.35-7.45) H 04/10/20 16:10 ABG pCO2 29.2 mmHg (35.0-45.0) L 04/10/20 16:10 ABG pO2 54.9 mmHg (> 70.0) L* 04/10/20 16:10 Sodium 149 mmol/L (136-145) H 04/20/20 04:48 Potassium 3.1 mmol/L (3.5-5.1) L 04/20/20 04:48 Chloride 112 mmol/L (98-107) H 04/20/20 04:48 Carbon Dioxide 26 mmol/L (23-31) 04/20/20 04:48 BUN 15 mg/dL (8.4-25.7) 04/20/20 04:48 Creatinine 0.79 mg/dL (0.7-1.3) 04/20/20 04:48 Glucose 110 mg/dL (83-110) 04/20/20 04:48 Lactic Acid 2.0 mmol/L (0.5-2.2) 04/13/20 03:49 Calcium 8.2 mg/dL (7.8-10.44) 04/20/20 04:48 Total Bilirubin 1.2 mg/dL (0.2-1.2) 04/13/20 03:49 AST 72 U/L (5-34) H 04/13/20 03:49 ALT 31 U/L (8-55) 04/13/20 03:49 Alkaline Phosphatase 53 U/L (40-110) 04/13/20 03:49 Ammonia 38 umol/L (18-72) 04/10/20 16:49 Creatine Kinase 912 U/L (30-200) H 04/13/20 03:49 CK-MB (CK-2) 16.6 ng/mL (0-6.6) H* 04/10/20 16:49 Troponin I 0.148 ng/mL (< 0.028) H 04/10/20 22:49 C-Reactive Protein 29.71 mg/dL (= or < 0.5) H 04/13/20 03:49 B-Natriuretic Peptide 38.9 pg/mL (0-100) 04/10/20 16:49 Serum Total Protein 5.6 g/dL (5.8-8.1) L 04/13/20 03:49 Albumin 2.5 g/dL (3.4-4.8) L 04/13/20 03:49 Lipase 51 U/L (8-78) 04/10/20 16:49 Urine Ketones 20 mg/dL (Negative) A 04/10/20 15:40 Urine Blood 3+ (Negative) A 04/10/20 15:40 Urine Nitrite Negative (Negative) 04/10/20 15:40 Ur Leukocyte Esterase Negative Rafael/uL (Negative) 04/10/20 15:40 Urine RBC 7-10 HPF (0-3) A 04/10/20 15:40 Urine WBC 0-3 HPF (0-3) 04/10/20 15:40 Ur Squamous Epith Cells 0-3 HPF (0-3) 04/10/20 15:40 Urine Bacteria Rare-Few HPF (None Seen) 04/10/20 15:40 - EKG Interpretation EKG: Atrial fibrillation - Radiology Interpretation MRI - head Additional Comment: MRI of the brain was positive for multiple tiny lacunar infarctions in multiple vascular distributions PN A/P (1) Embolic stroke Code(s): I63.9 - CEREBRAL INFARCTION, UNSPECIFIED Status: Acute (2) Hypernatremia Code(s): E87.0 - HYPEROSMOLALITY AND HYPERNATREMIA Status: Acute (3) Rhabdomyolysis Code(s): M62.82 - RHABDOMYOLYSIS Status: Acute Qualifiers: Rhabdomyolysis type: non-traumatic Qualified Code(s): M62.82 - Rhabdomyolysis (4) Sacral decubitus ulcer Code(s): L89.159 - PRESSURE ULCER OF SACRAL REGION, UNSPECIFIED STAGE Status: Acute Qualifiers: Pressure injury stage: stage 3 Qualified Code(s): L89.153 - Pressure ulcer of sacral region, stage 3 (5) Sepsis Code(s): A41.9 - SEPSIS, UNSPECIFIED ORGANISM Status: Acute Qualifiers: Sepsis type: sepsis due to unspecified organism Sepsis acute organ dysfunction status: with acute organ dysfunction Severe sepsis acute organ dysfunction type: acute renal failure (6) Toxic metabolic encephalopathy Code(s): G92 - TOXIC ENCEPHALOPATHY Status: Acute (7) WYATT (acute kidney injury) Code(s): N17.9 - ACUTE KIDNEY FAILURE, UNSPECIFIED Status: Resolved (8) Lactic acidosis Code(s): E87.2 - ACIDOSIS Status: Resolved (9) Dehydration Code(s): E86.0 - DEHYDRATION Status: Acute (10) Orthostatic hypotension Code(s): I95.1 - ORTHOSTATIC HYPOTENSION Status: Acute (11) Syncope Code(s): R55 - SYNCOPE AND COLLAPSE Status: Acute (12) TIA (transient ischemic attack) Status: Acute (13) Dementia Code(s): F03.90 - UNSPECIFIED DEMENTIA WITHOUT BEHAVIORAL DISTURBANCE Status: Chronic Qualifiers: Dementia type: Alzheimer's disease (14) Normocytic anemia Code(s): D64.9 - ANEMIA, UNSPECIFIED Status: Chronic - Plan Daily Plan: PT/OT, speech therapy, DVT proph w/SCDs Mr. Del oRsario is a 70-year-old male who presented with altered mental status which is slowly improving. Altered mental status seems to be multifactorial due to metabolic, infectious and intracranial etiologies. MRI of the brain consistent with acute infarction which seems cardioembolic since multiple vascular territories were involved. Cardiology is on board and appreciate their input. MRI of the brain reviewed which was consistent with multiple tiny acute infarct in both cerebellar hemispheres and also cerebral hemispheres. EEG reviewed which was consistent with sharps emanating from the left temporal lobe. Repeat EEG did not show any electrographic seizures but was consistent with left temporal epilepsy . EEG was repeated because of concern about herpes since herpes encephalitis has predilection for temporal lobe seizures. Continue Keppra 500 mg twice daily. Ativan 2 mg IV for seizure greater than 2 minutes. Neurochecks every 4 hours. Continue to observe seizure precautions. Continue aspirin, Plavix and high intensity statin for secondary stroke prevention. Plavix was added after discussion with cardiology since patient was already on aspirin but longterm records. Stroke seems cardioembolic. 2D echo is unremarkable. Cardiology is on board. Patient has Linq recorder which has been interrogated by cardiology. Continue home medications. Strict control of blood pressure and blood glucose. Continue medical management per primary team PT/OT/speech Case management consult regarding discharge planning. Plan discussed with the nursing staff.
[2020-04-20 13:36] LABS: Actual Bicarbonate (HCO3v) 30 mEq/L (22-28); Base Excess 5.3 mEq/L (-2.0 to +3.0); Calcium, Ionized (venous) 1.19 mmol/L (1.16-1.32); Chloride (VBG) 112 mmol/L (98-106); Hemoglobin (Hb) 10.6 g/dL (12.6-17.4); Potassium (VBG) 3.19 mmol/L (3.70-5.30); Sodium 146.1 mmol/L (133-146); pH (venous) 7.46 (7.32-7.43)
[2020-04-20 16:40] LABS: Anion Gap 13 mmol/L (10-20); BUN (Urea Nitrogen) 12 mg/dL (8.4-25.7); Calc. Creatinine Clearance 81 mL/min (70-130); Calcium 8.1 mg/dL (7.8-10.44); Carbon Dioxide 28 mmol/L (23-31); Chloride 110 mmol/L (98-107); Glucose 121 mg/dL (83-110); Sodium 148 mmol/L (136-145)
[2020-04-20] MEDS: Atorvastatin Calcium 40 MG TAB PO SCH (21:31)
[2020-04-20] MEDS: Loperamide HCl 1 MG/7.5 ML UDCUP PO PRN (21:33)
[2020-04-21] MEDS: Clindamycin/D5W 600 MG in Premix Bag 1 BAG IVPB SCH ×4 (04:44→21:56)
[2020-04-21 05:05] LABS: Hemoglobin 8.9 g/dL (14.0-18.0); Mean Corpuscular HGB CONC 32.1 g/dL (32.0-36.0); Mean Corpuscular Hemoglobin 29.2 pg (27.0-31.0); Mean Corpuscular Volume 90.9 fL (78.0-98.0); Mean Platelet Volume 8.1 fL (7.4-10.4); Platelet Count 505 thou/uL (130-400); RBC Distribution Width 13.6 % (11.5-14.5); Red Blood Cell (RBC) Count 3.06 mill/uL (4.70-6.10); White Blood Cell (WBC) Count 7.4 thou/uL (4.8-10.8)
[2020-04-21 05:48] LABS: Anion Gap 13 mmol/L (10-20); BUN (Urea Nitrogen) 10 mg/dL (8.4-25.7); Calc. Creatinine Clearance 82 mL/min (70-130); Calcium 7.9 mg/dL (7.8-10.44); Carbon Dioxide 27 mmol/L (23-31); Chloride 104 mmol/L (98-107); Glucose 120 mg/dL (83-110); Sodium 141 mmol/L (136-145)
[2020-04-21 05:55] LABS: Potassium 2.9 mmol/L (3.5-5.1)
[2020-04-21] MEDS ORDERED: Potassium Chloride 20 MEQ in Premix Bag 1 BAG IVPB SCH (06:15)
[2020-04-21] MEDS ORDERED: Potassium Bicarbonate/Cit Ac 20 MEQ TAB PER TUBE SCH ×2 (06:30→08:45)
--- NOTE | 2020-04-21 08:44 | PDOC.HOSPP ---
- Subjective Encounter Date: 04/21/20 Subjective: The patient denies any new complaints today. Bowel movements were reported. - Objective Vital Signs & Weight: Vital Signs (12 hours) Temp Pulse Resp BP Pulse Ox 04/21/20 07:49 98.1 F 86 16 95/51 L 94 L 04/21/20 07:08 83 20 04/21/20 04:00 98.3 F 105 H 16 91/53 L 93 L 04/20/20 23:45 97.7 F 79 15 105/58 L 100 04/20/20 23:28 98 04/20/20 20:49 96 Weight Admit Weight 136 lb Weight 136 lb Most Recent Monitor Data Heart Rate from ECG 92 NIBP 108/74 NIBP BP-Mean 85 Respiration from ECG 26 SpO2 100 I&O: 04/20/20 04/21/20 04/22/20 06:59 06:59 06:59 Intake Total 2560 3585 Output Total 702 650 Balance 1858 2935 Result Diagrams: 04/21/20 04:30 04/21/20 04:30 Hospitalist ROS - Medication Medications: Active Medications Generic Name Dose Route Start Last Admin Trade Name Freq PRN Reason Stop Dose Admin Acetaminophen 650 mg 04/10/20 17:38 04/11/20 23:57 Acetaminophen 650 Mg Suppository [place] 650 mg Q4H PRN Administration Headache/Fever/Mild Pain (1-3) Albuterol/Ipratropium 3 ml 04/10/20 19:00 04/21/20 07:08 Ipratropium/Albuterol Sulfate 3 Ml Neb NEB 3 ml [id number] AILIN Administration Atorvastatin Calcium 40 mg 04/14/20 21:00 04/20/20 21:31 Atorvastatin Calcium 40 Mg Tab PO 40 mg HS AILIN Administration Clopidogrel Bisulfate 75 mg 04/16/20 09:00 04/20/20 09:49 Clopidogrel Bisulfate 75 Mg Tab PO 75 mg DAILY AILIN Administration Heparin Sodium (Porcine) 5,000 units 04/10/20 21:00 04/20/20 21:31 Heparin 5,000 Units/Ml Vial SC 5,000 units BID AILIN Administration Levetiracetam 750 mg/ Sodium 107.5 mls @ 215 mls/hr 04/13/20 21:00 04/20/20 21:31 Chloride IVPB 107.5 mls BID AILIN Administration Clindamycin Phosphate/Dextrose 50 mls @ 100 mls/hr 04/17/20 22:00 04/21/20 04:44 600 mg/ Device IVPB 50 mls 0400,1000,1600,2200 AILIN Administration Dextrose/Water 1,000 mls @ 100 mls/hr 04/20/20 09:30 04/20/20 21:32 D5w IV 1,000 mls .Q10H AILIN Administration Potassium Chloride 20 meq/ 100 mls @ 50 mls/hr 04/21/20 06:15 04/21/20 06:36 Device IVPB 04/21/20 10:00 100 mls NOW AILIN Administration Loperamide HCl 2 mg 04/20/20 19:40 04/20/20 21:33 Loperamide Hcl 1 Mg/7.5 Ml Udcup PO 2 mg Q4H PRN Administration Diarrhea/Loose Stools Pantoprazole Sodium 40 mg 04/18/20 09:00 04/20/20 09:50 Pantoprazole 40 Mg Granules Packet PO 40 mg DAILY AILIN Administration Potassium Bicarbonate/Citric Acid 40 meq 04/21/20 06:30 04/21/20 06:35 Potassium Bicarbonate/Cit Ac 20 Meq Tab PER TUBE 04/21/20 09:00 40 meq NOW AILIN Administration Sodium Chloride 10 ml 04/12/20 21:00 04/20/20 21:32 Flush - Normal Saline 10 Ml Syringe IVF 10 ml Q12HR AILIN Administration - Exam General Appearance: awake alert ENT: normocephalic atraumatic Neck: supple, no JVD Heart: RRR Respiratory: normal chest expansion, no tachypnea Gastrointestinal: soft Neurological: cranial nerve grossly intact Hosp A/P (1) Embolic stroke Code(s): I63.9 - CEREBRAL INFARCTION, UNSPECIFIED Status: Acute (2) Hypernatremia Code(s): E87.0 - HYPEROSMOLALITY AND HYPERNATREMIA Status: Acute (3) Rhabdomyolysis Code(s): M62.82 - RHABDOMYOLYSIS Status: Acute Qualifiers: Rhabdomyolysis type: non-traumatic Qualified Code(s): M62.82 - Rhabdomyolysis (4) Sacral decubitus ulcer Code(s): L89.159 - PRESSURE ULCER OF SACRAL REGION, UNSPECIFIED STAGE Status: Acute Qualifiers: Pressure injury stage: stage 3 Qualified Code(s): L89.153 - Pressure ulcer of sacral region, stage 3 (5) Sepsis Code(s): A41.9 - SEPSIS, UNSPECIFIED ORGANISM Status: Acute Qualifiers: Sepsis type: sepsis due to unspecified organism Sepsis acute organ dysfunction status: with acute organ dysfunction Severe sepsis acute organ dysfunction type: acute renal failure (6) WYATT (acute kidney injury) Code(s): N17.9 - ACUTE KIDNEY FAILURE, UNSPECIFIED Status: Resolved (7) Dementia Code(s): F03.90 - UNSPECIFIED DEMENTIA WITHOUT BEHAVIORAL DISTURBANCE Status: Chronic Qualifiers: Dementia type: Alzheimer's disease - Plan This is a 70-year-old male with past medical history of dementia, CVA, coronary artery disease, hypertension, and hyperlipidemia who was found unresponsive at home. The patient was down for unknown time and presented with acute renal failure, metabolic acidosis, rhabdomyolysis, and sacral decubitus ulcer. He was admitted to the [facility] and initially managed for sepsis and possible pneumonia. MRI of the brain showed multifocal acute or subacute infarctions in multiple vascular territories suggestive of an embolic source. Echocardiogram showed pr eserved EF with no intravascular thrombi. EEG showed sharp activity emanating from temporal lobe. The patient was started on Keppra. He is now on aspirin and clopidogrel per cardiology and neurology recommendations. He failed his swallow evaluation and a PEG tube was placed by GI. He seems to be tolerating his tube feeding. His recent hospital days has been complicated by ocular disturbances and diarrhea. C. difficile test was negative and electrolytes are being corrected. Currently on D5W for hypernatremia which appears to be resolved. I will change the fluids to D5 NS at a lower rate. Acute kidney injury and rhabdomyolysis have resolved.
[2020-04-21] MEDS: Metamucil PACK PER TUBE SCH (09:01)
[2020-04-21] MEDS: Heparin 5,000 UNITS/ML VIAL SC SCH ×2 (09:01→19:36)
[2020-04-21] MEDS: Clopidogrel Bisulfate 75 MG TAB PO SCH (09:01)
[2020-04-21] MEDS: Pantoprazole 40 MG GRANULES PACKET PO SCH (09:01)
[2020-04-21] MEDS: Aspirin 325 MG TAB PO SCH (09:01)
[2020-04-21] MEDS: Dextrose 5% in Water 1,000 ML IV SCH (12:40)
--- NOTE | 2020-04-21 16:23 | PDOC.NEUPN ---
- Subjective Encounter Date: 04/21/20 Subjective: Mr. Del Rosario looks much better today. He is alert and oriented to person place and time. - Objective Vital Signs & Weight: Vital Signs (12 hours) Temp Pulse Resp BP BP Pulse Ox 04/21/20 15:27 98.2 F 80 16 115/56 L 96 04/21/20 13:24 76 20 04/21/20 11:58 98 F 78 16 98/56 L 93 L 04/21/20 10:00 105/59 L 04/21/20 07:49 98.1 F 86 16 95/51 L 94 L 04/21/20 07:08 83 20 Weight Admit Weight 136 lb Weight 136 lb Most Recent Monitor Data Heart Rate from ECG 92 NIBP 108/74 NIBP BP-Mean 85 Respiration from ECG 26 SpO2 100 I&O: 04/20/20 04/21/20 04/22/20 06:59 06:59 06:59 Intake Total 2560 3585 Output Total 702 650 Balance 1858 2935 Result Diagrams: 04/21/20 04:30 04/21/20 04:30 Radiology Reviewed by me: Yes EKG Reviewed by me: Yes ROS - Review of Systems Gastrointestinal: denies: nausea, vomiting, abdominal pain, diarrhea, constipation, melena, hematochezia, other Genitourinary: denies: dysuria, frequency, incontinence, hematuria, retention, other Skin: denies: rash, lesions, regan, bruising, other Neurological: reports: weakness, numbness, confusion - Medication Medications: Active Medications Generic Name Dose Route Start Last Admin Trade Name Freq PRN Reason Stop Dose Admin Acetaminophen 650 mg 04/10/20 17:38 04/11/20 23:57 Acetaminophen 650 Mg Suppository [place] 650 mg Q4H PRN Administration Headache/Fever/Mild Pain (1-3) Albuterol/Ipratropium 3 ml 04/10/20 19:00 04/21/20 13:24 Ipratropium/Albuterol Sulfate 3 Ml Neb NEB 3 ml [id number] AILIN Administration Aspirin 325 mg 04/21/20 09:00 04/21/20 09:01 Aspirin 325 Mg Tab PO 325 mg DAILY AILIN Administration Atorvastatin Calcium 40 mg 04/14/20 21:00 04/20/20 21:31 Atorvastatin Calcium 40 Mg Tab PO 40 mg HS AILIN Administration Clopidogrel Bisulfate 75 mg 04/16/20 09:00 04/21/20 09:01 Clopidogrel Bisulfate 75 Mg Tab PO 75 mg DAILY AILIN Administration Heparin Sodium (Porcine) 5,000 units 04/10/20 21:00 04/21/20 09:01 Heparin 5,000 Units/Ml Vial SC 5,000 units BID AILIN Administration Levetiracetam 750 mg/ Sodium 107.5 mls @ 215 mls/hr 04/13/20 21:00 04/21/20 10:04 Chloride IVPB 107.5 mls BID AILIN Administration Clindamycin Phosphate/Dextrose 50 mls @ 100 mls/hr 04/17/20 22:00 04/21/20 09:01 600 mg/ Device IVPB 50 mls 0400,1000,1600,2200 AILIN Administration Loperamide HCl 2 mg 04/20/20 19:40 04/20/20 21:33 Loperamide Hcl 1 Mg/7.5 Ml Udcup PO 2 mg Q4H PRN Administration Diarrhea/Loose Stools Pantoprazole Sodium 40 mg 04/18/20 09:00 04/21/20 09:01 Pantoprazole 40 Mg Granules Packet PO 40 mg DAILY AILIN Administration Psyllium Hydrophilic Mucilloid 1 pk 04/21/20 09:00 04/21/20 09:01 Metamucil Pack PER TUBE 1 pk DAILY AILIN Administration Sodium Chloride 10 ml 04/12/20 21:00 04/21/20 09:02 Flush - Normal Saline 10 Ml Syringe IVF 10 ml Q12HR AILIN Administration - Exam General Appearance: awake alert Eye: PERRL ENT: normocephalic atraumatic Neck: supple Respiratory: CTAB Cardiovascular: RRR Gastrointestinal: soft Extremities: no cyanosis Neurological: no new deficit Musculoskeletal: normal tone, no muscle wasting PSYCH: normal affect, normal behavior, A&O x 3, oriented to person, oriented to place, oriented to time Results - Labs Result Diagrams: 04/21/20 04:30 04/21/20 04:30 Lab results: WBC 7.4 thou/uL (4.8-10.8) 04/21/20 04:30 Hgb 8.9 g/dL (14.0-18.0) L 04/21/20 04:30 Hct 27.8 % (42.0-52.0) L 04/21/20 04:30 MCV 90.9 fL (78.0-98.0) 04/21/20 04:30 Plt Count 505 thou/uL (130-400) H 04/21/20 04:30 Band Neuts % (Manual) 3 % (5-11) L 04/16/20 03:39 ABG pH 7.51 (7.35-7.45) H 04/10/20 16:10 ABG pCO2 29.2 mmHg (35.0-45.0) L 04/10/20 16:10 ABG pO2 54.9 mmHg (> 70.0) L* 04/10/20 16:10 VBG pH 7.46 (7.32-7.43) H 04/20/20 12:58 VBG pCO2 42.1 mmHg (42.0-51.0) 04/20/20 12:58 VBG pO2 40.8 mmHg (35.0-45.0) 04/20/20 12:58 Sodium 141 mmol/L (136-145) 04/21/20 04:30 Potassium 2.9 mmol/L (3.5-5.1) L* 04/21/20 04:30 Chloride 104 mmol/L (98-107) 04/21/20 04:30 Carbon Dioxide 27 mmol/L (23-31) 04/21/20 04:30 BUN 10 mg/dL (8.4-25.7) 04/21/20 04:30 Creatinine 0.72 mg/dL (0.7-1.3) 04/21/20 04:30 Glucose 120 mg/dL (83-110) H 04/21/20 04:30 Lactic Acid 2.0 mmol/L (0.5-2.2) 04/13/20 03:49 Calcium 7.9 mg/dL (7.8-10.44) 04/21/20 04:30 Total Bilirubin 1.2 mg/dL (0.2-1.2) 04/13/20 03:49 AST 72 U/L (5-34) H 04/13/20 03:49 ALT 31 U/L (8-55) 04/13/20 03:49 Alkaline Phosphatase 53 U/L (40-110) 04/13/20 03:49 Ammonia 38 umol/L (18-72) 04/10/20 16:49 Creatine Kinase 912 U/L (30-200) H 04/13/20 03:49 CK-MB (CK-2) 16.6 ng/mL (0-6.6) H* 04/10/20 16:49 Troponin I 0.148 ng/mL (< 0.028) H 04/10/20 22:49 C-Reactive Protein 29.71 mg/dL (= or < 0.5) H 04/13/20 03:49 B-Natriuretic Peptide 38.9 pg/mL (0-100) 04/10/20 16:49 Serum Total Protein 5.6 g/dL (5.8-8.1) L 04/13/20 03:49 Albumin 2.5 g/dL (3.4-4.8) L 04/13/20 03:49 Lipase 51 U/L (8-78) 04/10/20 16:49 Urine Ketones 20 mg/dL (Negative) A 04/10/20 15:40 Urine Blood 3+ (Negative) A 04/10/20 15:40 Urine Nitrite Negative (Negative) 04/10/20 15:40 Ur Leukocyte Esterase Negative Rafael/uL (Negative) 04/10/20 15:40 Urine RBC 7-10 HPF (0-3) A 04/10/20 15:40 Urine WBC 0-3 HPF (0-3) 04/10/20 15:40 Ur Squamous Epith Cells 0-3 HPF (0-3) 04/10/20 15:40 Urine Bacteria Rare-Few HPF (None Seen) 04/10/20 15:40 - Radiology Interpretation MRI - head Additional Comment: MRI of the head was positive for multiple tiny lacunar infarcts in various vascular distribution PN A/P (1) Embolic stroke Code(s): I63.9 - CEREBRAL INFARCTION, UNSPECIFIED Status: Acute (2) Hypernatremia Code(s): E87.0 - HYPEROSMOLALITY AND HYPERNATREMIA Status: Acute (3) Rhabdomyolysis Code(s): M62.82 - RHABDOMYOLYSIS Status: Acute Qualifiers: Rhabdomyolysis type: non-traumatic Qualified Code(s): M62.82 - Rhabdomyolysis (4) Sacral decubitus ulcer Code(s): L89.159 - PRESSURE ULCER OF SACRAL REGION, UNSPECIFIED STAGE Status: Acute Qualifiers: Pressure injury stage: stage 3 Qualified Code(s): L89.153 - Pressure ulcer of sacral region, stage 3 (5) Sepsis Code(s): A41.9 - SEPSIS, UNSPECIFIED ORGANISM Status: Acute Qualifiers: Sepsis type: sepsis due to unspecified organism Sepsis acute organ dys function status: with acute organ dysfunction Severe sepsis acute organ d ysfunction type: acute renal failure (6) Toxic metabolic encephalopathy Code(s): G92 - TOXIC ENCEPHALOPATHY Status: Acute (7) WYATT (acute kidney injury) Code(s): N17.9 - ACUTE KIDNEY FAILURE, UNSPECIFIED Status: Resolved (8) Lactic acidosis Code(s): E87.2 - ACIDOSIS Status: Resolved (9) Dehydration Code(s): E86.0 - DEHYDRATION Status: Acute (10) Orthostatic hypotension Code(s): I95.1 - ORTHOSTATIC HYPOTENSION Status: Acute (11) Syncope Code(s): R55 - SYNCOPE AND COLLAPSE Status: Acute (12) TIA (transient ischemic attack) Status: Acute (13) Dementia Code(s): F03.90 - UNSPECIFIED DEMENTIA WITHOUT BEHAVIORAL DISTURBANCE Status: Chronic Qualifiers: Dementia type: Alzheimer's disease (14) Normocytic anemia Code(s): D64.9 - ANEMIA, UNSPECIFIED Status: Chronic - Plan Daily Plan: PT/OT, speech therapy, DVT proph w/SCDs Mr. Del Rosario is a 70-year-old male who presented with altered mental status is much improved today and patient is oriented to his name, place hospital and also the year 2020 which is marked improvement since admission.. Altered mental status seems to be multifactorial due to metabolic, infectious and intracranial etiologies. MRI of the brain consistent with acute infarction which seems cardioembolic since multiple vascular territories were involved. Cardiology is on board and appreciate their input. EEG reviewed which was consistent with sharps emanating from the left temporal lobe. Repeat EEG did not show any electrographic seizures but was consistent with left temporal epilepsy . EEG was repeated because of concern about herpes since herpes encephalitis has predilection for temporal lobe seizures. Continue Keppra 500 mg twice daily. Ativan 2 mg IV for seizure greater than 2 minutes. Neurochecks every 4 hours. Continue to observe seizure precautions. Continue aspirin, Plavix and high intensity statin for secondary stroke prevention. Plavix was added after discussion with cardiology since patient was already on aspirin but [facility] records. Patient has Linq recorder which has been interrogated by cardiology. Continue home medications. Strict control of blood pressure and blood glucose. Continue medical management per primary team PT/OT/speech Case management consult regarding discharge planning. Plan discussed with the nursing staff.
[2020-04-21] MEDS: Dextrose 5 % And 0.9 % NaCl 1,000 ML IV SCH (16:55)
[2020-04-21] MEDS: Atorvastatin Calcium 40 MG TAB PO SCH (19:36)
[2020-04-22] MEDS: Clindamycin/D5W 600 MG in Premix Bag 1 BAG IVPB SCH ×3 (03:47→16:54)
[2020-04-22 05:11] LABS: Anion Gap 12 mmol/L (10-20); BUN (Urea Nitrogen) 9 mg/dL (8.4-25.7); Calc. Creatinine Clearance 83 mL/min (70-130); Calcium 7.9 mg/dL (7.8-10.44); Carbon Dioxide 30 mmol/L (23-31); Chloride 102 mmol/L (98-107); Glucose 118 mg/dL (83-110); Potassium 3.2 mmol/L (3.5-5.1); Sodium 141 mmol/L (136-145)
[2020-04-22] MEDS ORDERED: Potassium Chloride 20 MEQ TAB PO SCH (09:15)
[2020-04-22] MEDS: Clopidogrel Bisulfate 75 MG TAB PO SCH (09:24)
[2020-04-22] MEDS: Pantoprazole 40 MG GRANULES PACKET PO SCH (09:24)
[2020-04-22] MEDS: Aspirin 325 MG TAB PO SCH (09:24)
[2020-04-22] MEDS: Heparin 5,000 UNITS/ML VIAL SC SCH ×2 (09:25→22:19)
[2020-04-22] MEDS: Metamucil PACK PER TUBE SCH (10:55)
[2020-04-22] MEDS: Dextrose 5 % And 0.9 % NaCl 1,000 ML IV SCH (11:44)
--- NOTE | 2020-04-22 13:53 | PDOC.HOSPP ---
- Subjective Encounter Date: 04/22/20 Subjective: The patient remained stable today. He had a bowel movement. - Objective Vital Signs & Weight: Vital Signs (12 hours) Temp Pulse Resp BP Pulse Ox 04/22/20 13:20 89 16 04/22/20 11:42 98.6 F 76 20 112/66 94 L 04/22/20 08:05 98.1 F 85 20 111/57 L 96 04/22/20 06:34 74 16 04/22/20 03:40 97.4 F L 90 18 95/50 L 95 Weight Admit Weight 136 lb Weight 136 lb Most Recent Monitor Data Heart Rate from ECG 92 NIBP 108/74 NIBP BP-Mean 85 Respiration from ECG 26 SpO2 100 I&O: 04/21/20 04/22/20 04/23/20 06:59 06:59 06:59 Intake Total 3585 815 Output Total 650 750 Balance 2935 65 Result Diagrams: 04/21/20 04:30 04/22/20 04:21 Hospitalist ROS - Medication Medications: Active Medications Generic Name Dose Route Start Last Admin Trade Name Freq PRN Reason Stop Dose Admin Acetaminophen 650 mg 04/10/20 17:38 04/11/20 23:57 Acetaminophen 650 Mg Suppository [place] 650 mg Q4H PRN Administration Headache/Fever/Mild Pain (1-3) Albuterol/Ipratropium 3 ml 04/10/20 19:00 04/22/20 13:20 Ipratropium/Albuterol Sulfate 3 Ml Neb NEB 3 ml [id number] AILIN Administration Aspirin 325 mg 04/21/20 09:00 04/22/20 09:24 Aspirin 325 Mg Tab PO 325 mg DAILY AILIN Administration Atorvastatin Calcium 40 mg 04/14/20 21:00 04/21/20 19:36 Atorvastatin Calcium 40 Mg Tab PO 40 mg HS AILIN Administration Clopidogrel Bisulfate 75 mg 04/16/20 09:00 04/22/20 09:24 Clopidogrel Bisulfate 75 Mg Tab PO 75 mg DAILY AILIN Administration Heparin Sodium (Porcine) 5,000 units 04/10/20 21:00 04/22/20 09:25 Heparin 5,000 Units/Ml Vial SC 5,000 units BID AILIN Administration Levetiracetam 750 mg/ Sodium 107.5 mls @ 215 mls/hr 04/13/20 21:00 04/22/20 09:26 Chloride IVPB 107.5 mls BID AILIN Administration Clindamycin Phosphate/Dextrose 50 mls @ 100 mls/hr 04/17/20 22:00 04/22/20 10:55 600 mg/ Device IVPB 50 mls 0400,1000,1600,2200 AILIN Administration Dextrose/Sodium Chloride 1,000 mls @ 50 mls/hr 04/21/20 14:45 04/22/20 11:44 D5 0.9% Ns IV 1,000 mls .Q20H AILIN Administration Loperamide HCl 2 mg 04/20/20 19:40 04/20/20 21:33 Loperamide Hcl 1 Mg/7.5 Ml Udcup PO 2 mg Q4H PRN Administration Diarrhea/Loose Stools Pantoprazole Sodium 40 mg 04/18/20 09:00 04/22/20 09:24 Pantoprazole 40 Mg Granules Packet PO 40 mg DAILY AILIN Administration Psyllium Hydrophilic Mucilloid 1 pk 04/21/20 09:00 04/22/20 10:55 Metamucil Pack PER TUBE 1 pk DAILY AILIN Administration Sodium Chloride 10 ml 04/12/20 21:00 04/22/20 09:27 Flush - Normal Saline 10 Ml Syringe IVF 10 ml Q12HR AILIN Administration - Exam General Appearance: awake alert ENT: normocephalic atraumatic Neck: supple Heart: RRR Respiratory: normal chest expansion, no tachypnea Gastrointestinal: soft Extremities: no cyanosis, no clubbing Hosp A/P (1) Embolic stroke Code(s): I63.9 - CEREBRAL INFARCTION, UNSPECIFIED Status: Acute (2) Hypernatremia Code(s): E87.0 - HYPEROSMOLALITY AND HYPERNATREMIA Status: Acute (3) Rhabdomyolysis Code(s): M62.82 - RHABDOMYOLYSIS Status: Acute Qualifiers: Rhabdomyolysis type: non-traumatic Qualified Code(s): M62.82 - Rhabdo myolysis (4) Sacral decubitus ulcer Code(s): L89.159 - PRESSURE ULCER OF SACRAL REGION, UNSPECIFIED STAGE Status: Acute Qualifiers: Pressure injury stage: stage 3 Qualified Code(s): L89.153 - Pressure ulcer of sacral region, stage 3 (5) Sepsis Code(s): A41.9 - SEPSIS, UNSPECIFIED ORGANISM Status: Acute Qualifiers: Sepsis type: sepsis due to unspecified organism Sepsis acute organ dysfunction status: with acute organ dysfunction Severe sepsis acute organ dysfunction type: acute renal failure (6) WYATT (acute kidney injury) Code(s): N17.9 - ACUTE KIDNEY FAILURE, UNSPECIFIED Status: Resolved (7) Dementia Code(s): F03.90 - UNSPECIFIED DEMENTIA WITHOUT BEHAVIORAL DISTURBANCE Status: Chronic Qualifiers: Dementia type: Alzheimer's disease - Plan This is a 70-year-old male with past medical history of dementia, CVA, coronary artery disease, hypertension, and hyperlipidemia who was found unresponsive at home. The patient was down for unknown time and presented with acute renal failure, metabolic acidosis, rhabdomyolysis, and sacral decubitus ulcer. He was admitted to the [facility] and initially managed for sepsis and possible pneumonia. MRI of the brain showed multifocal acute or subacute infarctions in multiple vas cular territories suggestive of an embolic source. Echocardiogram showed preserved EF with no intravascular thrombi. EEG showed sharp activity emanating from temporal lobe. The patient was started on Keppra. He is now on aspirin and clopidogrel per cardiology and neurology recommendations. He failed his swallow evaluation and a PEG tube was placed by GI. He seems to be tolerating his tube feeding. His recent hospital days has been complicated by electrolyte disturbances and diarrhea. C. difficile test was negative and electrolytes are being corrected. His bowel movements have been more formed today. Continue NS D5W at 50 mL/h. Acute kidney injury and rhabdomyolysis have resolved. His mental status has improved per his family and they are wondering if a repeat swallow evaluation can be done to determine if the patient needs the PEG tube.
[2020-04-22] MEDS: Atorvastatin Calcium 40 MG TAB PO SCH (22:20)
[2020-04-23] MEDS: Clindamycin/D5W 600 MG in Premix Bag 1 BAG IVPB SCH ×2 (01:28→05:52)
[2020-04-23 05:08] LABS: #Eosinphils 0.1 thou/uL (0.0-0.7); #Lymphocytes 1.2 thou/uL (1.20-3.40); #Monocytes 0.4 thou/uL (0.11-0.59); #Neutrophils 3.7 thou/uL (1.40-6.50); %Basophils 0.6 % (0.0-1.0); %Eosinophils 1.6 % (0.0-10.0); %Lymphocytes 21.9 % (21.0-51.0); %Monocytes 7.9 % (0.0-10.0); %Neutrophils 68.2 % (42.0-75.0); Hemoglobin 9.3 g/dL (14.0-18.0); Mean Corpuscular HGB CONC 32.9 g/dL (32.0-36.0); Mean Corpuscular Hemoglobin 29.3 pg (27.0-31.0); Mean Corpuscular Volume 89.2 fL (78.0-98.0); Mean Platelet Volume 7.7 fL (7.4-10.4); Platelet Count 490 thou/uL (130-400); RBC Distribution Width 13.4 % (11.5-14.5); Red Blood Cell (RBC) Count 3.17 mill/uL (4.70-6.10); White Blood Cell (WBC) Count 5.4 thou/uL (4.8-10.8)
[2020-04-23 05:21] LABS: Anion Gap 14 mmol/L (10-20); BUN (Urea Nitrogen) 8 mg/dL (8.4-25.7); Calc. Creatinine Clearance 81 mL/min (70-130); Calcium 7.7 mg/dL (7.8-10.44); Carbon Dioxide 26 mmol/L (23-31); Chloride 104 mmol/L (98-107); Glucose 111 mg/dL (83-110); Potassium 3.2 mmol/L (3.5-5.1); Sodium 141 mmol/L (136-145)
[2020-04-23] MEDS ORDERED: Potassium Chloride 20 MEQ TAB PO SCH (08:45)
[2020-04-23] MEDS: Heparin 5,000 UNITS/ML VIAL SC SCH (09:57)
[2020-04-23] MEDS: Loperamide HCl 1 MG/7.5 ML UDCUP PO PRN ×2 (10:11→17:22)
[2020-04-23] MEDS: Pantoprazole 40 MG GRANULES PACKET PO SCH (10:12)
[2020-04-23] MEDS: Clopidogrel Bisulfate 75 MG TAB PO SCH (10:12)
[2020-04-23] MEDS: Aspirin 325 MG TAB PO SCH (10:12)
[2020-04-23] MEDS: Metamucil PACK PER TUBE SCH (10:15)
--- NOTE | 2020-04-23 12:53 | PDOC.NEUPN ---
- Subjective Encounter Date: 04/23/20 Subjective: Mr. Del Rosario is alert and oriented x3. The nursing staff did complain in termittent focal jerking of the upper and lower extremities. - Objective Vital Signs & Weight: Vital Signs (12 hours) Temp Pulse Pulse Resp BP BP Pulse Ox 04/23/20 12:00 97.8 F 90 16 95 04/23/20 10:30 125 H 127/92 H 04/23/20 07:43 97.4 F L 98 18 113/66 95 04/23/20 06:31 82 20 04/23/20 04:00 98.2 F 89 16 132/66 96 Weight Admit Weight 136 lb Weight 136 lb Most Recent Monitor Data Heart Rate from ECG 92 NIBP 108/74 NIBP BP-Mean 85 Respiration from ECG 26 SpO2 100 I&O: 04/22/20 04/23/20 04/24/20 06:59 06:59 06:59 Intake Total 815 660 Output Total 750 1125 Balance 65 -465 Result Diagrams: 04/23/20 04:34 04/23/20 04:34 Radiology Reviewed by me: Yes EKG Reviewed by me: Yes ROS - Review of Systems Constitutional: denies: fever, chills, sweats, weakness, malaise, other Eyes: denies: pain, vision change, conjunctivae inflammation, eyelid inflammation, redness, other Gastrointestinal: denies: nausea, vomiting, abdominal pain, diarrhea, constipation, melena, hematochezia, other Genitourinary: denies: dysuria, frequency, incontinence, hematuria, retention, other Musculoskeletal: denies: neck pain, shoulder pain, arm pain, back pain, hand pain, leg pain, foot pain, other - Medication Medications: Active Medications Generic Name Dose Route Start Last Admin Trade Name Freq PRN Reason Stop Dose Admin Acetaminophen 650 mg 04/10/20 17:38 04/11/20 23:57 Acetaminophen 650 Mg Suppository [place] 650 mg Q4H PRN Administration Headache/Fever/Mild Pain (1-3) Albuterol/Ipratropium 3 ml 04/10/20 19:00 04/23/20 06:31 Ipratropium/Albuterol Sulfate 3 Ml Neb NEB 3 ml [id number] AILIN Administration Aspirin 325 mg 04/21/20 09:00 04/23/20 10:12 Aspirin 325 Mg Tab PO 325 mg DAILY AILIN Administration Atorvastatin Calcium 40 mg 04/14/20 21:00 04/22/20 22:20 Atorvastatin Calcium 40 Mg Tab PO 40 mg HS AILIN Administration Clopidogrel Bisulfate 75 mg 04/16/20 09:00 04/23/20 10:12 Clopidogrel Bisulfate 75 Mg Tab PO 75 mg DAILY AILIN Administration Heparin Sodium (Porcine) 5,000 units 04/10/20 21:00 04/23/20 09:57 Heparin 5,000 Units/Ml Vial SC 5,000 units BID AILIN Administration Levetiracetam 750 mg/ Sodium 107.5 mls @ 215 mls/hr 04/13/20 21:00 04/23/20 09:57 Chloride IVPB 107.5 mls BID AILIN Administration Dextrose/Sodium Chloride 1,000 mls @ 50 mls/hr 04/21/20 14:45 04/22/20 11:44 D5 0.9% Ns IV 1,000 mls .Q20H AILIN Administration Loperamide HCl 2 mg 04/20/20 19:40 04/23/20 10:11 Loperamide Hcl 1 Mg/7.5 Ml Udcup PO 2 mg Q4H PRN Administration Diarrhea/Loose Stools Pantoprazole Sodium 40 mg 04/18/20 09:00 04/23/20 10:12 Pantoprazole 40 Mg Granules Packet PO 40 mg DAILY AILIN Administration Psyllium Hydrophilic Mucilloid 1 pk 04/21/20 09:00 04/23/20 10:15 Metamucil Pack PER TUBE 1 pk DAILY AILIN Administration Sodium Chloride 10 ml 04/12/20 21:00 04/22/20 22:20 Flush - Normal Saline 10 Ml Syringe IVF 10 ml Q12HR AILIN Administration - Exam General Appearance: awake alert Eye: PERRL ENT: normocephalic atraumatic Neck: supple Respiratory: CTAB Cardiovascular: RRR Gastrointestinal: soft Extremities: no cyanosis Skin: normal turgor Neurological: no new deficit Musculoskeletal: normal tone, no muscle wasting PSYCH: normal affect, normal behavior, A&O x 3 Results - Labs Result Diagrams: 04/23/20 04:34 04/23/20 04:34 Lab results: WBC 5.4 thou/uL (4.8-10.8) 04/23/20 04:34 Hgb 9.3 g/dL (14.0-18.0) L 04/23/20 04:34 Hct 28.3 % (42.0-52.0) L 04/23/20 04:34 MCV 89.2 fL (78.0-98.0) 04/23/20 04:34 Plt Count 490 thou/uL (130-400) H 04/23/20 04:34 Neutrophils % 68.2 % (42.0-75.0) 04/23/20 04:34 Band Neuts % (Manual) 3 % (5-11) L 04/16/20 03:39 ABG pH 7.51 (7.35-7.45) H 04/10/20 16:10 ABG pCO2 29.2 mmHg (35.0-45.0) L 04/10/20 16:10 ABG pO2 54.9 mmHg (> 70.0) L* 04/10/20 16:10 VBG pH 7.46 (7.32-7.43) H 04/20/20 12:58 VBG pCO2 42.1 mmHg (42.0-51.0) 04/20/20 12:58 VBG pO2 40.8 mmHg (35.0-45.0) 04/20/20 12:58 Sodium 141 mmol/L (136-145) 04/23/20 04:34 Potassium 3.2 mmol/L (3.5-5.1) L 04/23/20 04:34 Chloride 104 mmol/L (98-107) 04/23/20 04:34 Carbon Dioxide 26 mmol/L (23-31) 04/23/20 04:34 BUN 8 mg/dL (8.4-25.7) L 04/23/20 04:34 Creatinine 0.73 mg/dL (0.7-1.3) 04/23/20 04:34 Glucose 111 mg/dL (83-110) H 04/23/20 04:34 Lactic Acid 2.0 mmol/L (0.5-2.2) 04/13/20 03:49 Calcium 7.7 mg/dL (7.8-10.44) L 04/23/20 04:34 Total Bilirubin 1.2 mg/dL (0.2-1.2) 04/13/20 03:49 AST 72 U/L (5-34) H 04/13/20 03:49 ALT 31 U/L (8-55) 04/13/20 03:49 Alkaline Phosphatase 53 U/L (40-110) 04/13/20 03:49 Ammonia 38 umol/L (18-72) 04/10/20 16:49 Creatine Kinase 912 U/L (30-200) H 04/13/20 03:49 CK-MB (CK-2) 16.6 ng/mL (0-6.6) H* 04/10/20 16:49 Troponin I 0.148 ng/mL (< 0.028) H 04/10/20 22:49 C-Reactive Protein 29.71 mg/dL (= or < 0.5) H 04/13/20 03:49 B-Natriuretic Peptide 38.9 pg/mL (0-100) 04/10/20 16:49 Serum Total Protein 5.6 g/dL (5.8-8.1) L 04/13/20 03:49 Albumin 2.5 g/dL (3.4-4.8) L 04/13/20 03:49 Lipase 51 U/L (8-78) 04/10/20 16:49 Urine Ketones 20 mg/dL (Negative) A 04/10/20 15:40 Urine Blood 3+ (Negative) A 04/10/20 15:40 Urine Nitrite Negative (Negative) 04/10/20 15:40 Ur Leukocyte Esterase Negative Rafael/uL (Negative) 04/10/20 15:40 Urine RBC 7-10 HPF (0-3) A 04/10/20 15:40 Urine WBC 0-3 HPF (0-3) 04/10/20 15:40 Ur Squamous Epith Cells 0-3 HPF (0-3) 04/10/20 15:40 Urine Bacteria Rare-Few HPF (None Seen) 04/10/20 15:40 - Radiology Interpretation MRI - head Additional Comment: MRI of the brain was consistent with multiple acute tiny lacunar infarctions in multiple vascular distributions PN A/P (1) Embolic stroke Code(s): I63.9 - CEREBRAL INFARCTION, UNSPECIFIED Status: Acute (2) Hypernatremia Code(s): E87.0 - HYPEROSMOLALITY AND HYPERNATREMIA Status: Acute (3) Rhabdomyolysis Code(s): M62.82 - RHABDOMYOLYSIS Status: Acute Qualifiers: Rhabdomyolysis type: non-traumatic Qualified Code(s): M62.82 - Rhabdomyolysis (4) Sacral decubitus ulcer Code(s): L89.159 - PRESSURE ULCER OF SACRAL REGION, UNSPECIFIED STAGE Status: Acute Qualifiers: Pressure injury stage: stage 3 Qualified Code(s): L89.153 - Pressure ulcer of sacral region, stage 3 (5) Sepsis Code(s): A41.9 - SEPSIS, UNSPECIFIED ORGANISM Status: Acute Qualifiers: Sepsis type: sepsis due to unspecified organism Sepsis acute organ dysfunction status: with acute organ dysfunction Severe sepsis acute organ dysfunction type: acute renal failure (6) Toxic metabolic encephalopathy Code(s): G92 - TOXIC ENCEPHALOPATHY Status: Acute (7) WYATT (acute kidney injury) Code(s): N17.9 - ACUTE KIDNEY FAILURE, UNSPECIFIED Status: Resolved (8) Lactic acidosis Code(s): E87.2 - ACIDOSIS Status: Resolved (9) Dehydration Code(s): E86.0 - DEHYDRATION Status: Acute (10) Orthostatic hypotension Code(s): I95.1 - ORTHOSTATIC HYPOTENSION Status: Acute (11) Syncope Code(s): R55 - SYNCOPE AND COLLAPSE Status: Acute (12) TIA (transient ischemic attack) Status: Acute (13) Dementia Code(s): F03.90 - UNSPECIFIED DEMENTIA WITHOUT BEHAVIORAL DISTURBANCE Status: Chronic Qualifiers: Dementia type: Alzheimer's disease (14) Normocytic anemia Code(s): D64.9 - ANEMIA, UNSPECIFIED Status: Chronic - Plan Daily Plan: PT/OT, speech therapy, DVT proph w/SCDs Mr. Del Rosario is a 70-year-old male who presented with altered mental status is much improved today and patient is oriented to his name, place hospital and also the year 2020 which is marked improvement since admission.. Altered mental status seems to be multifactorial due to metabolic, infectious and intracranial etiologies. Patient mental status is much improved but nursing staff has noticed intermittent focal jerking of the upper and lower extremities. We will repeat EEG today to see the extent of interictal epileptiform abnormalities since his prior EEGs were consistent with left temporal epilepsy. Further recommendations about the medication adjustment will depend on the results of the EEG testing. In the meantime continue Keppra 500 mg twice daily. Observe seizure precautions. Ativan 2 mg IV for seizure greater than 2 minutes. Neurochecks every 4 hours. MRI of the brain consistent with acute infarction which seems cardioembolic since multiple vascular territories were involved. Cardiology is on board and appreciate their input. Continue aspirin, Plavix and high intensity statin for secondary stroke prevention. Plavix was added after discussion with cardiology since patient was already on aspirin but assisted records. Patient has Linq recorder which has been interrogated by cardiology. Continue home medications. Strict control of blood pressure and blood glucose. Continue medical management per primary team PT/OT/speech Case management consult regarding discharge planning. Plan discussed with the nursing staff.
[2020-04-23] MEDS: Lactinex Tablet PO SCH (16:30)
[2020-04-23] MEDS: Dextrose 5 % And 0.9 % NaCl 1,000 ML IV SCH (17:28)
--- NOTE | 2020-04-23 18:01 | PDOC.HOSPP ---
- Subjective Encounter Date: 04/23/20 Subjective: No acute events overnight. Blood-tinged urine in the Myers catheter was reported. - Objective Vital Signs & Weight: Vital Signs (12 hours) Temp Pulse Pulse Resp BP BP Pulse Ox 04/23/20 15:47 98.5 F 75 16 128/66 98 04/23/20 12:00 97.8 F 90 16 95 04/23/20 10:30 125 H 127/92 H 04/23/20 07:43 97.4 F L 98 18 113/66 95 04/23/20 06:31 82 20 Weight Admit Weight 136 lb Weight 136 lb Most Recent Monitor Data Heart Rate from ECG 92 NIBP 108/74 NIBP BP-Mean 85 Respiration from ECG 26 SpO2 100 I&O: 04/22/20 04/23/20 04/24/20 06:59 06:59 06:59 Intake Total 815 660 Output Total 750 1125 Balance 65 -465 Result Diagrams: 04/23/20 04:34 04/23/20 04:34 Hospitalist ROS - Medication Medications: Active Medications Generic Name Dose Route Start Last Admin Trade Name Freq PRN Reason Stop Dose Admin Acetaminophen 650 mg 04/10/20 17:38 04/11/20 23:57 Acetaminophen 650 Mg Suppository MA 650 mg Q4H PRN Administration Headache/Fever/Mild Pain (1-3) Albuterol/Ipratropium 3 ml 04/10/20 19:00 04/23/20 13:49 Ipratropium/Albuterol Sulfate 3 Ml Neb NEB Not Given [id number] AILIN Aspirin 325 mg 04/21/20 09:00 04/23/20 10:12 Aspirin 325 Mg Tab PO 325 mg DAILY AILIN Administration Atorvastatin Calcium 40 mg 04/14/20 21:00 04/22/20 22:20 Atorvastatin Calcium 40 Mg Tab PO 40 mg HS AILIN Administration Clopidogrel Bisulfate 75 mg 04/16/20 09:00 04/23/20 10:12 Clopidogrel Bisulfate 75 Mg Tab PO 75 mg DAILY AILIN Administration Levetiracetam 750 mg/ Sodium 107.5 mls @ 215 mls/hr 04/13/20 21:00 04/23/20 09:57 Chloride IVPB 107.5 mls BID AILIN Administration Dextrose/Sodium Chloride 1,000 mls @ 50 mls/hr 04/21/20 14:45 04/23/20 17:28 D5 0.9% Ns IV 1,000 mls .Q20H AILIN Administration Loperamide HCl 2 mg 04/20/20 19:40 04/23/20 17:22 Loperamide Hcl 1 Mg/7.5 Ml Udcup PO 2 mg Q4H PRN Administration Diarrhea/Loose Stools Pantoprazole Sodium 40 mg 04/18/20 09:00 04/23/20 10:12 Pantoprazole 40 Mg Granules Packet PO 40 mg DAILY AILIN Administration Psyllium Hydrophilic Mucilloid 1 pk 04/21/20 09:00 04/23/20 10:15 Metamucil Pack PER TUBE 1 pk DAILY AILIN Administration Sodium Chloride 10 ml 04/12/20 21:00 04/23/20 17:28 Flush - Normal Saline 10 Ml Syringe IVF Not Given Q12HR AILIN - Exam General Appearance: awake alert ENT: normocephalic atraumatic Neck: supple Respiratory: normal chest expansion, no tachypnea Extremities: no cyanosis, no clubbing Neurological: cranial nerve grossly intact Hosp A/P (1) Embolic stroke Code(s): I63.9 - CEREBRAL INFARCTION, UNSPECIFIED Status: Acute (2) Hypernatremia Code(s): E87.0 - HYPEROSMOLALITY AND HYPERNATREMIA Status: Acute (3) Rhabdomyolysis Code(s): M62.82 - RHABDOMYOLYSIS Status: Acute Qualifiers: Rhabdomyolysis type: non-traumatic Qualified Code(s): M62.82 - Rhabdomyolysis (4) Sacral decubitus ulcer Code(s): L89.159 - PRESSURE ULCER OF SACRAL REGION, UNSPECIFIED STAGE Status: Acute Qualifiers: Pressure injury stage: stage 3 Qualified Code(s): L89.153 - Pressure ulcer of sacral region, stage 3 (5) Sepsis Code(s): A41.9 - SEPSIS, UNSPECIFIED ORGANISM Status: Acute Qualifiers: Sepsis type: sepsis due to unspecified organism Sepsis acute organ dysfunction status: with acute organ dysfunction Severe sepsis acute organ dysfunction type: acute renal failure (6) WYATT (acute kidney injury) Code(s): N17.9 - ACUTE KIDNEY FAILURE, UNSPECIFIED Status: Resolved (7) Dementia Code(s): F03.90 - UNSPECIFIED DEMENTIA WITHOUT BEHAVIORAL DISTURBANCE Status: Chronic Qualifiers: Dementia type: Alzheimer's disease - Plan This is a 70-year-old male with past medical history of dementia, CVA, coronary artery disease, hypertension, and hyperlipidemia who was found unresponsive at home. The patient was down for unknown time and presented with acute renal failure, metabolic acidosis, rhabdomyolysis, and sacral decubitus ulcer. He was admitted to the [facility] and initially managed for sepsis and possible pneumonia. MRI of the brain showed multifocal acute or subacute infarctions in multiple vascular territories suggestive of an embolic source. Echocardiogram showed preserved EF with no intravascular thrombi. EEG showed sharp activity emanating from temporal lobe. The patient was started on Keppra. He is now on aspirin and clopidogrel per cardiology and neurology recommendations. He failed his sw allow evaluation and a PEG tube was placed by GI. He seems to be tolerating his tube feeding. His recent hospital days has been complicated by electrolyte disturbances and diarrhea. C. difficile test was negative and electrolytes are being corrected. His bowel movements have been more formed recently. Continue NS D5W at 50 mL/h. Acute kidney injury and rhabdomyolysis have resolved. His mental status has improved per his family and they are wondering if a repeat swallow evaluation can be done to determine if the patient needs the PEG tube.Blood-tinged urine was reported. I will hold heparin for DVT prophylaxis and replace it with SCDs since the patient is already on dual antiplatelet t herapy and is at high risk of bleeding.
[2020-04-23] MEDS ORDERED: Sodium Bicarbonate Tab 325 MG TAB PER TUBE PRN (20:15)
[2020-04-23] MEDS ORDERED: Pancrelipase DR 12,000 1 CAP FS PRN (20:15)
--- NOTE | 2020-04-23 22:17 | PDOC.EEG ---
Neurology EEG Report - Report Report: This EEG was performed using 24 channel [employer] video digital EEG machine with 24 disc electrodes. This was an extended 2-hour 10 minutes of inpatient video EEG recording. Digital analysis of the EEG was done for Juanpablo and seizure detection which revealed abnormalities. Background: The posterior background rhythm was not observed. Hyperventilation: Not performed. Photic stimulation: Not performed. Sleep: No stage change was observed. Spells: Occasional twitching of the left upper and lower extremity associated with sharply contoured theta activity intermixed with spikes. EEG diagnosis: Intermittent irregular sharply contoured theta activity (right > Left ) intermi xed with spikes on the right seen during the recording. Absence of posterior background rhythm. Clinical interpretation: This EEG is consistent with interictal expression of partial epilepsy in the setting of focal cerebral dysfunction in the right cerebral hemisphere . There is also evidence of moderate generalized nonspecific cerebral dysfunction. No electrographic seizures seen during the recording.
[2020-04-23] MEDS: Atorvastatin Calcium 40 MG TAB PO SCH (23:52)
[2020-04-23] MEDS: Acetaminophen 325 MG TAB PO PRN (23:52)
[2020-04-24] MEDS: Loperamide HCl 1 MG/7.5 ML UDCUP PO PRN (04:55)
[2020-04-24 05:09] LABS: #Basophils 0.1 thou/uL (0.0-0.2); #Eosinphils 0.1 thou/uL (0.0-0.7); #Lymphocytes 1.6 thou/uL (1.20-3.40); #Monocytes 0.7 thou/uL (0.11-0.59); #Neutrophils 3.4 thou/uL (1.40-6.50); %Basophils 1.1 % (0.0-1.0); %Eosinophils 1.7 % (0.0-10.0); %Lymphocytes 27.5 % (21.0-51.0); %Monocytes 11.2 % (0.0-10.0); %Neutrophils 58.6 % (42.0-75.0); Hemoglobin 9.4 g/dL (14.0-18.0); Mean Corpuscular HGB CONC 32.2 g/dL (32.0-36.0); Mean Corpuscular Hemoglobin 28.7 pg (27.0-31.0); Mean Corpuscular Volume 89.1 fL (78.0-98.0); Mean Platelet Volume 7.9 fL (7.4-10.4); Platelet Count 485 thou/uL (130-400); RBC Distribution Width 13.4 % (11.5-14.5); Red Blood Cell (RBC) Count 3.29 mill/uL (4.70-6.10); White Blood Cell (WBC) Count 5.9 thou/uL (4.8-10.8)
[2020-04-24 05:34] LABS: Anion Gap 13 mmol/L (10-20); BUN (Urea Nitrogen) 7 mg/dL (8.4-25.7); Calc. Creatinine Clearance 81 mL/min (70-130); Calcium 7.9 mg/dL (7.8-10.44); Carbon Dioxide 26 mmol/L (23-31); Chloride 104 mmol/L (98-107); Glucose 94 mg/dL (83-110); Potassium 3.6 mmol/L (3.5-5.1); Sodium 139 mmol/L (136-145)
[2020-04-24] MEDS: levETIRAcetam in NS 1,000 MG in Premix Bag 1 BAG IVPB SCH ×2 (10:13→22:31)
[2020-04-24] MEDS: Lactinex Tablet PO SCH ×2 (10:14→16:39)
[2020-04-24] MEDS: Pantoprazole 40 MG GRANULES PACKET PO SCH (10:16)
[2020-04-24] MEDS: Aspirin 325 MG TAB PO SCH (10:16)
[2020-04-24] MEDS: Metamucil PACK PER TUBE SCH (10:16)
[2020-04-24] MEDS: Clopidogrel Bisulfate 75 MG TAB PO SCH (10:31)
--- NOTE | 2020-04-24 13:16 | PDOC.NEUPN ---
- Subjective Encounter Date: 04/24/20 Subjective: Focal jerking improved but still some twitching noted in the left upper and lower extremity. There is some interval worsening of EEG with spikes seen in the right cerebral hemisphere. Keppra dose increased to 1000 mg twice daily. - Objective Vital Signs & Weight: Vital Signs (12 hours) Temp Pulse Pulse Pulse Resp BP BP 04/24/20 11:25 98.6 F 102 H 18 04/24/20 10:58 102 H 69 122/62 117/70 04/24/20 07:31 98.1 F 105 H 18 04/24/20 07:21 89 16 04/24/20 05:27 04/24/20 04:00 98.2 F 86 16 BP Pulse Ox 04/24/20 11:25 112/62 96 04/24/20 10:58 04/24/20 07:31 106/62 95 04/24/20 07:21 95 04/24/20 05:27 111/56 L 04/24/20 04:00 97 Weight Admit Weight 136 lb Weight 136 lb Most Recent Monitor Data Heart Rate from ECG 92 NIBP 108/74 NIBP BP-Mean 85 Respiration from ECG 26 SpO2 100 I&O: 04/23/20 04/24/20 04/25/20 06:59 06:59 06:59 Intake Total 660 1267 215 Output Total 1125 1200 Balance -465 67 215 Result Diagrams: 04/24/20 04:38 04/24/20 04:38 Radiology Reviewed by me: Yes EKG Reviewed by me: Yes ROS - Review of Systems Respiratory: denies: cough, dry, shortness of breath, hemoptysis, SOB with excertion, pleuritic pain, sputum, wheezing, other Musculoskeletal: denies: neck pain, shoulder pain, arm pain, back pain, hand pain, leg pain, foot pain, other - Medication Medications: Active Medications Generic Name Dose Route Start Last Admin Trade Name Freq PRN Reason Stop Dose Admin Acetaminophen 650 mg 04/10/20 17:38 04/23/20 23:52 Acetaminophen 325 Mg Tab PO 650 mg Q4H PRN Administration Headache/Fever/Mild Pain (1-3) Acetaminophen 650 mg 04/10/20 17:38 04/11/20 23:57 Acetaminophen 650 Mg Suppository NC 650 mg Q4H PRN Administration Headache/Fever/Mild Pain (1-3) Acidophilus 1 tab 04/23/20 16:30 04/24/20 10:14 Lactinex Tablet PO 1 tab BID-AC AILIN Administration Albuterol/Ipratropium 3 ml 04/10/20 19:00 04/24/20 07:21 Ipratropium/Albuterol Sulfate 3 Ml Neb NEB 3 ml [id number] AILIN Administration Aspirin 325 mg 04/21/20 09:00 04/24/20 10:16 Aspirin 325 Mg Tab PO 325 mg DAILY AILIN Administration Atorvastatin Calcium 40 mg 04/14/20 21:00 04/23/20 23:52 Atorvastatin Calcium 40 Mg Tab PO 40 mg HS AILIN Administration Clopidogrel Bisulfate 75 mg 04/16/20 09:00 04/24/20 10:31 Clopidogrel Bisulfate 75 Mg Tab PO Not Given DAILY AILIN Dextrose/Sodium Chloride 1,000 mls @ 50 mls/hr 04/21/20 14:45 04/23/20 17:28 D5 0.9% Ns IV 1,000 mls .Q20H AILIN Administration Levetiracetam 1,000 mg/ Device 100 mls @ 200 mls/hr 04/24/20 09:00 04/24/20 10:13 IVPB 100 mls BID AILIN Administration Loperamide HCl 2 mg 04/20/20 19:40 04/24/20 04:55 Loperamide Hcl 1 Mg/7.5 Ml Udcup PO 2 mg Q4H PRN Administration Diarrhea/Loose Stools Pantoprazole Sodium 40 mg 04/18/20 09:00 04/24/20 10:16 Pantoprazole 40 Mg Granules Packet PO 40 mg DAILY AILIN Administration Psyllium Hydrophilic Mucilloid 1 pk 04/21/20 09:00 04/24/20 10:16 Metamucil Pack PER TUBE 1 pk DAILY AILIN Administration Sodium Chloride 10 ml 04/12/20 21:00 04/24/20 10:31 Flush - Normal Saline 10 Ml Syringe IVF Not Given Q12HR AILIN - Exam General Appearance: awake alert Eye: PERRL ENT: normocephalic atraumatic Neck: supple Respiratory: CTAB Cardiovascular: RRR Gastrointestinal: soft Extremities: no cyanosis Skin: normal turgor Neurological: no new deficit Musculoskeletal: normal tone, no muscle wasting PSYCH: normal affect, normal behavior, A&O x 3 Results - Labs Result Diagrams: 04/24/20 04:38 04/24/20 04:38 Lab results: WBC 5.9 thou/uL (4.8-10.8) 04/24/20 04:38 Hgb 9.4 g/dL (14.0-18.0) L 04/24/20 04:38 Hct 29.4 % (42.0-52.0) L 04/24/20 04:38 MCV 89.1 fL (78.0-98.0) 04/24/20 04:38 Plt Count 485 thou/uL (130-400) H 04/24/20 04:38 Neutrophils % 58.6 % (42.0-75.0) 04/24/20 04:38 Band Neuts % (Manual) 3 % (5-11) L 04/16/20 03:39 ABG pH 7.51 (7.35-7.45) H 04/10/20 16:10 ABG pCO2 29.2 mmHg (35.0-45.0) L 04/10/20 16:10 ABG pO2 54.9 mmHg (> 70.0) L* 04/10/20 16:10 VBG pH 7.46 (7.32-7.43) H 04/20/20 12:58 VBG pCO2 42.1 mmHg (42.0-51.0) 04/20/20 12:58 VBG pO2 40.8 mmHg (35.0-45.0) 04/20/20 12:58 Sodium 139 mmol/L (136-145) 04/24/20 04:38 Potassium 3.6 mmol/L (3.5-5.1) 04/24/20 04:38 Chloride 104 mmol/L (98-107) 04/24/20 04:38 Carbon Dioxide 26 mmol/L (23-31) 04/24/20 04:38 BUN 7 mg/dL (8.4-25.7) L 04/24/20 04:38 Creatinine 0.73 mg/dL (0.7-1.3) 04/24/20 04:38 Glucose 94 mg/dL (83-110) 04/24/20 04:38 Lactic Acid 2.0 mmol/L (0.5-2.2) 04/13/20 03:49 Calcium 7.9 mg/dL (7.8-10.44) 04/24/20 04:38 Total Bilirubin 1.2 mg/dL (0.2-1.2) 04/13/20 03:49 AST 72 U/L (5-34) H 04/13/20 03:49 ALT 31 U/L (8-55) 04/13/20 03:49 Alkaline Phosphatase 53 U/L (40-110) 04/13/20 03:49 Ammonia 38 umol/L (18-72) 04/10/20 16:49 Creatine Kinase 912 U/L (30-200) H 04/13/20 03:49 CK-MB (CK-2) 16.6 ng/mL (0-6.6) H* 04/10/20 16:49 Troponin I 0.148 ng/mL (< 0.028) H 04/10/20 22:49 C-Reactive Protein 29.71 mg/dL (= or < 0.5) H 04/13/20 03:49 B-Natriuretic Peptide 38.9 pg/mL (0-100) 04/10/20 16:49 Serum Total Protein 5.6 g/dL (5.8-8.1) L 04/13/20 03:49 Albumin 2.5 g/dL (3.4-4.8) L 04/13/20 03:49 Lipase 51 U/L (8-78) 04/10/20 16:49 Urine Ketones 20 mg/dL (Negative) A 04/10/20 15:40 Urine Blood 3+ (Negative) A 04/10/20 15:40 Urine Nitrite Negative (Negative) 04/10/20 15:40 Ur Leukocyte Esterase Negative Rafael/uL (Negative) 04/10/20 15:40 Urine RBC 7-10 HPF (0-3) A 04/10/20 15:40 Urine WBC 0-3 HPF (0-3) 04/10/20 15:40 Ur Squamous Epith Cells 0-3 HPF (0-3) 04/10/20 15:40 Urine Bacteria Rare-Few HPF (None Seen) 04/10/20 15:40 - Radiology Interpretation MRI - head Additional Comment: Of the brain was consistent with acute lacunar infarctions in multiple vascular distributions PN A/P (1) Embolic stroke Code(s): I63.9 - CEREBRAL INFARCTION, UNSPECIFIED Status: Acute (2) Hypernatremia Code(s): E87.0 - HYPEROSMOLALITY AND HYPERNATREMIA Status: Acute (3) Rhabdomyolysis Code(s): M62.82 - RHABDOMYOLYSIS Status: Acute Qualifiers: Rhabdomyolysis type: non-traumatic Qualified Code(s): M62.82 - Rhabdomyolysis (4) Sacral decubitus ulcer Code(s): L89.159 - PRESSURE ULCER OF SACRAL REGION, UNSPECIFIED STAGE Status: Acute Qualifiers: Pressure injury stage: stage 3 Qualified Code(s): L89.153 - Pressure ulcer of sacral region, stage 3 (5) Sepsis Code(s): A41.9 - SEPSIS, UNSPECIFIED ORGANISM Status: Acute Qualifiers: Sepsis type: sepsis due to unspecified organism Sepsis acute organ dysfunction status: with acute organ dysfunction Severe sepsis acute organ dysfunction type: acute renal failure (6) Toxic metabolic encephalopathy Code(s): G92 - TOXIC ENCEPHALOPATHY Status: Acute (7) WYATT (acute kidney injury) Code(s): N17.9 - ACUTE KIDNEY FAILURE, UNSPECIFIED Status: Resolved (8) Lactic acidosis Code(s): E87.2 - ACIDOSIS Status: Resolved (9) Dehydration Code(s): E86.0 - DEHYDRATION Status: Acute (10) Orthostatic hypotension Code(s): I95.1 - ORTHOSTATIC HYPOTENSION Status: Acute (11) Syncope Code(s): R55 - SYNCOPE AND COLLAPSE Status: Acute (12) TIA (transient ischemic attack) Status: Acute (13) Dementia Code(s): F03.90 - UNSPECIFIED DEMENTIA WITHOUT BEHAVIORAL DISTURBANCE Status: Chronic Qualifiers: Dementia type: Alzheimer's disease (14) Normocytic anemia Code(s): D64.9 - ANEMIA, UNSPECIFIED Status: Chronic - Plan Daily Plan: PT/OT, speech therapy, DVT proph w/SCDs Mr. Del Rosario is a 70-year-old male who presented with altered mental status . Altered mental status seemed to be multifactorial due to metabolic, infectious and intracranial etiologies which is now significantly improved. Patient mental status is much improved but nursing staff has noticed intermi ttent focal jerking of the upper and lower extremities yesterday. Repeat EEG showed interval worsening with spikes seen in the right cerebral hemisphere. The dose of Keppra was increased to 1000 mg twice daily to improve seizure control. No twitching reported by the physical therapy during the s ession. The patient expressed suicidal ideation during the physical therapy session. Nursing staff notified. Observe seizure precautions. Ativan 2 mg IV for seizure greater than 2 minutes. Neurochecks every 4 hours. MRI of the brain consistent with acute infarction which seemed cardioembolic since multiple vascular territories were involved. Cardiology is on board and appreciate their input. Continue aspirin, Plavix and high intensity statin for secondary stroke prevention. Plavix was added after discussion with cardiology since patient was already on aspirin but custodial records. Patient has Linq recorder which has been interrogated by cardiology. Continue home medications. Strict control of blood pressure and blood glucose. Continue medical management per primary team PT/OT/speech Case management on board regarding discharge planning Plan discussed with the nursing staff.
[2020-04-24] MEDS: Dextrose 5 % And 0.9 % NaCl 1,000 ML IV SCH (16:38)
--- NOTE | 2020-04-24 16:49 | PDOC.HOSPP ---
- Subjective Encounter Date: 04/24/20 Subjective: Gross hematuria is present. - Objective Vital Signs & Weight: Vital Signs (12 hours) Temp Pulse Pulse Pulse Resp BP BP 04/24/20 15:56 98.6 F 99 16 04/24/20 14:15 117 H 18 04/24/20 11:25 98.6 F 102 H 18 04/24/20 10:58 102 H 69 122/62 117/70 04/24/20 07:31 98.1 F 105 H 18 04/24/20 07:21 89 16 04/24/20 05:27 BP Pulse Ox 04/24/20 15:56 107/51 L 96 04/24/20 14:15 94 L 04/24/20 11:25 112/62 96 04/24/20 10:58 04/24/20 07:31 106/62 95 04/24/20 07:21 95 04/24/20 05:27 111/56 L Weight Admit Weight 136 lb Weight 136 lb Most Recent Monitor Data Heart Rate from ECG 92 NIBP 108/74 NIBP BP-Mean 85 Respiration from ECG 26 SpO2 100 I&O: 04/23/20 04/24/20 04/25/20 06:59 06:59 06:59 Intake Total 660 1267 1609 Output Total 1125 1200 425 Balance -380 85 7482 Result Diagrams: 04/24/20 04:38 04/24/20 04:38 Hospitalist ROS - Medication Medications: Active Medications Generic Name Dose Route Start Last Admin Trade Name Freq PRN Reason Stop Dose Admin Acetaminophen 650 mg 04/10/20 17:38 04/23/20 23:52 Acetaminophen 325 Mg Tab PO 650 mg Q4H PRN Administration Headache/Fever/Mild Pain (1-3) Acetaminophen 650 mg 04/10/20 17:38 04/11/20 23:57 Acetaminophen 650 Mg Suppository DC 650 mg Q4H PRN Administration Headache/Fever/Mild Pain (1-3) Acidophilus 1 tab 04/23/20 16:30 04/24/20 16:39 Lactinex Tablet PO 1 tab BID-AC AILIN Administration Atorvastatin Calcium 40 mg 04/14/20 21:00 04/23/20 23:52 Atorvastatin Calcium 40 Mg Tab PO 40 mg HS AILIN Administration Clopidogrel Bisulfate 75 mg 04/16/20 09:00 04/24/20 10:31 Clopidogrel Bisulfate 75 Mg Tab PO Not Given DAILY AILIN Dextrose/Sodium Chloride 1,000 mls @ 50 mls/hr 04/21/20 14:45 04/24/20 16:38 D5 0.9% Ns IV 1,000 mls .Q20H AILIN Administration Levetiracetam 1,000 mg/ Device 100 mls @ 200 mls/hr 04/24/20 09:00 04/24/20 10:13 IVPB 100 mls BID AILIN Administration Loperamide HCl 2 mg 04/20/20 19:40 04/24/20 04:55 Loperamide Hcl 1 Mg/7.5 Ml Udcup PO 2 mg Q4H PRN Administration Diarrhea/Loose Stools Pantoprazole Sodium 40 mg 04/18/20 09:00 04/24/20 10:16 Pantoprazole 40 Mg Granules Packet PO 40 mg DAILY AILIN Administration Psyllium Hydrophilic Mucilloid 1 pk 04/21/20 09:00 04/24/20 10:16 Metamucil Pack PER TUBE 1 pk DAILY AILIN Administration Sodium Chloride 10 ml 04/12/20 21:00 04/24/20 10:31 Flush - Normal Saline 10 Ml Syringe IVF Not Given Q12HR AILIN - Exam ENT: normocephalic atraumatic Neck: supple Heart: RRR Respiratory: normal chest expansion, no tachypnea Extremities: no cyanosis, no clubbing Hosp A/P (1) Embolic stroke Code(s): I63.9 - CEREBRAL INFARCTION, UNSPECIFIED Status: Acute (2) Hypernatremia Code(s): E87.0 - HYPEROSMOLALITY AND HYPERNATREMIA Status: Acute (3) Rhabdomyolysis Code(s): M62.82 - RHABDOMYOLYSIS Status: Acute Qualifiers: Rhabdomyolysis type: non-traumatic Qualified Code(s): M62.82 - Rhabdomyolysis (4) Sacral decubitus ulcer Code(s): L89.159 - PRESSURE ULCER OF SACRAL REGION, UNSPECIFIED STAGE Status: Acute Qualifiers: Pressure injury stage: stage 3 Qualified Code(s): L89.153 - Pressure ulcer of sacral region, stage 3 (5) Sepsis Code(s): A41.9 - SEPSIS, UNSPECIFIED ORGANISM Status: Acute Qualifiers: Sepsis type: sepsis due to unspecified organism Sepsis acute organ dysfunction status: with acute organ dysfunction Severe sepsis acute organ dysfunction type: acute renal failure (6) WYATT (acute kidney injury) Code(s): N17.9 - ACUTE KIDNEY FAILURE, UNSPECIFIED Status: Resolved (7) Dementia Code(s): F03.90 - UNSPECIFIED DEMENTIA WITHOUT BEHAVIORAL DISTURBANCE Status: Chronic Qualifiers: Dementia type: Alzheimer's disease (8) Gross hematuria Status: Acute - Plan This is a 70-year-old male with past medical history of dementia, CVA, coronary artery disease, hypertension, and hyperlipidemia who was found unresponsive at home. The patient was down for unknown time and presented with acute renal failure, metabolic acidosis, rhabdomyolysis, and sacral decubitus ulcer. He was admitted to the [facility] and initially managed for sepsis and possible pneumonia. MRI of the brain showed multifocal acute or subacute infarctions in multiple vascular territories suggestive of an embolic source. Echocardiogram showed preserved EF with no intravascular thrombi. EEG showed sharp activity emanating from temporal lobe. The patient was started on Keppra. He is now on aspirin and clopidogrel per cardiology and neurology recommendations. He failed his swallow evaluation and a PEG tube was placed by GI. He seems to be tolerating his tube feeding. His recent hospital days has been complicated by electrolyte disturbances and diarrhea. C. difficile test was negative and electrolytes are being corrected. His bowel movements have been more formed recently. Continue NS D5W at 50 mL/h. Acute kidney injury and rhabdomyolysis have resolved. His mental status has improved per his family. 04/24: Gross hematuria is present. Hold heparin and Plavix and reduce aspirin dose to 81 mg daily. Check hemoglobin level tomorrow. Urology consult.
[2020-04-24] MEDS: Atorvastatin Calcium 40 MG TAB PO SCH (22:32)
--- NOTE | 2020-04-24 23:29 | CON ---
DATE OF CONSULTATION: 04/24/2020 CONSULTING: Madina Tyson MD. CONSULTED: Dr. Gregory Nick. REASON FOR CONSULTATION: Hematuria. HISTORY OF PRESENT ILLNESS: Mr. Del Rosario is a 70-year-old black male who unfortunately was admitted to the hospital round April 10 after having been found down with severe altered mental status and rhabdomyolysis. He was found to have multiple embolic CVAs along with vascular dementia. He was admitted to the hospital and found to have sepsis secondary to likely aspiration pneumonia and a possible urinary tract infection. He has had a very slow recovery and has not gained significant amount of function. He has already undergone a PEG tube placement. He is currently with a Myers catheter and it was noted by the primary medical team that the patient started having spontaneous hematuria. It is unclear if the patient tugged on or pulled on his catheter at all. I was consulted for assistance with his hematuria. On arrival to the bedside, there is no family present. The patient is relatively nonverbal. He does open his eyes upon being spoken to, but does not answer any questions and generally closes his eyes and goes back to sleep despite me talking to him. PAST MEDICAL HISTORY: 1. Vascular dementia. 2. Recurrent CVAs, primarily embolic. 3. Coronary artery disease. 4. Hypertension. 5. Gastritis. 6. Dementia. 7. Dyslipidemia. 8. History of syncope. PAST SURGICAL HISTORY: 1. Right shoulder surgery. 2. LINQ monitor placement. 3. Cardiac catheterization. 4. EGD with colonoscopy. 5. Recent PEG tube placement. ALLERGIES: PENICILLIN. HOME MEDICATIONS: 1. Risperdal. 2. Potassium chloride. 3. Protonix. 4. Zofran. 5. Multivitamins. 6. Midodrine. 7. Magnesium oxide. 8. Folate. 9. Vitamin B12. 10. Vitamin D3. 11. Atorvastatin. FAMILY HISTORY: Significant for hypertension and coronary artery disease. SOCIAL HISTORY: The patient currently resides at [facility]. He has no known history of tobacco or alcohol use. REVIEW OF SYSTEMS: A 12-point review of systems unable to be obtained secondary to the patient's significant altered mental status and inability to speak adequately. PHYSICAL EXAMINATION: VITAL SIGNS: Temperature 98.6, pulse 99, respirations 16, blood pressure 107/51, saturation 96% on room air. GENERAL: No apparent distress. Appears somewhat somnolent. Does open eyes to verbal stimuli, but otherwise goes right back to sleep, not answering questions. HEENT: Normocephalic, atraumatic. Pupils are symmetric and round. Trachea midline. CARDIOVASCULAR: Regular rate and rhythm. Normal S1, S2. Symmetric pulses. CHEST: Nonlabored breathing. Diminished breath sounds. Symmetric expansion of lungs. ABDOMEN: Soft, nontender, nondistended. Positive bowel sounds. No organomegaly. GENITOURINARY: Myers catheter currently in place, secured with translucent red urine in the drainage tubing. Testes are bilaterally descended. Rectal exam was not possible at this time secondary to patient being unable to adequately move. EXTREMITIES: No obvious clubbing, cyanosis, or edema. MUSCULOSKELETAL: No obvious joint deformities or joint erythema noted. Patient is not following commands adequately. NEUROLOGIC: Could not be tested secondary to patient not following commands. PSYCHIATRIC: Patient is somnolent, oriented x0 as patient is nonverbal, appears to have significant dementia secondary to multiple CVAs and vascular disease. LABORATORY EVALUATION: A full set of labs are in the [facility] system which I have reviewed. Of note, the patient's current white count is 5.9, hemoglobin 9.4, creatinine is currently 0.73. Urine culture from April 10 was negative. ASSESSMENT AND PLAN: A 70-year-old black male with vascular dementia and sepsis secondary to pneumonia with no evidence of urinary tract infection on his original urine culture. His hematuria at the current time is unclear as to exactly where this is coming from, although it is possible the patient may have tugged on his catheter. He is currently taking Plavix which has been held by his neurologist secondary to his hematuria. I would also recommend stopping his aspirin. Generally, over 90% of cases of hematuria will spontaneously resolve on their own with cessation of anticoagulants. It is unclear whether the patient has urinary retention or urinary problems at baseline as I cannot get any type of information from him at the current time. I may be able to get further information from his family when they are available. Given his significant debilitation and prolonged hospitalization, I am not sure that he will be able to void secondary to significant weakness. We can always perform a void trial. If the patient is able to void on his own, it would be ideal to take his catheter out once his hematuria has cleared somewhat. If the patient is in urinary retention, he will need his catheter replaced. Once his urine is clear, he can also restart on his anti-platelet therapy, but would recommend continuing to hold it until he has clear urine for 48 hours. At the current time, he does not need any further workup for his hematuria as instrumented hematuria is usually caused by the catheter irritation itself and rather than any underlying disease. However, if he continues to have hematuria after catheter removal, this may require further workup subsequently. I will continue to follow at this time and see if you may be amenable to a voiding trial if this has not yet been performed. Job ID: [id number]
[2020-04-25 06:13] LABS: #Basophils 0.1 thou/uL (0.0-0.2); #Eosinphils 0.1 thou/uL (0.0-0.7); #Lymphocytes 1.6 thou/uL (1.20-3.40); #Monocytes 0.6 thou/uL (0.11-0.59); #Neutrophils 5.3 thou/uL (1.40-6.50); %Basophils 0.9 % (0.0-1.0); %Eosinophils 1.3 % (0.0-10.0); %Lymphocytes 20.9 % (21.0-51.0); %Monocytes 7.9 % (0.0-10.0); Hemoglobin 8.9 g/dL (14.0-18.0); Mean Corpuscular HGB CONC 32.4 g/dL (32.0-36.0); Mean Corpuscular Hemoglobin 28.8 pg (27.0-31.0); Mean Corpuscular Volume 88.9 fL (78.0-98.0); Mean Platelet Volume 7.7 fL (7.4-10.4); Platelet Count 422 thou/uL (130-400); RBC Distribution Width 13.4 % (11.5-14.5); White Blood Cell (WBC) Count 7.7 thou/uL (4.8-10.8)
[2020-04-25 06:39] LABS: Anion Gap 11 mmol/L (10-20); BUN (Urea Nitrogen) 8 mg/dL (8.4-25.7); Calc. Creatinine Clearance 83 mL/min (70-130); Calcium 7.7 mg/dL (7.8-10.44); Carbon Dioxide 26 mmol/L (23-31); Chloride 105 mmol/L (98-107); Glucose 124 mg/dL (83-110); Potassium 3.1 mmol/L (3.5-5.1); Sodium 139 mmol/L (136-145)
[2020-04-25] MEDS ORDERED: Aspirin Chewable 81 MG TAB PO SCH (09:00)
[2020-04-25] MEDS: Pantoprazole 40 MG GRANULES PACKET PO SCH (09:49)
[2020-04-25] MEDS: Lactinex Tablet PO SCH ×2 (09:49→16:59)
[2020-04-25] MEDS: Metamucil PACK PER TUBE SCH (09:50)
[2020-04-25] MEDS: levETIRAcetam in NS 1,000 MG in Premix Bag 1 BAG IVPB SCH ×2 (09:51→21:19)
--- NOTE | 2020-04-25 14:13 | PDOC.HOSPP ---
- Subjective Encounter Date: 04/25/20 Subjective: The patient's urine appears to be less red than yesterday. - Objective Vital Signs & Weight: Vital Signs (12 hours) Temp Pulse Pulse Resp BP BP Pulse Ox 04/25/20 13:28 95 127/68 04/25/20 11:43 98.3 F 79 18 128/60 96 04/25/20 07:46 98 F 86 18 115/59 L 93 L 04/25/20 04:00 98.2 F 82 18 119/65 97 Weight Admit Weight 136 lb Weight 136 lb Most Recent Monitor Data Heart Rate from ECG 92 NIBP 108/74 NIBP BP-Mean 85 Respiration from ECG 26 SpO2 100 I&O: 04/24/20 04/25/20 04/26/20 06:59 06:59 06:59 Intake Total 1267 2326 Output Total 3686 000 6504 Balance 67 1901 -1200 Result Diagrams: 04/25/20 05:59 04/25/20 05:59 Hospitalist ROS - Medication Medications: Active Medications Generic Name Dose Route Start Last Admin Trade Name Freq PRN Reason Stop Dose Admin Acetaminophen 650 mg 04/10/20 17:38 04/23/20 23:52 Acetaminophen 325 Mg Tab PO 650 mg Q4H PRN Administration Headache/Fever/Mild Pain (1-3) Acetaminophen 650 mg 04/10/20 17:38 04/11/20 23:57 Acetaminophen 650 Mg Suppository [place] 650 mg Q4H PRN Administration Headache/Fever/Mild Pain (1-3) Acidophilus 1 tab 04/23/20 16:30 04/25/20 09:49 Lactinex Tablet PO 1 tab BID-AC AILIN Administration Aspirin 81 mg 04/25/20 09:00 04/25/20 09:50 Aspirin Chewable 81 Mg Tab PO Not Given DAILY AILIN Atorvastatin Calcium 40 mg 04/14/20 21:00 04/24/20 22:32 Atorvastatin Calcium 40 Mg Tab PO 40 mg HS AILIN Administration Clopidogrel Bisulfate 75 mg 04/16/20 09:00 04/24/20 10:31 Clopidogrel Bisulfate 75 Mg Tab PO Not Given DAILY AILIN Dextrose/Sodium Chloride 1,000 mls @ 50 mls/hr 04/21/20 14:45 04/24/20 16:38 D5 0.9% Ns IV 1,000 mls .Q20H AIILN Administration Levetiracetam 1,000 mg/ Device 100 mls @ 200 mls/hr 04/24/20 09:00 04/25/20 09:51 IVPB 100 mls BID AILIN Administration Loperamide HCl 2 mg 04/20/20 19:40 04/24/20 04:55 Loperamide Hcl 1 Mg/7.5 Ml Udcup PO 2 mg Q4H PRN Administration Diarrhea/Loose Stools Pantoprazole Sodium 40 mg 04/18/20 09:00 04/25/20 09:49 Pantoprazole 40 Mg Granules Packet PO 40 mg DAILY AILIN Administration Psyllium Hydrophilic Mucilloid 1 pk 04/21/20 09:00 04/25/20 09:50 Metamucil Pack PER TUBE 1 pk DAILY AILIN Administration Sodium Chloride 10 ml 04/12/20 21:00 04/25/20 09:50 Flush - Normal Saline 10 Ml Syringe IVF Not Given Q12HR AILIN - Exam ENT: normocephalic atraumatic Neck: supple Heart: RRR Respiratory: normal chest expansion, no tachypnea Extremities: no cyanosis, no clubbing Hosp A/P (1) Embolic stroke Code(s): I63.9 - CEREBRAL INFARCTION, UNSPECIFIED Status: Acute (2) Hypernatremia Code(s): E87.0 - HYPEROSMOLALITY AND HYPERNATREMIA Status: Acute (3) Rhabdomyolysis Code(s): M62.82 - RHABDOMYOLYSIS Status: Acute Qualifiers: Rhabdomyolysis type: non-traumatic Qualified Code(s): M62.82 - Rhabdomyolysis (4) Sacral decubitus ulcer Code(s): L89.159 - PRESSURE ULCER OF SACRAL REGION, UNSPECIFIED STAGE Status: Acute Qualifiers: Pressure injury stage: stage 3 Qualified Code(s): L89.153 - Pressure ulcer of sacral region, stage 3 (5) Sepsis Code(s): A41.9 - SEPSIS, UNSPECIFIED ORGANISM Status: Acute Qualifiers: Sepsis type: sepsis due to unspecified organism Sepsis acute organ dysfu nction status: with acute organ dysfunction Severe sepsis acute organ dys function type: acute renal failure (6) WYATT (acute kidney injury) Code(s): N17.9 - ACUTE KIDNEY FAILURE, UNSPECIFIED Status: Resolved (7) Dementia Code(s): F03.90 - UNSPECIFIED DEMENTIA WITHOUT BEHAVIORAL DISTURBANCE Status: Chronic Qualifiers: Dementia type: Alzheimer's disease (8) Gross hematuria Status: Acute - Plan This is a 70-year-old male with past medical history of dementia, CVA, coronary artery disease, hypertension, and hyperlipidemia who was found unresponsive at home. The patient was down for unknown time and presented with acute renal failure, metabolic acidosis, rhabdomyolysis, and sacral decubitus ulcer. He was admitted to the [facility] and initially managed for sepsis and possible pneumonia. MRI of the brain showed multifocal acute or subacute infarctions in multiple vascular territories suggestive of an embolic source. Echocardiogram showed preserved EF with no intravascular thrombi. EEG showed sharp activity emanating from temporal lobe. The patient was started on Keppra. He is now on aspirin and clopidogrel per cardiology and neurology recommendations. He failed his swallow evaluation and a PEG tube was placed by GI. He seems to be tolerating his tube feeding. His recent hospital days has been complicated by electrolyte disturbances and diarrhea. C. difficile test was negative and electrolytes are being corrected. His bowel movements have been more formed recently. Continue NS D5W at 50 mL/h. Acute kidney injury and rhabdomyolysis have resolved. His mental status has improved per his family. 04/24: Gross hematuria is present. Hold heparin and Plavix and reduce aspirin dose to 81 mg daily. Check hemoglobin level tomorrow. Urology consult. 04/25: Aspirin and Plavix were held per urology recommendations. The urine appears to be more clear today. Once the urine is completely clear, we can restart antiplatelet therapy within 48 hours. Discharge to rehab pending clearance of the patient's urine.
[2020-04-25] MEDS: Dextrose 5 % And 0.9 % NaCl 1,000 ML IV SCH (15:03)
[2020-04-25] MEDS: Atorvastatin Calcium 40 MG TAB PO SCH (21:18)
[2020-04-26 04:56] LABS: #Basophils 0.1 thou/uL (0.0-0.2); #Eosinphils 0.1 thou/uL (0.0-0.7); #Lymphocytes 1.7 thou/uL (1.20-3.40); #Monocytes 0.7 thou/uL (0.11-0.59); #Neutrophils 4.2 thou/uL (1.40-6.50); %Eosinophils 1.5 % (0.0-10.0); %Lymphocytes 24.6 % (21.0-51.0); %Monocytes 9.7 % (0.0-10.0); %Neutrophils 63.2 % (42.0-75.0); Hemoglobin 8.8 g/dL (14.0-18.0); Mean Corpuscular HGB CONC 32.5 g/dL (32.0-36.0); Mean Corpuscular Volume 89.1 fL (78.0-98.0); Mean Platelet Volume 8.2 fL (7.4-10.4); Platelet Count 381 thou/uL (130-400); RBC Distribution Width 13.5 % (11.5-14.5); Red Blood Cell (RBC) Count 3.04 mill/uL (4.70-6.10); White Blood Cell (WBC) Count 6.7 thou/uL (4.8-10.8)
[2020-04-26 05:38] LABS: Anion Gap 11 mmol/L (10-20); BUN (Urea Nitrogen) 8 mg/dL (8.4-25.7); Calc. Creatinine Clearance 87 mL/min (70-130); Calcium 7.5 mg/dL (7.8-10.44); Carbon Dioxide 28 mmol/L (23-31); Chloride 105 mmol/L (98-107); Glucose 118 mg/dL (83-110); Sodium 141 mmol/L (136-145)
[2020-04-26] MEDS: levETIRAcetam in NS 1,000 MG in Premix Bag 1 BAG IVPB SCH ×2 (08:58→20:18)
[2020-04-26] MEDS: Lactinex Tablet PO SCH ×2 (08:58→16:24)
[2020-04-26] MEDS: Pantoprazole 40 MG GRANULES PACKET PO SCH (08:58)
[2020-04-26] MEDS: Dextrose 5 % And 0.9 % NaCl 1,000 ML IV SCH (08:59)
[2020-04-26] MEDS: Metamucil PACK PER TUBE SCH (09:00)
[2020-04-26] MEDS ORDERED: Tamsulosin HCl 0.4 MG CAP PO SCH (12:30)
--- NOTE | 2020-04-26 13:08 | PDOC.HOSPP ---
- Subjective Encounter Date: 04/26/20 Subjective: The patient's urine output seems to be clear today. - Objective Vital Signs & Weight: Vital Signs (12 hours) Temp Pulse Pulse Pulse Resp BP BP 04/26/20 11:35 98.7 F 91 25 H 04/26/20 09:09 57 L 60 103/56 L 125/63 04/26/20 07:40 98.1 F 88 23 H 04/26/20 04:00 98.3 F 103 H 20 BP BP Pulse Ox 04/26/20 11:35 112/56 L 95 04/26/20 09:09 04/26/20 07:40 114/55 L 96 04/26/20 04:00 112/60 96 Weight Admit Weight 136 lb Weight 136 lb Most Recent Monitor Data Heart Rate from ECG 92 NIBP 108/74 NIBP BP-Mean 85 Respiration from ECG 26 SpO2 100 I&O: 04/25/20 04/26/20 04/27/20 06:59 06:59 06:59 Intake Total 2326 2379 415 Output Total 425 2600 Balance 1901 -221 415 Result Diagrams: 04/26/20 04:29 04/26/20 04:29 Hospitalist ROS - Medication Medications: Active Medications Generic Name Dose Route Start Last Admin Trade Name Freq PRN Reason Stop Dose Admin Acetaminophen 650 mg 04/10/20 17:38 04/23/20 23:52 Acetaminophen 325 Mg Tab PO 650 mg Q4H PRN Administration Headache/Fever/Mild Pain (1-3) Acetaminophen 650 mg 04/10/20 17:38 04/11/20 23:57 Acetaminophen 650 Mg Suppository [place] 650 mg Q4H PRN Administration Headache/Fever/Mild Pain (1-3) Acidophilus 1 tab 04/23/20 16:30 04/26/20 08:58 Lactinex Tablet PO 1 tab BID-AC AILIN Administration Aspirin 81 mg 04/25/20 09:00 04/25/20 09:50 Aspirin Chewable 81 Mg Tab PO Not Given DAILY AILIN Atorvastatin Calcium 40 mg 04/14/20 21:00 04/25/20 21:18 Atorvastatin Calcium 40 Mg Tab PO 40 mg HS AILIN Administration Clopidogrel Bisulfate 75 mg 04/16/20 09:00 04/24/20 10:31 Clopidogrel Bisulfate 75 Mg Tab PO Not Given DAILY AILIN Dextrose/Sodium Chloride 1,000 mls @ 50 mls/hr 04/21/20 14:45 04/26/20 08:59 D5 0.9% Ns IV 1,000 mls .Q20H AILIN Administration Levetiracetam 1,000 mg/ Device 100 mls @ 200 mls/hr 04/24/20 09:00 04/26/20 08:58 IVPB 100 mls BID AILIN Administration Loperamide HCl 2 mg 04/20/20 19:40 04/24/20 04:55 Loperamide Hcl 1 Mg/7.5 Ml Udcup PO 2 mg Q4H PRN Administration Diarrhea/Loose Stools Pantoprazole Sodium 40 mg 04/18/20 09:00 04/26/20 08:58 Pantoprazole 40 Mg Granules Packet PO 40 mg DAILY AILIN Administration Psyllium Hydrophilic Mucilloid 1 pk 04/21/20 09:00 04/26/20 09:00 Metamucil Pack PER TUBE 1 pk DAILY AILIN Administration Sodium Chloride 10 ml 04/12/20 21:00 04/26/20 08:59 Flush - Normal Saline 10 Ml Syringe IVF 10 ml Q12HR AILIN Administration Tamsulosin HCl 0.4 mg 04/26/20 12:30 04/26/20 12:47 Tamsulosin Hcl 0.4 Mg Cap PO 04/26/20 15:00 0.4 mg NOW AILIN Administration - Exam General Appearance: awake alert ENT: normocephalic atraumatic Neck: supple Heart: RRR Respiratory: normal chest expansion, no tachypnea Extremities: no cyanosis, no clubbing Hosp A/P (1) Embolic stroke Code(s): I63.9 - CEREBRAL INFARCTION, UNSPECIFIED Status: Acute (2) Hypernatremia Code(s): E87.0 - HYPEROSMOLALITY AND HYPERNATREMIA Status: Acute (3) Rhabdomyolysis Code(s): M62.82 - RHABDOMYOLYSIS Status: Acute Qualifiers: Rhabdomyolysis type: non-traumatic Qualified Code(s): M62.82 - Rhabdomyoly sis (4) Sacral decubitus ulcer Code(s): L89.159 - PRESSURE ULCER OF SACRAL REGION, UNSPECIFIED STAGE Status: Acute Qualifiers: Pressure injury stage: stage 3 Qualified Code(s): L89.153 - Pressure ulcer of sacral region, stage 3 (5) Sepsis Code(s): A41.9 - SEPSIS, UNSPECIFIED ORGANISM Status: Acute Qualifiers: Sepsis type: sepsis due to unspecified organism Sepsis acute organ dysfunction status: with acute organ dysfunction Severe sepsis acute organ dysfunction type: acute renal failure (6) WYATT (acute kidney injury) Code(s): N17.9 - ACUTE KIDNEY FAILURE, UNSPECIFIED Status: Resolved (7) Dementia Code(s): F03.90 - UNSPECIFIED DEMENTIA WITHOUT BEHAVIORAL DISTURBANCE Status: Chronic Qualifiers: Dementia type: Alzheimer's disease (8) Gross hematuria Status: Acute - Plan This is a 70-year-old male with past medical history of dementia, CVA, coronary artery disease, hypertension, and hyperlipidemia who was found unresponsive at home. The patient was down for unknown time and presented with acute renal failure, metabolic acidosis, rhabdomyolysis, and sacral decubitus ulcer. He was admitted to the [facility] and initially managed for sepsis and possible pneumonia. MRI of the brain showed multifocal acute or subacute infarctions in multiple vascular territories suggestive of an embolic source. Echocardiogram showed preserved EF with no intravascular thrombi. EEG showed sharp activity emanating from temporal lobe. The patient was started on Keppra. He is now on aspirin and clopidogrel per cardiology and neurology recommendations. He failed his swallow evaluation and a PEG tube was placed by GI. He seems to be tolerating his tube feeding. His recent hospital days has been complicated by electrolyte disturbances and diarrhea. C. difficile test was negative and electrolytes are being corrected. His bowel movements have been more formed recently. Continue NS D5W at 50 mL/h. Acute kidney injury and rhabdomyolysis have resolved. His mental status has improved per his family. 04/24: Gross hematuria is present. Hold heparin and Plavix and reduce aspirin dose to 81 mg daily. Check hemoglobin level tomorrow. Urology consult. 04/25: Aspirin and Plavix were held per urology recommendations. The urine appears to be more clear today. Once the urine is completely clear, we can restart antiplatelet therapy within 48 hours. Discharge to rehab pending clearance of the patient's urine. 04/26: Gross hematuria seems to have resolved. Will administer 1 dose of tamsulosin 0.4 mg and attempt a trial without Myers sometime today. We will continue to hold antiplatelet therapy for 48 hours. If the patient can void without problems, he can probably be discharged in the morning.
[2020-04-26] MEDS: Acetaminophen 325 MG TAB PO PRN (18:31)
[2020-04-26] MEDS: Atorvastatin Calcium 40 MG TAB PO SCH (20:18)
[2020-04-27 05:02] LABS: #Basophils 0.1 thou/uL (0.0-0.2); #Eosinphils 0.2 thou/uL (0.0-0.7); #Lymphocytes 1.6 thou/uL (1.20-3.40); #Monocytes 0.6 thou/uL (0.11-0.59); #Neutrophils 3.8 thou/uL (1.40-6.50); %Basophils 1.1 % (0.0-1.0); %Eosinophils 2.4 % (0.0-10.0); %Lymphocytes 26.2 % (21.0-51.0); %Neutrophils 60.3 % (42.0-75.0); Hemoglobin 8.2 g/dL (14.0-18.0); Mean Corpuscular HGB CONC 32.4 g/dL (32.0-36.0); Mean Corpuscular Hemoglobin 28.7 pg (27.0-31.0); Mean Corpuscular Volume 88.6 fL (78.0-98.0); Platelet Count 350 thou/uL (130-400); RBC Distribution Width 13.3 % (11.5-14.5); Red Blood Cell (RBC) Count 2.84 mill/uL (4.70-6.10); White Blood Cell (WBC) Count 6.2 thou/uL (4.8-10.8)
[2020-04-27 05:22] LABS: Anion Gap 9 mmol/L (10-20); BUN (Urea Nitrogen) 9 mg/dL (8.4-25.7); Calc. Creatinine Clearance 91 mL/min (70-130); Calcium 7.5 mg/dL (7.8-10.44); Carbon Dioxide 32 mmol/L (23-31); Chloride 103 mmol/L (98-107); Glucose 113 mg/dL (83-110); Sodium 141 mmol/L (136-145)
[2020-04-27 05:26] LABS: Potassium 2.8 mmol/L (3.5-5.1)
[2020-04-27] MEDS: Dextrose 5 % And 0.9 % NaCl 1,000 ML IV SCH (06:30)
[2020-04-27] MEDS: Potassium Chloride 20 MEQ in Premix Bag 1 BAG IVPB SCH ×2 (06:30→08:57)
[2020-04-27] MEDS: Pantoprazole 40 MG GRANULES PACKET PO SCH (08:52)
[2020-04-27] MEDS: Lactinex Tablet PO SCH (08:52)
[2020-04-27] MEDS: levETIRAcetam in NS 1,000 MG in Premix Bag 1 BAG IVPB SCH (08:52)
[2020-04-27] MEDS: Metamucil PACK PER TUBE SCH (08:53)
--- NOTE | 2020-04-27 09:21 | PDOC.DS.DS ---
Provider - Provider Date of Admission: 04/10/20 17:38 Date of Discharge: 04/27/20 Admitting Provider: Ramirez Hameed MD Primary Care Physician: Nicholas López, Course - Hospital Course Hospital Course: This is a 70-year-old male with past medical history of dementia, CVA, coronary artery disease, hypertension, and hyperlipidemia who was found unresponsive at home. The patient was down for unknown time and presented with acute renal failure, metabolic acidosis, rhabdomyolysis, and sacral decubitus ulcer. He was admitted to the [facility] and initially managed for sepsis and possible pneumonia. MRI of the brain showed multifocal acute or subacute infarctions in multiple vascular territories suggestive of an embolic source. Echocardiogram showed preserved EF with no intravascular thrombi. EEG showed sharp activity emanating from temporal lobe. The patient was started on Keppra. He is now on aspirin and clopidogrel per cardiology and neurology recommendations. He failed his swallow evaluation and a PEG tube was placed by GI. He seems to be tolerating his tube feeding. His recent hospital days has been complicated by electrolyte disturbances and diarrhea. C. difficile test was negative and electrolytes are being corrected. His bowel movements have been more formed recently. Continue NS D5W at 50 mL/h. Acute kidney injury and rhabdomyolysis have resolved. His mental status has improved per his family. The patient had an episode of gross hematuria. His dual antiplatelet therapy was placed on hold and urology were consulted. Recommended conservative management until the urine is clear, then removing the Sharpe catheter and restarting dual antiplatelet therapy afterwards. The patient's Sharpe catheter was removed on the day prior to discharge. Currently he is voiding well and his urine is clear. We will start the aspirin tomorrow but recommend holding the Plavix until Thursday. Resuscitation Status: 04/10/20 17:32 Resuscitation Status Routine Resuscitation Status: FULL: Full Resuscitation - Labs Lab Results: 04/27/20 04:33 04/27/20 04:33 Abnormal Lab Results - Last 48 hrs 04/26/20 04:29: Potassium 3.0 L, BUN 8 L, Creatinine 0.68 L, Calcium 7.5 L 04/26/20 04:29: RBC 3.04 L, Hgb 8.8 L, Hct 27.1 L, Monocytes # 0.7 H 04/27/20 04:33: Potassium 2.8 L*, Carbon Dioxide 32 H, Anion Gap 9 L, Creatinine 0.65 L, Calcium 7.5 L 04/27/20 04:33: RBC 2.84 L, Hgb 8.2 L, Hct 25.2 L, Basophils % 1.1 H, Monocytes # 0.6 H Microbiology - Entire Visit 04/19/20 17:15 Stool Stool Culture - Final 04/19/20 17:15 Stool Stool Lactoferrin - Final 04/19/20 17:15 Stool Campylobacter Antigen Assay - Final 04/19/20 17:15 Stool Shiga Toxin Test - Final 04/18/20 17:23 Stool C. difficile GDH Antigen & Toxins - Final 04/10/20 16:49 Venous blood - Right Arm Blood Culture - Final NO GROWTH IN 5 DAYS 04/10/20 15:55 Venous blood - Left Hand Blood Culture - Final NO GROWTH IN 5 DAYS 04/10/20 18:23 Spinal Fluid - Miscellaneous Desc..see Notes Body Fluid Culture - Final 04/10/20 15:40 Urine sharpe catheter Urine Culture - Final NO GROWTH AT 36 HOURS - Physical Exam Vitals: Vital Signs (12 hours) Temp Pulse Resp BP Pulse Ox 04/27/20 07:12 98.9 F 96 20 123/66 100 04/27/20 04:00 99.3 F 88 20 110/67 96 04/26/20 23:58 98.9 F 85 20 106/57 L 95 Weight Admit Weight 136 lb Weight 136 lb Most Recent Monitor Data Heart Rate from ECG 92 NIBP 108/74 NIBP BP-Mean 85 Respiration from ECG 26 SpO2 100 Physical Exam: The patient was seen and examined on the day of discharge. Problem - Problem (1) Embolic stroke Code(s): I63.9 - CEREBRAL INFARCTION, UNSPECIFIED Status: Acute (2) Hypernatremia Code(s): E87.0 - HYPEROSMOLALITY AND HYPERNATREMIA Status: Acute (3) Rhabdomyolysis Code(s): M62.82 - RHABDOMYOLYSIS Status: Acute Qualifiers: Rhabdomyolysis type: non-traumatic Qualified Code(s): M62.82 - Rhabdomyolysis (4) Sacral decubitus ulcer Code(s): L89.159 - PRESSURE ULCER OF SACRAL REGION, UNSPECIFIED STAGE Status: Acute Qualifiers: Pressure injury stage: stage 3 Qualified Code(s): L89.153 - Pressure ulcer of sacral region, stage 3 (5) Sepsis Code(s): A41.9 - SEPSIS, UNSPECIFIED ORGANISM Status: Acute Qualifiers: Sepsis type: sepsis due to unspecified organism Sepsis acute organ dysfunction status: with acute organ dysfunction Severe sepsis acute organ dysfunction type: acute renal failure (6) WYATT (acute kidney injury) Code(s): N17.9 - ACUTE KIDNEY FAILURE, UNSPECIFIED Status: Resolved (7) Dementia Code(s): F03.90 - UNSPECIFIED DEMENTIA WITHOUT BEHAVIORAL DISTURBANCE Status: Chronic Qualifiers: Dementia type: Alzheimer's disease (8) Gross hematuria Status: Acute Plan - Discharge Medications Home Medications: Medication Instructions Recorded Confirmed Type Atorvastatin Calcium 40 mg PO HS 04/01/16 04/19/20 History Potassium Chloride 10 meq PO DAILY 04/01/16 04/19/20 History Cholecalciferol (Vitamin D3) 2,000 unit PO DAILY 11/21/16 04/19/20 History [Vitamin D3] Cyanocobalamin (Vitamin B-12) 1,000 mcg PO DAILY 11/21/16 04/19/20 History [Vitamin B-12] Folic Acid [Folvite] 1 mg PO DAILY 11/21/16 04/19/20 History Magnesium Oxide 400 mg PO BID tab 11/24/16 04/19/20 Rx Pantoprazole [Protonix] 40 mg PO DAILY tab 11/24/16 04/19/20 Rx Aspirin Chewable [Aspirin Chewable 81 mg PO DAILY tab 04/27/20 Rx Tablet] Bisacodyl [Dulcolax] 10 mg SC DAILYPRN PRN supp 04/27/20 Rx Clopidogrel Bisulfate [Plavix] 75 mg PO DAILY tab 04/27/20 Rx Guaifenesin DM 100-10 [Robitussin 15 ml PO Q4H PRN ml 04/27/20 Rx DM] Ipratropium/Albuterol Sulfate 3 ml NEB Q6H PRN neb 04/27/20 Rx [DuoNeb] Lactobacillus [Floranex] 1 tab PO BID-AC tab 04/27/20 Rx Lipase/Protease/Amylase [Leo THOMAS 1 cap FS .PER PROTOCOL PRN cap 04/27/20 Rx 12,000 Units] Loperamide HCl [Loperamide HCl 2 mg PO Q4H PRN ml 04/27/20 Rx Liquid] levETIRAcetam in NS [Keppra] 1,000 mg IVPB BID bag 04/27/20 Rx Allergies: Penicillins Allergy (Verified 08/02/19 02:14) - Follow up Plan Referrals: Nicholas López MD [Primary Care Provider] - Disposition: REHABILITATION INPATIENT Quality - Care Measures CORE MEASURES:: Stroke/TIA - Stroke/TIA Did you prescribe antithrombotic therapy?: Yes Did you prescribe anticoagulant for A Fib/Flutter?: No Specify reason for no DC anticoagulant: Treatment not indicated Did you prescribe a statin medication?: Yes
[2020-04-27] MEDS: Acetaminophen 325 MG TAB PO PRN (11:28)
[2020-04-27] MEDS ORDERED: Potassium Chloride 20 MEQ TAB PER TUBE SCH (12:00)
[2020-04-27] MEDS ORDERED: Senokot S 8.6-50 MG TAB PER TUBE PRN (12:30)
[2020-04-27] MEDS ORDERED: Guaifenesin DM 100-10/5 ML UDCUP PER TUBE PRN (12:30)
[2020-04-27] MEDS ORDERED: Loperamide HCl 1 MG/7.5 ML UDCUP PER TUBE PRN (12:30)
[2020-04-27] MEDS ORDERED: Acetaminophen 325 MG TAB PER TUBE PRN (12:30)
[2020-04-27 13:43] LABS: Anion Gap 8 mmol/L (10-20); Carbon Dioxide 31 mmol/L (23-31); Chloride 105 mmol/L (98-107); Sodium 141 mmol/L (136-145)
[2020-04-27 16:15] VITALS: BP 125/66; TEMP 98.9
[2020-04-27] MEDS ORDERED: Lactinex Tablet PER TUBE SCH (16:30)
[2020-04-27] MEDS ORDERED: Atorvastatin Calcium 40 MG TAB PER TUBE SCH (21:00)
[2020-04-28] MEDS ORDERED: Aspirin Chewable 81 MG TAB PER TUBE SCH (09:00)
[2020-04-28] MEDS ORDERED: Clopidogrel Bisulfate 75 MG TAB PER TUBE SCH (09:00)
[2020-04-28] MEDS ORDERED: Pantoprazole 40 MG GRANULES PACKET PER TUBE SCH (09:00)
--- NOTE | 2020-05-11 12:09 | EKG ---
Test Reason : Blood Pressure : / mmHG Vent. Rate : 077 BPM Atrial Rate : 084 BPM P-R Int : 128 ms QRS Dur : 078 ms QT Int : 328 ms P-R-T Axes : 070 040 063 degrees QTc Int : 371 ms Normal sinus rhythm Nonspecific T wave abnormality Abnormal ECG Confirmed by DR. Alvin HURT ([id number]) on 05/11/2020 12:09:07 PM Referred By: SU Confirmed By:DR. Alvin HURT
== END 2020-04-27 20:00 | DRG 853 ==
LOC: ERS 15:20 → IMCU/EMU 17:38 → EEVIPCON 17:38 → 2NO 04-17 16:55 → 2SE 04-19 11:17
PROVIDERS: ADMIT Internal Medicine; ATTEND Internal Medicine
PROC: 009U3ZX Drainage of Spinal Canal, Percutaneous Approach, Diagnostic (ICD-10-PCS; 2020-04-10)
PROC: 0JB90ZZ Excision of Buttock Subcutaneous Tissue and Fascia, Open Approach (ICD-10-PCS; principal; 2020-04-12)
PROC: 0DH63UZ Insertion of Feeding Device into Stomach, Percutaneous Approach (ICD-10-PCS; 2020-04-18)
DX: A41.9 Sepsis, unspecified organism (principal); L89.153 Pressure ulcer of sacral region, stage 3; R40.20 Unspecified coma; G92 Toxic encephalopathy; I63.40 Cerebral infarction due to embolism of unspecified cerebral artery; J69.0 Pneumonitis due to inhalation of food and vomit; J18.9 Pneumonia, unspecified organism; M62.82 Rhabdomyolysis; N17.9 Acute kidney failure, unspecified; E87.0 Hyperosmolality and hypernatremia; E87.2 Acidosis; I50.32 Chronic diastolic (congestive) heart failure; Z20.828 Contact with and (suspected) exposure to other viral communicable diseases; E78.5 Hyperlipidemia, unspecified; E78.00 Pure hypercholesterolemia, unspecified; G30.9 Alzheimer's disease, unspecified; F02.80 Dementia in other diseases classified elsewhere, unspecified severity, without behavioral disturbance, psychotic disturbance, mood disturbance, and anxiety; F41.9 Anxiety disorder, unspecified; F32.9 Major depressive disorder, single episode, unspecified; F20.9 Schizophrenia, unspecified; I25.10 Atherosclerotic heart disease of native coronary artery without angina pectoris; E86.0 Dehydration; I11.0 Hypertensive heart disease with heart failure; I95.89 Other hypotension; E87.6 Hypokalemia; D64.9 Anemia, unspecified; R65.20 Severe sepsis without septic shock; R56.9 Unspecified convulsions; R13.12 Dysphagia, oropharyngeal phase; R19.7 Diarrhea, unspecified; R31.0 Gross hematuria; L89.312 Pressure ulcer of right buttock, stage 2; Z86.73 Personal history of transient ischemic attack (TIA), and cerebral infarction without residual deficits; Z88.0 Allergy status to penicillin; Z79.899 Other long term (current) drug therapy; Z98.61 Coronary angioplasty status
CPT/HCPCS: 36415; 36416; 36600; 51702; 70450; 70553; 71045; 72125; 74230; 80048; 80053; 80061; 80202; 80306; 80307; 81003; 81015; 82140; 82550; 82553; 82805; 82945; 83605; 83630; 83690; 83735; 83880; 84100; 84157; 84443; 84484; 85025; 85027; 86140; 86644; 86645; 86694; 86695; 86696; 86788; 86789; 87040; 87045; 87046; 87070; 87086; 87205; 87324; 87427; 87449; 87635; 89051; 93005; 93010; 93306; 93880; 94640; 95712; 95819; 95957; 96365; 96366; 96375; A9579; C9113; J0133; J0692; J1644; J1953; J1956; J2704; J3370; J3480; J3490; J7620; U0002; U0003

== ENCOUNTER 2020-06-05 02:57 | Emergency (ER) | payer MEDICARE ==
--- NOTE | 2020-06-05 09:28 | RAD ---
ABDOMEN 1 VIEW: HISTORY: PEG tube check. FINDINGS: PEG tube is in place. Oral contrast has been injected through the tube and is within the stomach. N o evidence for extravasation. IMPRESSION: PEG tube tip is within the stomach. No evidence of contrast extravasation. No overt abnormally dila keyanna small bowel. POS: OFF
[2020-06-05] MEDS ORDERED: GASTROGRAFIN 30 ML BOT ONE (10:21)
== END 2020-06-05 05:48 ==
LOC: ERS 02:57
DX: K94.23 Gastrostomy malfunction (principal); E78.5 Hyperlipidemia, unspecified; E78.00 Pure hypercholesterolemia, unspecified; I10 Essential (primary) hypertension
CPT/HCPCS: 43762; 74018; Q9963

== ENCOUNTER 2020-09-15 00:46 | Emergency (ER) | payer MEDICARE ==
[2020-09-15] MEDS ORDERED: GASTROGRAFIN 30 ML BOT ONE (12:54)
== END 2020-09-15 02:58 ==
LOC: ERS 00:46
DX: Z43.1 Encounter for attention to gastrostomy (principal); Z86.73 Personal history of transient ischemic attack (TIA), and cerebral infarction without residual deficits; E78.5 Hyperlipidemia, unspecified; E78.00 Pure hypercholesterolemia, unspecified; I10 Essential (primary) hypertension; G30.9 Alzheimer's disease, unspecified; F02.80 Dementia in other diseases classified elsewhere, unspecified severity, without behavioral disturbance, psychotic disturbance, mood disturbance, and anxiety; Z79.82 Long term (current) use of aspirin; Z79.899 Other long term (current) drug therapy
CPT/HCPCS: 43762; 74018; Q9963